=== PATIENT | female | born 1950 | race Caucasian/White ===

== ENCOUNTER 2016-06-04 08:37 | Emergency (ER) | payer OTHER ==
[2016-06-04] MEDS ORDERED: HYDROcod/ACETAM 5/325 MG TABLET PO STA (09:43)
[2016-06-04] MEDS ORDERED: DEXAMETHASONE 10 MG/ML VIAL PO STA (09:43)
[2016-06-04] MEDS ORDERED: GABAPENTIN 100 MG CAPSULE PO STA (09:43)
[2016-06-04] MEDS ORDERED: HYDROcod/ACETAM 5/325 MG TABLET ONE (10:29)
[2016-06-04] MEDS ORDERED: CHERRY SYRUP 10 ML UDC PO ONE (10:29)
[2016-06-04] MEDS ORDERED: GABAPENTIN 100 MG CAPSULE PO ONE (10:29)
[2016-06-04] MEDS ORDERED: DEXAMETHASONE 10 MG/ML VIAL ONE (10:29)
== END 2016-06-04 12:00 | disposition home or self-care (01) ==
DX: M79.641 Pain in right hand (principal); W01.198A Fall on same level from slipping, tripping and stumbling with subsequent striking against other object, initial encounter; G56.01 Carpal tunnel syndrome, right upper limb; M06.9 Rheumatoid arthritis, unspecified
CPT/HCPCS: 36415; 85025; 85651; 86140; 99283; A9270

== ENCOUNTER 2019-10-07 08:20 | Emergency (ER) | payer MEDICARE, OTHER ==
[2019-10-07] MEDS ORDERED: LIDOCAINE 1% 2 ML VIAL MC ONE (08:44)
[2019-10-07] MEDS ORDERED: SULFAMETH/TRIMETH DS 800/160 MG TABLET PO STA (08:44)
[2019-10-07] MEDS ORDERED: cefTRIAXone 1 GM VIAL IM STA (08:44)
--- NOTE | 2019-10-07 09:29 | ED Physician Documentation ---
PD HPI SKIN - Stated complaint Stated Complaint: R LEG PX - Chief complaint Chief Complaint: Wound - History obtained from History obtained from: Patient - Additional information Additional information: Patient comes emergency department complaining of redness, pain, and swelling to her right calf after sustaining a bite or sting yesterday. No fever or chills. Patient states she has had 2 other spider bites and they have reacted the same way. No drainage. No other complaints at this time Review of Systems Ten Systems: 10 systems reviewed and negative Constitutional: reports: Reviewed and negative Eyes: reports: Reviewed and negative Ears: reports: Reviewed and negative Nose: reports: Reviewed and negative Throat: reports: Reviewed and negative Cardiac: reports: Reviewed and negative Respiratory: reports: Reviewed and negative GI: reports: Reviewed and negative : reports: Reviewed and negative Skin: reports: Bite / sting, Other (Erythema) Musculoskeletal: reports: Extremity swelling Neurologic: reports: Reviewed and negative Psychiatric: reports: Reviewed and negative Endocrine: reports: Reviewed and negative Immunocompromised: reports: Reviewed and negative PD PAST MEDICAL HISTORY - Past Medical History Past Medical History: No Cardiovascular: None Respiratory: None Neuro: None Endocrine/Autoimmune: HyPOthyroidism GI: None PHLEBOTOMY SPECIALIST: None : None HEENT: None Psych: None Musculoskeletal: Rheumatoid arthritis Derm: None - Past Surgical History Past Surgical History: Yes /PHLEBOTOMY SPECIALIST: Hysterectomy - Present Medications Home Medications: Ambulatory Orders Medication Instructions Recorded Confirmed Cephalexin [Keflex] 500 mg PO Q6H #28 capsule 10/07/19 Sulfamethox/Trimeth 800/160 1 each PO BID #14 tablet 10/07/19 [Bactrim Ds 800/160] - Allergies Allergies/Adverse Reactions: Allergies Allergy/AdvReac Type Severity Reaction Status Date / Time hydrochlorothiazide Allergy Anaphylaxis Verified 10/07/19 08:37 hydroxychloroquine Allergy Anaphylaxis Verified 10/07/19 08:37 ibuprofen AdvReac Nausea Verified 10/07/19 08:37 - Social History Does the pt smoke?: Yes Does the pt drink ETOH?: Yes ETOH Use: Beer - Immunizations Immunizations are current?: Yes PD ED PE NORMAL - Vitals Vital signs reviewed: Yes - General General: Alert and oriented X 3, No acute distress - HEENT HEENT: Atraumatic, PERRL, EOMI, Moist mucous membranes - Neck Neck: Supple, no meningeal sign - Cardiac Cardiac: RRR, No murmur, Strong equal pulses - Respiratory Respiratory: No respiratory distress - Derm Derm: Warm and dry, Other (Intense erythema involving the inferior third of the patient's right calf and extending to the patient's ankle. Superiorly located within the erythema is a dark, purplish discolored focus, which appears to be a puncture wound. mild induration; no fluctuance.) - Extremities Extremities: No deformity - Neuro Neuro: Alert and oriented X 3 - Psych Psych: Normal mood, Normal affect Results - Vitals Vitals: Vital Signs - 24 hr 10/07/19 10/07/19 10/07/19 08:34 08:49 09:41 Temperature 36.8 C 36.8 C 36.3 C L Heart Rate 114 H 114 H 102 H Respiratory 16 16 16 Rate Blood Pressure 190/104 H 190/104 H 169/99 H O2 Saturation 98 98 100 Oxygen O2 Source Room air PD MEDICAL DECISION MAKING - ED course Complexity details: considered differential, d/w patient ED course: I discussed with the patient that this does appear to be more than just an inflammatory reaction to a bite/sting, and I felt that she should be on an tibiotics. The patient was started on Bactrim here in the emergency department. She is not a diabetic and is not on chronic steroids for her rheumatoid arthritis, and I do not feel she needs IV antibiotics at this point in time. We have discussed the usual indications for return and the need to take the antibiotics regularly, as scheduled. Patient is agreeable to this plan. Departure - Departure Disposition: 01 Home, Self Care Clinical Impression: Insect bite Qualifiers: Encounter type: initial encounter Site of insect bite: lower leg Laterality: right Qualified Code(s): S80.861A - Insect bite (nonvenomous), right lower leg, initial encounter Cellulitis Qualifiers: Site of cellulitis: extremity Laterality: right Condition: Stable Instructions: Cellulitis Dc, ED Sting Bite Insect Infec Prescriptions: Sulfamethox/Trimeth 800/160 [Bactrim Ds 800/160] 1 each PO BID #14 tablet Cephalexin [Keflex] 500 mg PO Q6H #28 capsule Discharge Date/Time: 10/07/19 09:52
[2019-10-07 09:52] VITALS: BP 169/99
== END 2019-10-07 09:52 | disposition home or self-care (01) ==
LOC: ED 08:20
DX: S80.861A Insect bite (nonvenomous), right lower leg, initial encounter (principal); L03.115 Cellulitis of right lower limb; W57.XXXA Bitten or stung by nonvenomous insect and other nonvenomous arthropods, initial encounter; F17.200 Nicotine dependence, unspecified, uncomplicated
CPT/HCPCS: 96372; 99283; 99284; A9270

== ENCOUNTER 2019-11-14 09:28 | Emergency (ER) | payer MEDICARE, OTHER ==
[2019-11-14] MEDS ORDERED: CLINDAMYCIN 150 MG CAPSULE PO STA (09:52)
--- NOTE | 2019-11-14 09:55 | ED Physician Documentation ---
History of Present Illness - Stated complaint Stated Complaint: INSECT BITE F/U - Chief complaint Chief Complaint: Ext Problem - History obtained from History obtained from: Patient - Additonal information Additional information: This is a 69-year-old woman who was seen a little over a month ago for a spider bite on her right calf. She was placed on Keflex and Bactrim and was doing okay on antibiotics. Finished the antibiotics now about a month ago and has quite painful increased redness of that leg with a sore. 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 : None HEENT: None Psych: None Musculoskeletal: Rheumatoid arthritis Derm: None - Past Surgical History Past Surgical History: Yes /STAVE GRADER: Hysterectomy - Present Medications Home Medications: Ambulatory Orders Medication Instructions Recorded Confirmed Cephalexin [Keflex] 500 mg PO Q6H #28 capsule 10/07/19 Sulfamethox/Trimeth 800/160 1 each PO BID #14 tablet 10/07/19 [Bactrim Ds 800/160] Clindamycin HCl [Clindamycin 300MG 300 mg PO Q6H 14 Days capsule 11/14/19 CAP] Hydrocodone/Acetaminophen 1 - 2 tab PO Q6H PRN #15 tablet 11/14/19 [Hydrocodone-Acetamin 5-325 mg] - Allergies Allergies/Adverse Reactions: Allergies Allergy/AdvReac Type Severity Reaction Status Date / Time hydrochlorothiazide Allergy Anaphylaxis Verified 11/14/19 09:34 hydroxychloroquine Allergy Anaphylaxis Verified 11/14/19 09:34 ibuprofen AdvReac Nausea Verified 11/14/19 09:34 - Social History Does the pt smoke?: Yes Does the pt drink ETOH?: Yes - Immunizations Immunizations are current?: Yes PD ED PE NORMAL - Vitals Vital signs reviewed: Yes - General General: Alert and oriented X 3, No acute distress - HEENT HEENT: PERRL, EOMI - Extremities Extremities: Other (There is a necrotic ulcer about two thirds of the way down the calf, it was debrided during exam and a culture was obtained. There is cellulitis from the upper calf down throughout the foot. I was unable to palpate pedal pulses but they were dopplerable.) - Neuro Neuro: Alert and oriented X 3, Normal speech Results - Vitals Vitals: Vital Signs - 24 hr 11/14/19 11/14/19 09:34 09:56 Temperature 36.7 C 37.1 C Heart Rate 124 H 108 H Respiratory 20 18 Rate Blood Pressure 196/112 H 160/100 H O2 Saturation 98 98 Oxygen O2 Source Room air PD MEDICAL DECISION MAKING - ED course ED course: This is a 69-year-old woman who has a recalcitrant ulcer with cellulitis on the right lower extremity. She is tachycardic but not febrile. I recommended that we do labs. 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 As such we negotiated that I would start her on clindamycin and if not quickly improving, she needed to figure out alternative care arrangements for her such that she could be hospitalized if she does not respond to this. Also discussed with her that she needed to contact her primary care physician, the necrotic ulcer probably needs a wound care referral. Departure - Departure Disposition: 01 Home, Self Care Clinical Impression: Infected ulcer of skin Qualifiers: Non-pressure ulcer stage: with fat layer exposed Qualified Code(s): L98.492 - Non-pressure chronic ulcer of skin of other sites with fat layer exposed Condition: Good Record reviewed to determine appropriate education?: Yes Instructions: ED Skin Infec MRSA Suspect Conf Prescriptions: Clindamycin HCl [Clindamycin 300MG CAP] 300 mg PO Q6H 14 Days capsule Hydrocodone/Acetaminophen [Hydrocodone-Acetamin 5-325 mg] 1 - 2 tab PO Q6H PRN #15 tablet PRN Reason: Pain Comments: We are performing a wound culture and will call you in a couple of days if a resistant organism is identified. As discussed I have recommended labs today to see if you need to be admitted, since you cannot be admitted because you are caring for your , I would recommend returning immediately if worsening. Also you need to contact your primary care physician as I think a wound care referral is in order. Keep it elevated as much as possible. Even though you have pulses in your foot you may have some elements of peripheral vascular disease and I recommend cessation of smoking. Discharge Date/Time: 11/14/19 10:09
[2019-11-14 09:57] VITALS: BP 160/100
== END 2019-11-14 10:09 | disposition home or self-care (01) ==
LOC: ED 09:28
DX: L97.213 Non-pressure chronic ulcer of right calf with necrosis of muscle (principal); L03.115 Cellulitis of right lower limb; R00.0 Tachycardia, unspecified; F17.200 Nicotine dependence, unspecified, uncomplicated
CPT/HCPCS: 87070; 87077; 87181; 87205; 99283

== ENCOUNTER 2019-11-21 13:30 | Inpatient (IN) | payer MEDICARE, OTHER ==
[2019-11-21] MEDS ORDERED: levoFLOXacin 750 MG/150 ML 750 MG/150 ML BAG IV STA (14:34)
--- NOTE | 2019-11-21 14:37 | ED Physician Documentation ---
History of Present Illness - Stated complaint Stated Complaint: INSECT BITE CHECK - Chief complaint Chief Complaint: Ext Problem - History obtained from History obtained from: Patient - Additonal information Additional information: 69-year-old female returns to the emergency department for evaluation of treatment of a nonhealing right calf ulceration and right leg infection. She was initially seen 10/07/2019 for evaluation of posterior calf cellulitis that she attributed to a spider bite. With the initial ED visit she was started on Keflex and Bactrim. She states that she did at first have some improvement in the swelling and erythema but it did not fully go away. She re-presented to the emergency department 11/14/[address] Dr[address] Mackay. At that time she had fairly significant right lower calf erythema with a noted posterior calf ulceration. She declined labs or admission as she had nobody to care for her . A wound culture was obtained and she was started on clindamycin. She states that for the first 2 days she was on clindamycin the redness improved but over the last 3 days now the redness has increased markedly. She has had no fevers. Denies chest pain or shortness of breath. She replies to me that we have 3 days to make this better as she now has care for her . PMH: rheumatoid arthritis and hypertension. Social: Positive tobacco Meds: None other than current clindamycin rx Review of Systems Constitutional: denies: Fever Eyes: reports: Reviewed and negative Ears: reports: Reviewed and negative Nose: reports: Reviewed and negative Throat: reports: Reviewed and negative Cardiac: reports: Chest pain / pressure Respiratory: reports: Reviewed and negative GI: reports: Reviewed and negative : reports: Reviewed and negative Skin: reports: Lesions Musculoskeletal: reports: Joint pain. 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: Yes Smoking Status: Current every day smoker Does the pt drink ETOH?: Yes Does the pt have substance abuse?: No - Immunizations Immunizations are current?: Yes PD ED PE EXPANDED - General General: Alert, No acute distress - Neck Neck: Supple w/out meningeal sx. No: Adenopathy - Cardiac Cardiac: Regular Rate, Regular Rhythm, Radial strong equal, Cap refill < 2 sec (Right foot with biphasic Doppler pulses both tibial and dorsalis pedis. Brisk cap refill.) - Respiratory Respiratory: No: Distress, Labored - Abdomen Abdomen: Normal Bowel sounds. No: Tender to palpation - Extremities Extremities: Right leg (Extensive swelling and erythema of right leg from just below the knee to encompass the entire foot. Large ulceration central posterior calf with milky and honey crusting exudate. Smaller 1 cm ulceration right lateral calf with some purulent exudate) - Neuro Neuro: Alert and Oriented X 3, CNII-XII intact, Normal speech - GCS Eye Opening: Spontaneous Motor: Obeys Commands Verbal: Oriented Total: 15 Results - Vitals Vitals: Vital Signs - 24 hr 11/21/19 13:42 Temperature 37 C Heart Rate 92 Respiratory 16 Rate Blood Pressure 190/102 H O2 Saturation 100 Oxygen O2 Source Room air - Labs Labs: Laboratory Tests 11/21/19 11/21/19 11/21/19 14:52 14:52 14:52 WBC 3.8 L RBC 4.59 Hgb 14.5 Hct 43.7 MCV 95.2 MCH 31.6 H MCHC 33.2 RDW 12.7 Plt Count 230 MPV 9.4 Neut # (Auto) 2.3 Lymph # (Auto) 1.1 L [place] # (Auto) 0.3 Eos # (Auto) 0.0 Baso # (Auto) 0.0 Absolute Nucleated RBC 0.00 Nucleated RBC % 0.0 Sodium 133 L Potassium 3.6 Chloride 98 L Carbon Dioxide 25 Anion Gap 10.0 BUN < 5 L Creatinine 0.4 Estimated GFR (MDRD) 159 Glucose 103 H Lactic Acid 1.0 Calcium 9.2 Total Bilirubin 0.6 AST 28 ALT 24 Alkaline Phosphatase 74 C-Reactive Protein 1.2 H Total Protein 8.6 H Albumin 4.2 Globulin 4.4 H Albumin/Globulin Ratio 1.0 Lipase 41 PD MEDICAL DECISION MAKING - ED course Complexity details: reviewed old records, reviewed results, re-evaluated patient, considered differential, d/w patient ED course: 69-year-old female returns to the emergency department for evaluation and treatment of a right posterior leg infection that has failed to respond to now 2 courses of oral antibiotics. Recent wound culture shows that it grew Klebsiella, staph and enterococcus. Unfortunately the staff showed resistance to current clindamycin. However all 3 were susceptible to Levaquin, which I have initiated. A repeat wound culture has been obtained. She has no significant leukocytosis. Her lactic acid is not elevated. CRP is only marginally elevated. I have discussed these findings with the day hospitalist Dr. Sams. She is agreed that the patient should come in overnight for observation and IV antibiotic. Departure - Departure Disposition: ED Place in Observation Clinical Impression: Cellulitis of right leg Leg ulcer Qualifiers: Laterality: right Non-pressure ulcer stage: with fat layer exposed Qualified Code(s): L97.912 - Non-pressure chronic ulcer of unspecified part of right lower leg with fat layer exposed Hypertension Qualifiers: Hypertension type: unspecified Qualified Code(s): I10 - Essential (primary) hypertension Condition: Stable
[2019-11-21 15:04] LABS: BASOPHILS % (AUTO) 0.8 %; EOSINOPHILS % (AUTO) 0.8 %; HGB - HEMOGLOBIN 14.5 g/dL (12.0-16.0); LYMPHOCYTES # (AUTO) 1.1 10^3/uL (1.5-3.5); LYMPHOCYTES % (AUTO) 29.4 %; MEAN CORPUSCULAR HEMOGLOBIN 31.6 pg (27.0-31.0); MEAN CORPUSCULAR HGB CONC 33.2 g/dL (32.0-36.0); MEAN CORPUSCULAR VOLUME 95.2 fL (81.0-99.0); MEAN PLATELET VOLUME 9.4 fL (7.9-10.8); MONOCYTES # (AUTO) 0.3 10^3/uL (0.0-1.0); MONOCYTES % (AUTO) 7.9 %; NEUTROPHILS # (AUTO) 2.3 10^3/uL (1.5-6.6); NEUTROPHILS % (AUTO) 60.6 %; PLT - PLATELET COUNT 230 10^3/uL (130-450); RED BLOOD COUNT 4.59 10^6/uL (4.20-5.40); RED CELL DISTRIBUTION WIDTH 12.7 % (12.0-15.0); WHITE BLOOD COUNT 3.8 x10^3/uL (4.8-10.8)
[2019-11-21 15:25] LABS: ALBUMIN 4.2 g/dL (3.2-5.5); ALKALINE PHOSPHATASE 74 IU/L (42-121); ALT ALANINE AMINOTRANSFERASE 24 IU/L (10-60); AST ASPARTATE AMINOTRANSFERASE 28 IU/L (10-42); BILIRUBIN,TOTAL 0.6 mg/dL (0.2-1.0); BUN - BLOOD UREA NITROGEN < 5 mg/dL (6-20); CALCIUM 9.2 mg/dL (8.5-10.3); CARBON DIOXIDE - CO2 25 mmol/L (21-32); CHLORIDE 98 mmol/L (101-111); CREATININE 0.4 mg/dL (0.4-1.0); CRP - C-REACTIVE PROTEIN 1.2 mg/dL (0-1.0); GLUCOSE 103 mg/dL (70-100); LIPASE 41 U/L (22-51); SODIUM 133 mmol/L (135-145); TOTAL PROTEIN 8.6 g/dL (6.7-8.2)
[2019-11-21] MEDS ORDERED: oxyCODONE 5 MG TABLET PO PRN (15:54)
[2019-11-21] MEDS ORDERED: ONDANSETRON 4 MG/2 ML VIAL IVP PRN (15:54)
[2019-11-21] MEDS ORDERED: SODIUM CHLORIDE FLUSH 0.9% 10 ML SYRINGE IVP PRN (15:54)
[2019-11-21] MEDS ORDERED: cloNIDine 0.1 MG PATCH TOP SCH (16:00)
[2019-11-21 16:26] LABS: INR 1.1 (0.8-1.2)
--- NOTE | 2019-11-21 16:45 | PHARMACY PROGRESS NOTE ---
- Best Possible Medication History Admit Date and Time: 11/21/19 1552 Processed by: Pharmacy Medication History completed: Yes Patient Interview: Completed Secondary Source(s): Physician records (PATIENT INTERVIEWED BY DIVISION OPERATIONS MANAGER. PATIENT REPORTS NO HOME MEDICATIONS ), Pharmacy records, Insurance records As the person ultimately responsible for medication therapy, providers are able to order a medication from an existing home medication list in [facility] via the "Reconcile Routine" prior to Confirmation of that medication by sales and support center agent. Such practice is discouraged except when the physician, in their clinical judgment, deems that a medical need exists for a medication without regard to previous use.
[2019-11-21] MEDS ORDERED: METOPROLOL 5 MG/5 ML VIAL IVP STA (16:49)
[2019-11-21] MEDS ORDERED: VANCOMYCIN INJ 2 GM in SODIUM CHLORIDE 0.9% 500 ML IV SCH (17:30)
--- NOTE | 2019-11-21 17:57 | PHARMACY PROGRESS NOTE ---
- Therapy Status Vancomycin regimen day #: 1 Therapy status: Awaiting steady state Basis for treatment: Empirical Treatment indication: 11/20 VANCOMYCIN INITIATED: 2G X1 LOADING DOSE MAINTENACE DOSE: 1250 Q8H CRCL: ~90ML/MIN; SCR: 0.4MG/DL T1/2 = ~8H NEW CULTURES DRAWN 11/20 IN ED TROUGH 11/21 @ 1630 (BEFORE 4TH DOSE) Trough goal: 15-20 - CAREN Risk Risk level for Acute Kidney Injury: Moderate - Monitoring and Recommendation Clinical response to treatment: I&O Previous 24 hours 11/19/19 11/20/19 11/21/19 23:59 23:59 23:59 Intake Total 150 Balance 150 Lab Results 11/21/19 14:52 BUN < 5 L Creatinine 0.4 Estimated GFR (MDRD) 159 Cultures 11/21/19 15:41 Leg - Right Wound Culture - Preliminary Monitoring plan: Daily serum creatinine
[2019-11-21] MEDS: SODIUM CHLORIDE 0.9% 1,000 ML IV SCH (18:29)
[2019-11-21] MEDS: SODIUM CHLORIDE FLUSH 0.9% 10 ML SYRINGE IVP SCH (18:42)
--- NOTE | 2019-11-21 19:56 | HISTORY & PHYSICAL EXAMINATION ---
DATE OF SERVICE: 11/21/2019 Physician: Candice Greer MD HISTORY OF PRESENT ILLNESS: This is a 69-year-old white female with a history of intermittent or white coat hypertension, rheumatoid arthritis, who has previously been on immunosuppressive therapy, but none in the last 3-5 years, history of 3-jwpf-t-day smoking. In September of this year, she developed a spider bite of her right posterior calf and presented to the emergency room, as it was getting red, and was started on Keflex and Bactrim. It improved slightly, and then started to get worse with an open wound and more redness and swelling and she returned back to the ER on 11/13. A large ulcer was seen that was debrided and sent for culture, and she was started on clindamycin, she again started to get improvement in the redness and swelling, but then over the last 3 days it has worsened and has had the most spread of her swelling, has burning pain, has marked redness with bullae and there are two areas now with openings that have scabbed up. Since that debridement and wound culture was sent for evaluation, it has grown Klebsiella, Staphylococcus aureus and Enterococcus. Because of the worsening today, she returned again to the ER. In the ER, she was found to have no fever, a white count that was low at 3.8, elevated CRP of 1.2, blood pressure of 190/102 and marked redness of the lower extremity with swelling and 2 scabbed over ulcers of the right calf. She is being admitted for management of cellulitis and a leg ulcer that has failed 2 different courses of antibiotics in a patient with leukopenia. PAST MEDICAL HISTORY 1. Hypertension. 2. Rheumatoid arthritis. 3. Remote history of cervical cancer. ALLERGIES 1. HYDROCHLOROTHIAZIDE. 2. HYDROXYCHLOROQUINE. 3. IBUPROFEN. MEDICATIONS: None. FAMILY HISTORY: Positive for cancer and dementia and atherosclerotic heart disease. She has one living son who lives in [place] is healthy. SOCIAL HISTORY: Patient used to be a 0-kkct-z-day smoker that she decreased on her own to 1/2-pack a day when the leg [id number] began, which is now 2 months ago. She used to drink more alcohol, but now has not had any drinks except for 1 beer over this 2 month period, also because of the infection, she said. She has marijuana to use p.r.n. but currently has not used it. 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 She is active, drives, does all the housework. REVIEW OF SYSTEMS: There has been no fever, she denies any cardiopulmonary complaints. She describes using only Tylenol for her rheumatoid arthritis pain, no nonsteroidals or any other prescription medicines from a early morning over the past 3 years. She thinks she has carpal tunnel syndrome in the right wrist and is wearing a brace and has the most deformity from her RA in the right hand. A comprehensive review of systems was performed and the pertinent positives are listed, the rest are negative. PHYSICAL EXAMINATION GENERAL: Elderly white female, who appears older than her age. VITAL SIGNS: Blood pressure 190/102, heart rate 90 in sinus rhythm, afebrile at 37 centigrade, room air saturation 100%. HEENT: Unremarkable. NECK: No JVD in a vertical position. CHEST: Clear. HEART: Normal heart sounds. ABDOMEN: Soft, nontender, nondistended. EXTREMITIES: The right hand has a deformity of RA in most of her joints and she is wearing a wrist brace. The left hand appears normal. The left leg appears normal. The right leg has bright red swelling from the midfoot up to just below the knee and there was 1 area of bullae of the right anterior arboleda, and there are 2 areas of deep ulceration of the right posterior arboleda, which are scabbed over and dry. NEUROLOGIC: Grossly intact. LABORATORY DATA: Sodium 133, potassium 3.6, BUN less than 5, creatinine 0.4. Lactic acid 1.0. Normal liver tests. C-reactive protein 1.2. Lipase normal. INR normal. White blood count 3.8, platelet count 230, hemoglobin 14.5. No EKG was done. No chest x-ray was done or any imaging of the leg. The microbiology data, which is from 11/14/2019 shows growth of Klebsiella, Staphylococcus aureus and Enterococcus, all 3 are sensitive to Levaquin. The Staphylococcus aureus is resistant to Clindamycin. PRINCIPAL DIAGNOSES 1. Cellulitis. No SIRS or sepsis, given normal vital signs. 2. Leg ulcer. 3. Leukopenia. 4. Hypertension, uncontrolled. 5. Smoker. 6. Rheumatoid arthritis. PLAN: Admit patient to inpatient status, given the fact that she has failed 2 courses of antibiotics as an outpatient and her concern of significant infection with the leukopenia. Resend a wound culture, this was done in the ER. Begin IV antibiotics. She received Levaquin x1 dose in the ER because all 3 bacteria were reported to be sensitive to Levaquin. Will start a course of iv Vancomycin for the Staph species, and use iv Ceftriaxone (these were chosen after discussion with Pharmacist, Itzel). Await new culture results to tailor the antibiotics. Obtain blood cultures. Follow her CBC daily. Obtain leg XRay imaging to evaluate for deeper infection and obtain CT to evaluate for necrotizing fascitis or osteomyelitis. Continue treatment with what she uses, Tylenol, for her arthritic pain. Patient was using Cetaphil soap and some type of cream for the redness, but it was causing burning and itching and not helpful. Topical management for the skin and the calf ulcer will be done after consultation with general surgery versus orthopedic surgery for probable ulcer debridement. Start medications to treat her poorly controlled HTN; will start a Clonidine patch, will use iv Lopressor or Labetolol or iv Hydralazine for urgent hypertensive BP management. Will order a low salt diet; as I told her this, she said she "doesn't believe in that" and said she eats salt freely. Obtain an EKG to evaluate for LVH and as a pre-op evaluation, if she will need surgery. Given the untreated HTN and history of 2 PPD smoking, will also do FREDIS of the right lower extremity, to evaluate for vascular disease of that leg. A Nicotine patch will be ordered to use while she is here. Depending on her discharge location, her night time babysitter caregiving for her will need assistance; a Social Work consult will be requested to help with that plan. DEEP VENOUS THROMBOSIS PROPHYLAXIS: Pharmacotherapy. CODE STATUS: DNR. ATTESTATION: Patient is expected to be discharged or transferred to another facility within 96 hours: Yes. TD: 11/21/2019 17:34 [email or web address]
[2019-11-21] MEDS: diphenhydrAMINE INJ 50 MG/ML VIAL IVP PRN (20:17)
[2019-11-21] MEDS: FAMOTIDINE 20 MG TABLET PO SCH (21:25)
[2019-11-22] MEDS: SODIUM CHLORIDE FLUSH 0.9% 10 ML SYRINGE IVP SCH ×3 (00:11→17:49)
[2019-11-22] MEDS: ACETAMINOPHEN 325 MG TABLET PO PRN ×4 (00:18→20:39)
[2019-11-22] MEDS: VANCOMYCIN INJ 1 GM, VANCOMYCIN INJ 250 MG in SODIUM CHLORIDE 0.9% 250 ML IV SCH ×2 (05:17→17:58)
[2019-11-22] MEDS ORDERED: SODIUM CHLORIDE 0.9% IV SCH (05:30)
[2019-11-22] MEDS ORDERED: VANCOMYCIN IV SCH (05:30)
[2019-11-22 05:55] LABS: EOSINOPHILS # (AUTO) 0.1 10^3/uL (0.0-0.7); EOSINOPHILS % (AUTO) 1.6 %; HGB - HEMOGLOBIN 12.7 g/dL (12.0-16.0); LYMPHOCYTES % (AUTO) 33.1 %; MEAN CORPUSCULAR HEMOGLOBIN 32.2 pg (27.0-31.0); MEAN CORPUSCULAR HGB CONC 33.7 g/dL (32.0-36.0); MEAN CORPUSCULAR VOLUME 95.4 fL (81.0-99.0); MEAN PLATELET VOLUME 9.7 fL (7.9-10.8); MONOCYTES # (AUTO) 0.5 10^3/uL (0.0-1.0); MONOCYTES % (AUTO) 14.6 %; NEUTROPHILS # (AUTO) 1.5 10^3/uL (1.5-6.6); NEUTROPHILS % (AUTO) 49.7 %; PLT - PLATELET COUNT 183 10^3/uL (130-450); RED BLOOD COUNT 3.95 10^6/uL (4.20-5.40); RED CELL DISTRIBUTION WIDTH 12.5 % (12.0-15.0); WHITE BLOOD COUNT 3.1 x10^3/uL (4.8-10.8)
[2019-11-22 06:06] LABS: BUN - BLOOD UREA NITROGEN < 5 mg/dL (6-20); CALCIUM 8.6 mg/dL (8.5-10.3); CARBON DIOXIDE - CO2 22 mmol/L (21-32); CHLORIDE 105 mmol/L (101-111); CREATININE 0.4 mg/dL (0.4-1.0); GLUCOSE 76 mg/dL (70-100); SODIUM 136 mmol/L (135-145)
[2019-11-22] MEDS ORDERED: IOVERSOL 320 100 ML VIAL IVP ONE ×2 (09:02→17:55)
--- NOTE | 2019-11-22 09:49 | CT Report ---
PROCEDURE: LOWER EXTREMITY W - RT INDICATIONS: R leg cellulitis, eval for nec fasc or osteomyelit TECHNIQUE: After IV contrast infusion, 1 mm axial sections acquired of the right lower leg, with coronal and sag ittal reformats. COMPARISON: None. FINDINGS: Image quality: Excellent. Bones: There is significant osteopenia. Moderate tricompartmental osteoarthritis in right knee is se en. A right ankle joint osteoarthritic changes also noted. No fracture or dislocation. No cortical er osion or destruction. No periosteal reaction is seen. There is no suspicious intraosseous lesion. Ost eoarthritic changes also noted throughout right ankle and foot. Well-defined plantar calcaneal enthes ophyte is seen. Soft tissues: There is no significant right knee joint effusion. Subcutaneous fat stranding and tiffany a throughout right lower leg is seen with mild overlying skin thickening. Subtle ulceration involving posterior lateral aspect of mid to distal lower leg is noted. No discrete drainable abscess collecti on. There is no gross underlying muscle involvement. No intramuscular mass or fluid collection. No fu ll-thickness ankle tendon rupture is seen. Achilles tendon is intact. IMPRESSION: 1. Shallow ulceration involving posterior lateral right mid to lower calf region with extensive cellu litis throughout right lower leg. No discrete drainable abscess collection. No evidence of underlying muscle or tendon involvement. 2. Osteoarthritic changes throughout visualized right lower extremity. No fracture or dislocation. No CT evidence of osteomyelitis. No suspicious intraosseous lesion. Osteopenia. Reviewed by: Phillip Regalado MD on 11/22/2019 9:47 AM PDT Approved by: Phillip Regalado MD on 11/22/2019 9:47 AM PDT Station ID: [id number]
[2019-11-22] MEDS: cefTRIAXone 2 GM in SODIUM CHLORIDE 0.9% MINIBAG 100 ML IV SCH (10:32)
[2019-11-22] MEDS: FAMOTIDINE 20 MG TABLET PO SCH ×2 (10:33→20:38)
[2019-11-22] MEDS: ENOXAPARIN 40 MG/0.4 ML SYRINGE SUBQ SCH (10:33)
[2019-11-22] MEDS: NICOTINE 7 MG PATCH TOP SCH (10:34)
--- NOTE | 2019-11-22 11:37 | PROVIDER PROGRESS NOTE ---
Assessment/Plan - Problem List (1) Cellulitis of right leg Assessment/Plan: The wound culture from her ER debridement done 11/14/2019 has grown out Enterococcus, Klebsiella and Staph aureus. She was on clindamycin and that Staph aureus is clindamycin resistant. She is now on IV antibiotics using iv Vanco and iv Ceftriaxone. A repeat wound culture was sent yesterday at the time of admission. Blood cx also done. Continue iv antibiotic management and await evaluation by surgery for debridement. Await results of CT of the leg to evaluate for necrotizing fasciitis or possible spread into the bone with osteomyelitis. (Per today's radiologist, no plain x- ray of the leg was needed, radiology said to go directly to CT scanning). (2) Leg ulcer Qualifiers: Qualified Code(s): L97.912 - Non-pressure chronic ulcer of unspecified part of right lower leg with fat layer exposed Assessment/Plan: As above. Await for recommendations from the general surgeon after debridement. 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 (3) Leukopenia Assessment/Plan: Perhaps her RA is causing the low white blood count. This is also concerning in terms of possible sepsis however her blood cultures are negative to date, and Lactic Acid level was not elevated. Follow CBC daily. (4) Osteopenia determined by x-ray Assessment/Plan: Will start vit D and calcium po (5) Rheumatoid arthritis Assessment/Plan: In her remote past she was on tx for RA, but not for >2-3 years. Perhaps the RA is causing the leukopenia. She manages the pain of RA with Tylenol, which has been ordered. It could be suppressing a fever, however. (6) Hypertension Qualifiers: Qualified Code(s): I10 - Essential (primary) hypertension Assessment/Plan: Patient was on no meds for blood pressure control for 2 to 3 years and told me yesterday that she did not "believe in a low-salt diet". She has been started on a weekly topical Clonidine patch for management of blood pressure here. (7) Smoker Assessment/Plan: She has been a 2 pack-a-day smoker, but decreased to half-pack a day 2 mos ago when this leg started to be infected. Work-up for peripheral arterial disease is therefore to be done today because of this slow to heal leg ulcer, by getting an FREDIS>> The results of this show that she does have moderate arterio-sclerotic disease and a CTA with runoff is recommended. Will order a lipid panel as well. Nicotine patch has been ordered (8) PVD (peripheral vascular disease) Assessment/Plan: The results of the FREDIS show that she does have mild PVD R leg and a CTA with runoff was recommended to eval R foot. Will order a lipid panel as well. Discussed the importance of smoking cessation with her because of this finding. - Current Meds Current Meds: Current Medications Generic Name Dose Route Start Last Admin Trade Name Freq PRN Reason Stop Dose Admin Acetaminophen 650 mg 11/21/19 15:54 11/22/19 05:22 Tylenol PO 650 mg Q4HR PRN Administration Pain 1 to 4 Clonidine HCl 1 patch 11/21/19 16:00 11/21/19 18:42 [id number] TOP 1 patch Q7D LEV Administration Diphenhydramine HCl 25 mg 11/21/19 20:01 11/21/19 20:17 Benadryl Inj IVP 25 mg Q6H PRN Administration Allergy Symptoms Enoxaparin Sodium 40 mg 11/22/19 09:00 11/22/19 10:33 Lovenox SUBQ Not Given DAILY LEV Famotidine 20 mg 11/21/19 21:00 11/22/19 10:33 Pepcid PO 20 mg BID LEV Administration Sodium Chloride 1,000 mls @ 50 mls/hr 11/21/19 16:00 11/22/19 11:21 Normal Saline 0.9% IV 50 mls/hr .Q20H LEV Infusion Ceftriaxone Sodium 2 gm/ 100 mls @ 200 mls/hr 11/22/19 09:00 11/22/19 11:15 Sodium Chloride IV Infused DAILY LEV Infusion Vancomycin HCl 1 gm/ 250 mls @ 125 mls/hr 11/22/19 05:30 11/22/19 07:20 Vancomycin HCl 250 mg/ Sodium IV Infused Chloride Q12H LEV Infusion Nicotine 1 patch 11/22/19 09:00 11/22/19 10:34 Nicoderm TOP Not Given DAILY LEV Sodium Chloride 10 ml 11/21/19 17:00 11/22/19 10:34 Normal Saline Flush 0.9% IVP 10 ml 0100,0900,1700 LEV Administration - Lab Result Fish Bone Diagrams: 11/22/19 05:51 11/22/19 05:51 - Additional Planning My Orders: My Active Orders 11/21/19 15:54 Activity Orders [RC] Q2HR IO [RC] IOSHIFT Initiate Bowel Care Protocol [RC] .protocol Initiate Line Care Protocol [RC] QSHIFT Initiate Personal Care Protoco [RC] .protocol Oxygen Therapy [RC] .PRN Vital Signs [RC] 0800,1600,0000 Acetaminophen [Tylenol] 650 mg PO Q4HR PRN Ondansetron Inj [Zofran Inj] 4 mg IVP Q6HR PRN Sodium Chloride Flush 0.9% [Normal Saline Flush 0.9%] 10 ml IVP PRN PRN oxyCODONE [Roxicodone] 10 mg PO Q4HR PRN Code Status [OTHERS] Routine Condition of Patient [OTHERS] Routine DVT Prophylaxis [OTHERS] Routine 11/21/19 15:55 IV Insert [RC] .ONCE 11/21/19 15:57 Evaluate and Treat PT [PT] Routine 11/21/19 16:00 Sodium Chloride 0.9% [Normal Saline 0.9%] 1,000 ml IV 50 mls/hr cloNIDine 0.1 MG PATCH [[id number]] 1 patch TOP Q7D 11/21/19 Dinner Low Sodium Diet [DIET] 11/21/19 17:00 Sodium Chloride Flush 0.9% [Normal Saline Flush 0.9%] 10 ml IVP 0100,0900,1700 11/21/19 21:00 Famotidine [Pepcid] 20 mg PO BID 11/22/19 Consult [Orthopedics Consult] [CONS] Routine 11/22/19 05:30 Vancomycin Inj [Vancomycin] 1 gm Vancomycin Inj 250 mg Sodium Chloride 0.9% [Normal Saline 0.9%] 250 ml IV Q12H 11/22/19 08:51 Ankle Brachial Index [US] Routine 11/22/19 09:00 Enoxaparin [Lovenox] 40 mg SUBQ DAILY Nicotine 7 mg Patch [Nicoderm] 1 patch TOP DAILY cefTRIAXone [Rocephin] 2 gm Sodium Chloride 0.9% Minibag [Normal Saline 0.9% Minibag] 100 ml IV DAILY 11/23/19 05:00 BMP - BASIC METABOLIC PANEL [CHEM] DAILYLAB CBC - COMP BLD CT W/AUTO DIFF [HEME] DAILYLAB 11/24/19 05:00 BMP - BASIC METABOLIC PANEL [CHEM] DAILYLAB CBC - COMP BLD CT W/AUTO DIFF [HEME] DAILYLAB Subjective - Subjective Patient Reports: Resting Comfortably, Pain (Unchanged pain in the right lower extremity, tender to touch.) Objective Vital Signs: Vital Signs - 24 hr 11/21/19 11/21/19 11/21/19 13:42 15:55 16:52 Temperature 37 C 36.9 C Heart Rate 92 90 Heart Rate [ 82 Brachial] Respiratory 16 16 16 Rate Blood Pressure 190/102 H 180/100 H Blood Pressure 177/104 H [Right Brachial artery] O2 Saturation 100 100 11/21/19 11/21/19 11/21/19 18:02 18:09 18:20 Temperature 36.9 C Heart Rate 89 Heart Rate [ Brachial] Respiratory 16 Rate Blood Pressure 177/104 H Blood Pressure 198/105 H [Right Brachial artery] O2 Saturation 99 11/21/19 11/21/19 11/22/19 18:23 18:35 00:00 Temperature 36.7 C Heart Rate Heart Rate [ 76 66 Brachial] Respiratory Rate Blood Pressure Blood Pressure 197/99 H 184/108 H 143/64 H [Right Brachial artery] O2 Saturation 95 11/22/19 08:00 Temperature 36.5 C Heart Rate Heart Rate [ 65 Brachial] Respiratory 18 Rate Blood Pressure Blood Pressure 162/72 H [Right Brachial artery] O2 Saturation 100 Oxygen O2 Source Room air I&O (Last 24 Hrs): Intake and Output Totals x24h 11/20/19 11/21/19 11/22/19 23:59 23:59 23:59 Intake Total 1169.167 881.667 Balance 1169.167 881.667 General: Alert, Oriented x3 HEENT: Mucous membr. moist/pink Neck: Supple Neuro: Alert, Non Focal Cardiovascular: Regular rate Respiratory: No respiratory distress Abdomen: Soft Extremities: Other (Right lower extremity red, less swollen, unchanged ten derness, unchanged dry ulcer of the posterior thigh with eschar and smaller also over the right lateral thigh) - Results Results: Laboratory Results WBC 3.1 x10^3/uL (4.8-10.8) L 11/22/19 05:51 RBC 3.95 10^6/uL (4.20-5.40) L 11/22/19 05:51 Hgb 12.7 g/dL (12.0-16.0) 11/22/19 05:51 Hct 37.7 % (37.0-47.0) 11/22/19 05:51 MCV 95.4 fL (81.0-99.0) 11/22/19 05:51 MCH 32.2 pg (27.0-31.0) H 11/22/19 05:51 MCHC 33.7 g/dL (32.0-36.0) 11/22/19 05:51 RDW 12.5 % (12.0-15.0) 11/22/19 05:51 Plt Count 183 10^3/uL (130-450) 11/22/19 05:51 MPV 9.7 fL (7.9-10.8) 11/22/19 05:51 Neut # (Auto) 1.5 10^3/uL (1.5-6.6) 11/22/19 05:51 Lymph # (Auto) 1.0 10^3/uL (1.5-3.5) L 11/22/19 05:51 Lassen # (Auto) 0.5 10^3/uL (0.0-1.0) 11/22/19 05:51 Eos # (Auto) 0.1 10^3/uL (0.0-0.7) 11/22/19 05:51 Baso # (Auto) 0.0 10^3/uL (0.0-0.1) 11/22/19 05:51 Absolute Nucleated RBC 0.00 x10^3/uL 11/22/19 05:51 Nucleated RBC % 0.0 /100WBC 11/22/19 05:51 PT 12.0 secs (9.9-12.6) 11/21/19 14:52 INR 1.1 (0.8-1.2) 11/21/19 14:52 Sodium 136 mmol/L (135-145) 11/22/19 05:51 Potassium 3.6 mmol/L (3.5-5.0) 11/22/19 05:51 Chloride 105 mmol/L (101-111) 11/22/19 05:51 Carbon Dioxide 22 mmol/L (21-32) 11/22/19 05:51 Anion Gap 9.0 (6-13) 11/22/19 05:51 BUN < 5 mg/dL (6-20) L 11/22/19 05:51 Creatinine 0.4 mg/dL (0.4-1.0) 11/22/19 05:51 Estimated GFR (MDRD) 159 (>89) 11/22/19 05:51 Glucose 76 mg/dL (70-100) 11/22/19 05:51 Lactic Acid 1.0 mmol/L (0.5-2.2) 11/21/19 14:52 Calcium 8.6 mg/dL (8.5-10.3) 11/22/19 05:51 Total Bilirubin 0.6 mg/dL (0.2-1.0) 11/21/19 14:52 AST 28 IU/L (10-42) 11/21/19 14:52 ALT 24 IU/L (10-60) 11/21/19 14:52 Alkaline Phosphatase 74 IU/L (42-121) 11/21/19 14:52 C-Reactive Protein 1.2 mg/dL (0-1.0) H 11/21/19 14:52 Total Protein 8.6 g/dL (6.7-8.2) H 11/21/19 14:52 Albumin 4.2 g/dL (3.2-5.5) 11/21/19 14:52 Globulin 4.4 g/dL (2.1-4.2) H 11/21/19 14:52 Albumin/Globulin Ratio 1.0 (1.0-2.2) 11/21/19 14:52 Lipase 41 U/L (22-51) 11/21/19 14:52
[2019-11-22] MEDS: LACTOBACILLUS RHAMNOSUS GG CAPSULE PO SCH (12:17)
[2019-11-22] MEDS: MULTIVITAMIN W/MINERALS TABLET PO SCH (12:17)
[2019-11-22] MEDS ORDERED: levoFLOXacin 750 MG/150 ML 750 MG/150 ML BAG IV SCH (16:00)
--- NOTE | 2019-11-22 16:24 | Ultrasound Report ---
PROCEDURE: Ankle Brachial Index INDICATIONS: poorly healing R leg infection TECHNIQUE: Ankle-brachial indices were obtained bilaterally and recorded. COMPARISONS: None. FINDINGS: Right ankle brachial index (FREDIS): 0.9 Left ankle brachial index (FREDIS): 1.0 Healing potential: Ankle pressures >55 mm Hg in non-diabetics and >80 mm Hg in diabetics are likely to achieve primary h ealing of ischemic foot ulcers. Toe pressures >30 mm Hg are likely to achieve primary healing of ischemic foot ulcers, toe or transme tatarsal amputations. IMPRESSION: 1. FREDIS suggesting mild right peripheral vascular disease. 2. Monophasic waveforms within the right posterior tibial and anterior tibial arteries suggesting art erial stenosis within the superior aspect of the right lower extremity. If further characterization i s warranted, and to plan for possible therapeutic intervention such as angioplasty, CTA with bilatera l lower extremity runoff is recommended. Reviewed by: Sheron Lomax MD on 11/22/2019 4:23 PM PDT Approved by: Sheron Lomax MD on 11/22/2019 4:23 PM PDT Station ID: [id number]
--- NOTE | 2019-11-22 17:38 | HISTORY & PHYSICAL EXAMINATION ---
Chief Complaint - Chief Complaint Chief Complaint: swelling and redness right leg History of Present Illness - History Obtained From Records Reviewed: yes History obtained from: patient Exam Limitations: none - History of Present Illness HPI Comment/Other: 69 year old lady with chronic venous stasis bilateral legs worse on the right. 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 She recently developed progressive redness right leg and swelling. She currently is much improved. She has had a couple scabs or eschars on her lower posterior right calf. She states she has not had redness and swelling like this in the past. History - Past Medical History Cardiovascular: reports: Hypertension, High cholesterol Respiratory: reports: None Neuro: reports: None Endocrine/Autoimmune: reports: HyPOthyroidism GI: reports: None COPPER TAPPER: reports: None : reports: None HEENT: reports: None Psych: reports: None Musculoskeletal: reports: Rheumatoid arthritis, Other Derm: reports: None MRSA Hx?: No Other Past Medical History: right eye nearly blind, carpel tunnel right wrist - Past Surgical History /COPPER TAPPER: reports: Hysterectomy Meds/Allgy - Home Medications Home Medications: Ambulatory Orders Medication Instructions Recorded Confirmed No Known Home Medications 11/21/19 11/21/19 - Allergies Allergies/Adverse Reactions: Allergies Allergy/AdvReac Type Severity Reaction Status Date / Time hydrochlorothiazide Allergy Anaphylaxis Verified 11/21/19 13:55 hydroxychloroquine Allergy Anaphylaxis Verified 11/21/19 13:55 ibuprofen AdvReac Nausea Verified 11/21/19 13:55 Exam - Vital Signs Reviewed Vital Signs: Yes Vital Signs: Vital Signs x48h Pulse BP 11/22/19 16:50 70 162/73 H - Physical Exam General Appearance: positive: No acute distress, Alert Eyes Bilateral: positive: Normal inspection, PERRL, EOMI ENT: positive: No signs of dehydration Neck: positive: No JVD Respiratory: positive: No respiratory distress Abdomen: positive: No distention Extremities: positive: Other (bilateral chronic venous stasis change. No significant swelling at this time redness/ cellulitis lower right calf. mid pos terior calft nearly 4 cm eschar, dry without flutuance lower lateral right calf nearly 2 cm eschar) Conclusion/Plan - Problem List (1) Cellulitis of right leg Conclusion/Plan: she has chronic venous change with shallow ulcer and cellulitis. Agree with care and plan follow up surgery office after discharge or wound clinic after the infection is improved she will likely need life long pressure stockings when up She may shower and get the eschars wet. I wound not place ointments on it at this time I also do not recommend debridement at this time - Lab Results Fish Bones: 11/22/19 05:51 11/22/19 05:51 - Diagnostic Imaging Results Diagnostic Imaging Results: positive: Final report reviewed (no abscess or deep infection), Read independently
[2019-11-23] MEDS: ACETAMINOPHEN 325 MG TABLET PO PRN ×2 (00:42→09:11)
[2019-11-23] MEDS: SODIUM CHLORIDE 0.9% 1,000 ML IV SCH (00:42)
[2019-11-23] MEDS: SODIUM CHLORIDE FLUSH 0.9% 10 ML SYRINGE IVP SCH ×4 (00:42→23:43)
[2019-11-23] MEDS: diphenhydrAMINE INJ 50 MG/ML VIAL IVP PRN ×2 (00:43→09:13)
[2019-11-23 04:38] LABS: CALCIUM 8.4 mg/dL (8.5-10.3); CREATININE 0.4 mg/dL (0.4-1.0); VANCOMYCIN,TROUGH 10.6 ug/mL (10.0-20.0)
[2019-11-23] MEDS: VANCOMYCIN INJ 1 GM, VANCOMYCIN INJ 250 MG in SODIUM CHLORIDE 0.9% 250 ML IV SCH (05:21)
[2019-11-23 05:38] LABS: BASOPHILS % (AUTO) 1.3 %; EOSINOPHILS # (AUTO) 0.1 10^3/uL (0.0-0.7); EOSINOPHILS % (AUTO) 1.9 %; HGB - HEMOGLOBIN 12.1 g/dL (12.0-16.0); LYMPHOCYTES # (AUTO) 1.1 10^3/uL (1.5-3.5); LYMPHOCYTES % (AUTO) 35.3 %; MEAN CORPUSCULAR HEMOGLOBIN 31.3 pg (27.0-31.0); MEAN CORPUSCULAR HGB CONC 33.1 g/dL (32.0-36.0); MEAN CORPUSCULAR VOLUME 94.8 fL (81.0-99.0); MONOCYTES # (AUTO) 0.4 10^3/uL (0.0-1.0); MONOCYTES % (AUTO) 13.1 %; NEUTROPHILS # (AUTO) 1.5 10^3/uL (1.5-6.6); NEUTROPHILS % (AUTO) 48.1 %; PLT - PLATELET COUNT 210 10^3/uL (130-450); RED BLOOD COUNT 3.86 10^6/uL (4.20-5.40); RED CELL DISTRIBUTION WIDTH 12.5 % (12.0-15.0); WHITE BLOOD COUNT 3.2 x10^3/uL (4.8-10.8)
[2019-11-23] MEDS: MULTIVITAMIN W/MINERALS TABLET PO SCH (08:59)
[2019-11-23] MEDS: LACTOBACILLUS RHAMNOSUS GG CAPSULE PO SCH (09:00)
[2019-11-23] MEDS: cefTRIAXone 2 GM in SODIUM CHLORIDE 0.9% MINIBAG 100 ML IV SCH (09:00)
[2019-11-23] MEDS: FAMOTIDINE 20 MG TABLET PO SCH (09:00)
[2019-11-23] MEDS: ENOXAPARIN 40 MG/0.4 ML SYRINGE SUBQ SCH (09:00)
[2019-11-23] MEDS: NICOTINE 7 MG PATCH TOP SCH (09:00)
--- NOTE | 2019-11-23 09:06 | PROVIDER PROGRESS NOTE ---
Subjective - Prog Note Date Prog Note Date: 11/23/19 - Subjective Subjective: She reports the edema in her right lower extremity has significantly improved. There is also less erythema. Reports her pain is well controlled. Current Medications - Current Medications Current Medications: Active Medications Acetaminophen (Tylenol) 650 mg PO Q4HR PRN PRN Reason: Pain 1 to 4 Last Admin: 11/23/19 00:42 Dose: 650 mg Documented by: Clonidine HCl ([id number]) 1 patch TOP Q7D [facility] Last Admin: 11/21/19 18:42 Dose: 1 patch Documented by: Diphenhydramine HCl (Benadryl Inj) 25 mg IVP Q6H PRN PRN Reason: Allergy Symptoms Last Admin: 11/23/19 00:43 Dose: 25 mg Documented by: Enoxaparin Sodium (Lovenox) 40 mg SUBQ DAILY [facility] Last Admin: 11/23/19 09:00 Dose: Not Given Documented by: Lactobacillus Rhamnosus (Culturelle) 1 cap PO DAILY [facility] Last Admin: 11/23/19 09:00 Dose: 1 cap Documented by: Multivitamins/Minerals (Theragran M) 1 tab PO DAILYWM [facility] Last Admin: 11/23/19 08:59 Dose: 1 tab Documented by: Nicotine (Nicoderm) 1 patch TOP DAILY [facility] Last Admin: 11/23/19 09:00 Dose: Not Given Documented by: Ondansetron HCl (Zofran Inj) 4 mg IVP Q6HR PRN PRN Reason: Nausea / Vomiting Oxycodone HCl (Roxicodone) 10 mg PO Q4HR PRN PRN Reason: Pain 8 to 10 Sodium Chloride (Normal Saline Flush 0.9%) 10 ml IVP PRN PRN PRN Reason: NEEDED PER PROVIDER ORDERS Sodium Chloride (Normal Saline Flush 0.9%) 10 ml IVP 0100,0900,1700 [facility] Last Admin: 11/23/19 09:00 Dose: Not Given Documented by: Trimethoprim/Sulfamethoxazole (Bactrim Ds 800/160) 1 tab PO BID [facility] No Known Home Medications 11/21/19 Objective - Vital Signs/Intake & Output Reviewed Vital Signs: Yes Intake & Output: Intake & Output 10/06/20 10/07/20 10/08/20 10/09/20 23:59 23:59 23:59 23:59 Intake Total 2682.109 3208.167 1020 Balance 2333.118 4586.167 1020 - Objective General Appearance: positive: No acute distress, Alert Eyes Bilateral: positive: Normal inspection, Conjunctivae nml ENT: positive: ENT inspection nml Neck: positive: Nml inspection Respiratory: positive: No respiratory distress. negative: Wheezes, Rales Cardiovascular: positive: Regular rate & rhythm, No murmur. negative: Tachycar kathe Abdomen: positive: Non-tender, No distention. negative: Tenderness, Guarding, Rebound Skin: positive: Warm, Dry, Other (He still has mild erythema in the right lower extremity over the lateral aspect of the calf. This has improved compared to t he outline that was marked yesterday. No tenderness. Still mild edema. There is an ulceration of the posterior aspect of the leg with the knee with eschar noted.) Extremities: positive: Pedal edema (Has about trace to +1 pitting edema in her right lower extremity.) Neurologic/Psychiatric: positive: Oriented x3 - Lab Results Fish Bones: 11/23/19 04:20 11/23/19 04:20 Other Labs: Lab Results x24hrs 11/23/19 11/23/19 11/23/19 Range/Units 04:20 04:20 04:20 WBC (4.8-10.8) x10^3/uL RBC (4.20-5.40) 10^6/uL Hgb (12.0-16.0) g/dL Hct (37.0-47.0) % MCV (81.0-99.0) fL MCH (27.0-31.0) pg MCHC (32.0-36.0) g/dL RDW (12.0-15.0) % Plt Count (130-450) 10^3/uL MPV (7.9-10.8) fL Neut # (Auto) (1.5-6.6) 10^3/uL Lymph # (Auto) (1.5-3.5) 10^3/uL Labette # (Auto) (0.0-1.0) 10^3/uL Eos # (Auto) (0.0-0.7) 10^3/uL Baso # (Auto) (0.0-0.1) 10^3/uL Absolute Nucleated RBC x10^3/uL Nucleated RBC % /100WBC Sodium 135 (135-145) mmol/L Potassium 3.8 (3.5-5.0) mmol/L Chloride 105 (101-111) mmol/L Carbon Dioxide 22 (21-32) mmol/L Anion Gap 8.0 (6-13) BUN 6 (6-20) mg/dL Creatinine 0.4 (0.4-1.0) mg/dL Estimated GFR (MDRD) 159 (>89) Glucose 111 H (70-100) mg/dL Calcium 8.4 L (8.5-10.3) mg/dL C-Reactive Protein < 1.0 (0-1.0) mg/dL Nasal Screen MRSA (PCR) (NEGATIVE) Last Dose Date UNKNOWN Last Dose Time UNKNOWN Vancomycin Trough 10.6 (10.0-20.0) ug/mL 11/23/19 11/22/19 Range/Units 04:20 10:40 WBC 3.2 L (4.8-10.8) x10^3/uL RBC 3.86 L (4.20-5.40) 10^6/uL Hgb 12.1 (12.0-16.0) g/dL Hct 36.6 L (37.0-47.0) % MCV 94.8 (81.0-99.0) fL MCH 31.3 H (27.0-31.0) pg MCHC 33.1 (32.0-36.0) g/dL RDW 12.5 (12.0-15.0) % Plt Count 210 (130-450) 10^3/uL MPV 10.0 (7.9-10.8) fL Neut # (Auto) 1.5 (1.5-6.6) 10^3/uL Lymph # (Auto) 1.1 L (1.5-3.5) 10^3/uL Labette # (Auto) 0.4 (0.0-1.0) 10^3/uL Eos # (Auto) 0.1 (0.0-0.7) 10^3/uL Baso # (Auto) 0.0 (0.0-0.1) 10^3/uL Absolute Nucleated RBC 0.00 x10^3/uL Nucleated RBC % 0.0 /100WBC Sodium (135-145) mmol/L Potassium (3.5-5.0) mmol/L Chloride (101-111) mmol/L Carbon Dioxide (21-32) mmol/L Anion Gap (6-13) BUN (6-20) mg/dL Creatinine (0.4-1.0) mg/dL Estimated GFR (MDRD) (>89) Glucose (70-100) mg/dL Calcium (8.5-10.3) mg/dL C-Reactive Protein (0-1.0) mg/dL Nasal Screen MRSA (PCR) NEGATIVE (NEGATIVE) Last Dose Date Last Dose Time Vancomycin Trough (10.0-20.0) ug/mL ABX Reporting Has patient been on IV antibiotics over the past 48 hours?: Yes Assessment/Plan - Problem List (1) Cellulitis of right leg Impression: This continues to improve. Her CRP is less than 1. The erythema and edema are also improving. Wound culture is growing Klebsiella and staph. We will switch her to oral Bactrim today and as long as she continues to clinically improve, we will look to discharge her tomorrow on oral Bactrim to complete her treatment. (2) Leg ulcer Impression: This appears to be secondary to an insect bite. Will she has a history rheumatoid arthritis, given the associated cellulitis, there is low suspicion for pyoderma gangrenosum at this time. Place a wound care consult and she can continue to follow-up with general surgery and wound care on outpatient basis. Qualifiers: Laterality: right Non-pressure ulcer stage: with fat layer exposed Qualified Code(s): L97.912 - Non-pressure chronic ulcer of unspecified part of right lower leg with fat layer exposed (3) Leukopenia Impression: This is likely secondary to her rheumatoid arthritis. Continue to monitor on outpatient basis once discharged. (4) Rheumatoid arthritis Impression: Stable. She is currently not on any therapy. Continue with Tylenol as needed. Discussed the importance of outpatient follow-up and she stated she could not travel to [place] but I encouraged her to follow-up with a family therapist in the [place] area. (5) Hypertension Impression: Blood pressure has been better controlled but still remains elevated. We will start her on oral amlodipine 5 mg daily. Discontinue clonidine patch. Qualifiers: Hypertension type: essential hypertension Qualified Code(s): I10 - Essential (primary) hypertension
[2019-11-23] MEDS: SULFAMETH/TRIMETH DS 800/160 MG TABLET PO SCH ×2 (11:07→20:52)
[2019-11-23] MEDS ORDERED: MIN OIL/DIMETHICON/COCONUT OIL 92 GM TUBE TOP PRN (16:12)
[2019-11-23] MEDS ORDERED: BACITRACIN ZINC OINT 1 PACKET TOP PRN (16:12)
--- NOTE | 2019-11-23 17:26 | PROVIDER PROGRESS NOTE ---
Subjective - Prog Note Date Prog Note Date: 11/23/19 - Subjective Pt reports feeling: Improved Objective - Vital Signs/Intake & Output Vital Signs: Vital Signs x48h Temp Pulse Resp BP Pulse Ox 11/23/19 16:00 36.7 C 62 18 132/99 H 100 Intake & Output: Intake & Output 11/20/19 11/21/19 11/22/19 11/23/19 23:59 23:59 23:59 23:59 Intake Total 9166.021 4270.167 2581 Balance 2827.241 8782.167 2581 - Objective General Appearance: positive: No acute distress, Alert Eyes Bilateral: positive: Normal inspection Neck: positive: No JVD, Trachea midline Respiratory: positive: No respiratory distress Extremities: positive: Non-tender, Other (cellulitis markedly improved no edema) - Lab Results Fish Bones: 11/23/19 04:20 11/23/19 04:20 Other Labs: Lab Results x24hrs 11/23/19 11/23/19 11/23/19 Range/Units 04:20 04:20 04:20 WBC (4.8-10.8) x10^3/uL RBC (4.20-5.40) 10^6/uL Hgb (12.0-16.0) g/dL Hct (37.0-47.0) % MCV (81.0-99.0) fL MCH (27.0-31.0) pg MCHC (32.0-36.0) g/dL RDW (12.0-15.0) % Plt Count (130-450) 10^3/uL MPV (7.9-10.8) fL Neut # (Auto) (1.5-6.6) 10^3/uL Lymph # (Auto) (1.5-3.5) 10^3/uL [place] # (Auto) (0.0-1.0) 10^3/uL Eos # (Auto) (0.0-0.7) 10^3/uL Baso # (Auto) (0.0-0.1) 10^3/uL Absolute Nucleated RBC x10^3/uL Nucleated RBC % /100WBC Sodium 135 (135-145) mmol/L Potassium 3.8 (3.5-5.0) mmol/L Chloride 105 (101-111) mmol/L Carbon Dioxide 22 (21-32) mmol/L Anion Gap 8.0 (6-13) BUN 6 (6-20) mg/dL Creatinine 0.4 (0.4-1.0) mg/dL Estimated GFR (MDRD) 159 (>89) Glucose 111 H (70-100) mg/dL Calcium 8.4 L (8.5-10.3) mg/dL C-Reactive Protein < 1.0 (0-1.0) mg/dL Last Dose Date UNKNOWN Last Dose Time UNKNOWN Vancomycin Trough 10.6 (10.0-20.0) ug/mL 11/23/19 Range/Units 04:20 WBC 3.2 L (4.8-10.8) x10^3/uL RBC 3.86 L (4.20-5.40) 10^6/uL Hgb 12.1 (12.0-16.0) g/dL Hct 36.6 L (37.0-47.0) % MCV 94.8 (81.0-99.0) fL MCH 31.3 H (27.0-31.0) pg MCHC 33.1 (32.0-36.0) g/dL RDW 12.5 (12.0-15.0) % Plt Count 210 (130-450) 10^3/uL MPV 10.0 (7.9-10.8) fL Neut # (Auto) 1.5 (1.5-6.6) 10^3/uL Lymph # (Auto) 1.1 L (1.5-3.5) 10^3/uL [place] # (Auto) 0.4 (0.0-1.0) 10^3/uL Eos # (Auto) 0.1 (0.0-0.7) 10^3/uL Baso # (Auto) 0.0 (0.0-0.1) 10^3/uL Absolute Nucleated RBC 0.00 x10^3/uL Nucleated RBC % 0.0 /100WBC Sodium (135-145) mmol/L Potassium (3.5-5.0) mmol/L Chloride (101-111) mmol/L Carbon Dioxide (21-32) mmol/L Anion Gap (6-13) BUN (6-20) mg/dL Creatinine (0.4-1.0) mg/dL Estimated GFR (MDRD) (>89) Glucose (70-100) mg/dL Calcium (8.5-10.3) mg/dL C-Reactive Protein (0-1.0) mg/dL Last Dose Date Last Dose Time Vancomycin Trough (10.0-20.0) ug/mL Assessment/Plan - Problem List (1) Cellulitis of right leg Impression: She is much improved. When she goes home she will need dressing care She may shower and get the area wet I recommend dry gauze over the wound followed by paty wrap on discharge She should change this daily Follow up in the surgery office [phone] or wound clinic The wound clinic would be able to offer much more sophisticated dressings
[2019-11-23] MEDS ORDERED: SULFAMETH/TRIMETH DS 800/160 MG TABLET PO SCH (21:00)
[2019-11-24] MEDS: ACETAMINOPHEN 325 MG TABLET PO PRN ×2 (03:21→08:42)
[2019-11-24 05:47] LABS: BASOPHILS # (AUTO) 0.1 10^3/uL (0.0-0.1); BASOPHILS % (AUTO) 1.5 %; EOSINOPHILS # (AUTO) 0.1 10^3/uL (0.0-0.7); EOSINOPHILS % (AUTO) 1.8 %; HGB - HEMOGLOBIN 13.2 g/dL (12.0-16.0); LYMPHOCYTES # (AUTO) 1.1 10^3/uL (1.5-3.5); LYMPHOCYTES % (AUTO) 31.4 %; MEAN CORPUSCULAR HEMOGLOBIN 31.7 pg (27.0-31.0); MEAN CORPUSCULAR HGB CONC 33.4 g/dL (32.0-36.0); MEAN CORPUSCULAR VOLUME 94.7 fL (81.0-99.0); MEAN PLATELET VOLUME 9.9 fL (7.9-10.8); MONOCYTES # (AUTO) 0.4 10^3/uL (0.0-1.0); MONOCYTES % (AUTO) 12.6 %; NEUTROPHILS # (AUTO) 1.8 10^3/uL (1.5-6.6); NEUTROPHILS % (AUTO) 52.4 %; PLT - PLATELET COUNT 221 10^3/uL (130-450); RED BLOOD COUNT 4.17 10^6/uL (4.20-5.40); RED CELL DISTRIBUTION WIDTH 12.4 % (12.0-15.0); WHITE BLOOD COUNT 3.3 x10^3/uL (4.8-10.8)
[2019-11-24 06:08] LABS: CALCIUM 8.9 mg/dL (8.5-10.3); CREATININE 0.6 mg/dL (0.4-1.0)
--- NOTE | 2019-11-24 07:42 | Discharge Plan ---
Discharge Plan Problem Reviewed?: Yes Disposition: Home, Self Care Condition: Stable Prescriptions: Sulfamethox/Trimeth 800/160 [Bactrim Ds] 1 tab PO BID 10 Days #20 tablet Aspirin EC [Ecotrin] 81 mg PO DAILY #30 tablet amLODIPine [Norvasc] 5 mg PO DAILY #30 tablet Diet: Regular Activity Restrictions: Activity as Tolerated Shower Restrictions: No Driving Restrictions: No Instruction Topics: Sulfamethoxazole Trimethoprim SMX-TMP tablets, Amlodipine, Cellulitis Dc Health Concerns: You were admitted to the hospital because of a skin infection called cellulitis. You were treated with IV antibiotics with improvement in this infection. You were seen by the surgeon and it was felt that you did not need any debridement. They recommended following up on an outpatient basis with wound care. You have improved and are now stable for discharge home. Please take the antibiotics as prescribed. Your blood pressure was also elevated during this hospitalization. You were started on a new medication called amlodipine. Please take this once a day. An ultrasound of your right leg showed you may have tightening of your arteries in the leg. It is recommended that you take aspirin 81 mg daily. This will need to be monitored as if this persists, this can cause ulcers to not heal well. If this is the situation, you might need more detailed ultrasound and to potentially see a vascular surgeon. Plan of Treatment: Please take the antibiotic, Bactrim, as prescribed. This is a twice a day antibiotic. Given your significant infection that required hospitalization, we will treat you for 10 more days for total of 14 days of therapy. Take the blood pressure medication, amlodipine, as prescribed. This is a daily medication. Assessment: Patient expressed understanding of the treatment plan. Additional Instructions or Follow Up instructions: Please follow-up with your primary care provider in 1 week to ensure that your infection continues to improve and your blood pressure is stable. Please follow-up with the wound care clinic for the ulcer in the back of your leg. You were provided a list of primary care providers by social work. The surgeon states that you may shower and get the area wet. It is recommended that you place dry gauze over the wound and you may use an Gelacio wrap to keep this in place. This should be changed on a daily basis. You can follow-up with the surgeon as well and the office number is [phone]. Follow-Up Care: [facility] [place]/Ostomy No Smoking: If you smoke, Please STOP! Call for help.
--- NOTE | 2019-11-24 07:44 | DISCHARGE SUMMARY ---
"Discharge Summary Admit Date: 11/21/19 Discharge Date: 11/24/19 Discharging Provider: Royal Shanks Primary Care Provider: No PCP Code Status: Attempt Resuscitation Condition at Discharge: Stable Discharge Disposition: 01 Home, Self Care - DIAGNOSES Admission Diagnoses: Cellulitis Leg ulcer Leukopenia Hypertension Smoker Rheumatoid arthritis Discharge Diagnoses with Status of Each Condition: Cellulitis of right leg - improved. Leg ulcer - stable. Leukopenia - stable. Rheumatoid arthritis - stable. Hypertension - stable. Peripheral arterial disease - stable. - HPI History of Present Illness: Please refer to H&P of Dr. Greer. - CONSULTS | PROCEDURES Consultations: General Surgery Procedures: Right lower extremity CT with IV contrast on November 21 showed shallow ulceration involving posterior lateral right mid mid to lower calf region with extensive cellulitis of the right lower leg. No abscess. No evidence of underlying muscle or tendon involvement. Osteoarthritic changes throughout the visualized right lower extremity. No fracture dislocation. No CT evidence of osteomyelitis. Ankle brachial index was 0.9. Left ankle-brachial index was 1.0. FREDIS suggested mild right peripheral vascular disease. Monophasic waveforms in the right posterior tibial and anterior tibial artery suggesting arterial stenosis within the superior aspect of the right lower extremity. - HOSPITAL COURSE Hospital Course: She was admitted to the floor for cellulitis of the right leg and started on IV vancomycin and ceftriaxone. Wound cultures from the ER had previously grown enterococcus, Klebsiella and staph aureus. Repeat wound cultures grew Klebsiella and staph aureus. CT was consistent with cellulitis and no evidence of osteomyelitis. She was treated with IV antibiotics for 2 days and switch to oral Bactrim day. Her white count remained stable and her CRP continue to imp rove as well as her right lower extremity erythema. She was evaluated by general surgery and they felt no need for surgical debridement. They recommended outpatient follow-up with the wound care clinic or general surgery. She did well on Bactrim and so she was discharged on Bactrim twice daily for 10 more days to complete 14 days of therapy given she had previously failed outpatient treatment of the cellulitis. Patient was also started on amlodipine given her blood pressure has been elevated. She does not have a primary care provider but she was provided with a list and she will be contacting them to make an appointment. We also discussed the ABIs and concern for peripheral arterial disease. She is agreeable to taking aspirin 81 mg daily but did not want a statin as she has not done well with them in the past. I discussed the importance of smoking cessation and she is agreeable to this. She will see her primary care provider as I told her she may need arterial Dopplers in the future and possibly vascular surgery evaluation if her right leg ulcer does not heal over time. - ALLERGIES Allergies/Adverse Reactions: Allergies Allergy/AdvReac Type Severity Reaction Status Date / Time hydrochlorothiazide Allergy Anaphylaxis Verified 11/21/19 13:55 hydroxychloroquine Allergy Anaphylaxis Verified 11/21/19 13:55 ibuprofen AdvReac Nausea Verified 11/21/19 13:55 - MEDICATIONS Home Medications: Ambulatory Orders Medication Instructions Recorded Confirmed Aspirin EC [Ecotrin] 81 mg PO DAILY #30 tablet 11/24/19 Sulfamethox/Trimeth 800/160 1 tab PO BID 10 Days #20 tablet 11/24/19 [Bactrim Ds] amLODIPine [Norvasc] 5 mg PO DAILY #30 tablet 11/24/19 - PHYSICAL EXAM AT DISCHARGE General Appearance: positive: No acute distress, Alert Eyes Bilateral: positive: Conjunctivae nml ENT: positive: ENT inspection nml Neck: positive: Nml inspection Respiratory: positive: No respiratory distress. negative: Wheezes, Rales Cardiovascular: positive: Regular rate & rhythm, No murmur. negative: Tachycardia, Systolic murmur Abdomen: positive: Non-tender, No distention. negative: Tenderness, Guarding, Rebound Skin: positive: Warm, Dry, Other (The right lower extremity erythema has significantly improved. There is an ulcer over the posterior aspect of the right calf. No purulent discharge noted. There is no tenderness on exam.) Extremities: positive: Full ROM, Pedal edema (She still has about +1 pitting edema in the right lower extremity but this is improved.) Neurologic/Psychiatric: positive: Oriented x3, Motor nml. negative: Disoriented to person, Disoriented to place, Disoriented to time Physical Exam Other/Comments: Vital Signs - 24 hr 11/23/19 11/24/19 11/24/19 23:39 08:00 08:37 Temperature 36.7 C 36.5 C Heart Rate [ 78 68 68 Brachial] Respiratory 16 20 Rate Blood Pressure 140/78 H 132/69 H 134/71 H [Right Brachial artery] O2 Saturation 97 99 11/24/19 11:35 Temperature 36.7 C Heart Rate [ 86 Brachial] Respiratory 18 Rate Blood Pressure 126/76 [Right Brachial artery] O2 Saturation 98 Oxygen O2 Source Room air - LABS Result Diagrams: 11/24/19 05:20 11/24/19 05:20 Other Lab Results: Microbiology Results 11/21/19 15:41 Leg - Right Wound Culture - Final Staphylococcus Aureus Klebsiella Pneumoniae Laboratory Results 11/24/19 05:20: Sodium 133 L, Potassium 3.8, Chloride 104, Carbon Dioxide 21, Anion Gap 8.0, BUN 5 L, Creatinine 0.6, Estimated GFR (MDRD) 100, Glucose 136 H, Calcium 8.9 11/24/19 05:20: WBC 3.3 L, RBC 4.17 L, Hgb 13.2, Hct 39.5, MCV 94.7, MCH 31.7 H, MCHC 33.4, RDW 12.4, Plt Count 221, MPV 9.9, Neut # (Auto) 1.8, Lymph # (Auto) 1.1 L, [place] # (Auto) 0.4, Eos # (Auto) 0.1, Baso # (Auto) 0.1, Absolute Nucleated RBC 0.00, Nucleated RBC % 0.0 11/23/19 04:20: C-Reactive Protein < 1.0 11/23/19 04:20: Last Dose Date UNKNOWN, Last Dose Time UNKNOWN, Vancomycin Trough 10.6 11/23/19 04:20: Sodium 135, Potassium 3.8, Chloride 105, Carbon Dioxide 22, Anion Gap 8.0, BUN 6, Creatinine 0.4, Estimated GFR (MDRD) 159, Glucose 111 H, Calcium 8.4 L 11/23/19 04:20: WBC 3.2 L, RBC 3.86 L, Hgb 12.1, Hct 36.6 L, MCV 94.8, MCH 31.3 H, MCHC 33.1, RDW 12.5, Plt Count 210, MPV 10.0, Neut # (Auto) 1.5, Lymph # (Auto) 1.1 L, [place] # (Auto) 0.4, Eos # (Auto) 0.1, Baso # (Auto) 0.0, Absolute Nucleated RBC 0.00, Nucleated RBC % 0.0 - DIAGNOSTIC IMAGING Diagnostic Imaging Results: Final report reviewed - FOLLOW UP Follow Up: She was asked make an appointment with a primary care provider in 1 week for follow-up. She was also asked to follow-up with the wound care clinic and consider general surgery follow-up as well. - TIME SPENT Time Spent in Discharge (Minutes): 33"
[2019-11-24] MEDS: ENOXAPARIN 40 MG/0.4 ML SYRINGE SUBQ SCH (08:40)
[2019-11-24] MEDS: NICOTINE 7 MG PATCH TOP SCH (08:41)
[2019-11-24] MEDS: SULFAMETH/TRIMETH DS 800/160 MG TABLET PO SCH (08:42)
[2019-11-24] MEDS: MULTIVITAMIN W/MINERALS TABLET PO SCH (08:42)
[2019-11-24] MEDS: LACTOBACILLUS RHAMNOSUS GG CAPSULE PO SCH (08:42)
[2019-11-24] MEDS: SODIUM CHLORIDE FLUSH 0.9% 10 ML SYRINGE IVP SCH (08:42)
[2019-11-24] MEDS ORDERED: amLODIPine 5 MG TABLET PO SCH (09:00)
[2019-11-24] MEDS ORDERED: ASPIRIN EC 81 MG TABLET PO SCH (09:00)
[2019-11-24 11:35] VITALS: BP 126/76
== END 2019-11-24 11:27 | disposition home or self-care (01) | DRG 603 ==
LOC: ED 13:30 → MS2 15:52
PROVIDERS: ADMIT Internal Medicine; ATTEND Internal Medicine
DX: L03.115 Cellulitis of right lower limb (principal); L97.212 Non-pressure chronic ulcer of right calf with fat layer exposed; T63.301S Toxic effect of unspecified spider venom, accidental (unintentional), sequela; I10 Essential (primary) hypertension; M06.9 Rheumatoid arthritis, unspecified; F17.200 Nicotine dependence, unspecified, uncomplicated; E03.9 Hypothyroidism, unspecified; D72.819 Decreased white blood cell count, unspecified; I73.9 Peripheral vascular disease, unspecified; I87.8 Other specified disorders of veins; M85.861 Other specified disorders of bone density and structure, right lower leg; B96.1 Klebsiella pneumoniae [K. pneumoniae] as the cause of diseases classified elsewhere; A49.01 Methicillin susceptible Staphylococcus aureus infection, unspecified site; F17.210 Nicotine dependence, cigarettes, uncomplicated; H54.7 Unspecified visual loss
CPT/HCPCS: 36415; 73701; 80048; 80053; 80202; 83605; 83690; 85025; 85610; 86140; 87040; 87070; 87077; 87181; 87205; 87640; 93005; 93922; 96365; 99284; 99285; A9270; J1200; J3370; Q9967

== ENCOUNTER 2019-11-28 08:00 | Outpatient (CLI) | payer MEDICARE, OTHER ==
[2019-11-28 18:30] LABS: BASOPHILS % (AUTO) 1.1 %; EOSINOPHILS % (AUTO) 1.1 %; HGB - HEMOGLOBIN 13.7 g/dL (12.0-16.0); LYMPHOCYTES # (AUTO) 1.1 10^3/uL (1.5-3.5); LYMPHOCYTES % (AUTO) 29.3 %; MEAN CORPUSCULAR HGB CONC 31.9 g/dL (32.0-36.0); MEAN CORPUSCULAR VOLUME 97.3 fL (81.0-99.0); MEAN PLATELET VOLUME 10.4 fL (7.9-10.8); MONOCYTES # (AUTO) 0.3 10^3/uL (0.0-1.0); MONOCYTES % (AUTO) 7.9 %; NEUTROPHILS # (AUTO) 2.2 10^3/uL (1.5-6.6); NEUTROPHILS % (AUTO) 60.3 %; PLT - PLATELET COUNT 278 10^3/uL (130-450); RED BLOOD COUNT 4.42 10^6/uL (4.20-5.40); RED CELL DISTRIBUTION WIDTH 12.7 % (12.0-15.0); WHITE BLOOD COUNT 3.7 x10^3/uL (4.8-10.8)
[2019-11-28 18:48] LABS: ALBUMIN 3.8 g/dL (3.2-5.5); ALKALINE PHOSPHATASE 65 IU/L (42-121); ALT ALANINE AMINOTRANSFERASE 27 IU/L (10-60); AST ASPARTATE AMINOTRANSFERASE 31 IU/L (10-42); BILIRUBIN,TOTAL 0.5 mg/dL (0.2-1.0); BUN - BLOOD UREA NITROGEN 5 mg/dL (6-20); CALCIUM 9.2 mg/dL (8.5-10.3); CARBON DIOXIDE - CO2 25 mmol/L (21-32); CHLORIDE 101 mmol/L (101-111); CHOL/HDL RATIO 3.2 (<4.4); CHOLESTEROL 208 mg/dL; CREATININE 0.5 mg/dL (0.4-1.0); GLUCOSE 83 mg/dL (70-100); HDL CHOLESTEROL 66 mg/dL; LDL CHOLESTEROL,CALCULATED 120 mg/dL; LDL/HDL RATIO 1.8 (<4.4); SODIUM 135 mmol/L (135-145); TOTAL PROTEIN 7.7 g/dL (6.7-8.2); VLDL CHOLESTEROL 22 mg/dL
[2019-11-28 18:57] LABS: CRP - C-REACTIVE PROTEIN < 1.0 mg/dL (0-1.0)
== END 2019-11-28 08:01 | disposition home or self-care (01) ==
LOC: LAB.WCP 08:00
PROVIDERS: ATTEND Physician Assistant
DX: E78.5 Hyperlipidemia, unspecified (principal); M06.9 Rheumatoid arthritis, unspecified
CPT/HCPCS: 36415; 80053; 80061; 83721; 85025; 85651; 86038; 86140; 86200

== ENCOUNTER 2020-01-17 08:56 | Outpatient (CLI) | payer MEDICARE, OTHER ==
--- NOTE | 2020-01-17 15:03 | CT Report ---
PROCEDURE: Low Dose Lung Cancer Screen INDICATIONS: HISTORY OF SMOKING TECHNIQUE: Noncontrast low-dose 5 mm thick sections acquired from the pulmonary apices to the posterior costophr enic angles. 7 mm thick coronal and sagittal MIP reformats were then acquired. For radiation dose r eduction, the following was used: automated exposure control, adjustment of mA and/or kV according t o patient size. COMPARISON: None. FINDINGS: Image quality: Excellent. Lungs and pleura: No discrete pulmonary nodule is seen. Mild centrilobular emphysema is noted. Biapi reyes scarring is seen. There are small atelectasis seen scattered in periphery of bilateral lung field s. No acute airspace opacity. No pleural effusion or pneumothorax. Central and peripheral airway is p atent and normal in size. Mediastinum: Heart size is normal. No pericardial effusion. Borderline prominent mediastinal lymph nodes are seen measures up to 1 cm in precarinal space. No hilar lymphadenopathy by size criteria. Mo derate atherosclerotic calcifications are noted in coronary vessels and thoracic aorta.. Thoracic ao rta and central pulmonary arteries are normal in size. Esophagus is normal in caliber. No hiatal he rnia. Bones and chest wall: No suspicious bony lesions. No vertebral body compression fractures. No axil arnulfo or supraclavicular adenopathy by size criteria. The thyroid is normal in size. Abdomen: Visualized upper abdomen solid organs and bowel loops appear normal in the absence of contr ast. 5 mm nonobstructing stone in anterior cortex of mid pole right kidney is seen. IMPRESSION: 1. No discrete pulmonary nodule. 2. Mild centrilobular emphysema. Scattered scarring/atelectasis in bilateral lung roberson. 3. Nonspecific borderline enlarged mediastinal lymph nodes. 4. Moderate atherosclerotic disease. Lung RADS category: 1, negative. Low-dose lung screening CT in 12 months is recommended. Reviewed by: Phillip Regalado MD on 01/17/2020 3:02 PM PST Approved by: Phillip Regalado MD on 01/17/2020 3:02 PM PST Station ID: [id number]
== END 2020-01-17 08:57 | disposition home or self-care (01) ==
LOC: DI 08:56
PROVIDERS: ATTEND Physician Assistant
DX: Z12.2 Encounter for screening for malignant neoplasm of respiratory organs (principal); J43.2 Centrilobular emphysema; J98.11 Atelectasis; R59.0 Localized enlarged lymph nodes; I25.10 Atherosclerotic heart disease of native coronary artery without angina pectoris; I70.0 Atherosclerosis of aorta; Z87.891 Personal history of nicotine dependence

== ENCOUNTER 2020-02-19 12:09 | Outpatient (CLI) | payer MEDICARE, OTHER ==
--- NOTE | 2020-02-19 16:35 | Ultrasound Report ---
PROCEDURE: Duplex Lwr Ext Arterial Bilat INDICATIONS: RT LOWER LEG OPEN WOUND, PERIPHERAL ARTERY DISEASE TECHNIQUE: Color and pulse Doppler interrogation was performed of both lower extremity arterial systems, with im age documentation. COMPARISON: None FINDINGS: Right lower extremity: Common femoral artery: 132 cm/sec, with triphasic flow. Deep femoral artery: 123 cm/sec, with triphasic flow. Proximal superficial femoral artery: Occluded Mid superficial femoral artery: Occluded Distal superficial femoral artery: 29 cm/sec, with monophasic flow. Popliteal artery: 36 cm/sec, with monophasic flow. Posterior tibial artery: 39 cm/sec, with monophasic flow. Anterior tibial artery/dorsalis pedis: 54/26 cm/sec, with monophasic flow. Waddell-scale imaging description: Diffuse atherosclerotic disease is seen. Left lower extremity: Common femoral artery: 141 cm/sec, with biphasic flow. Deep femoral artery: 79 cm/sec, with biphasic flow. Proximal superficial femoral artery: 121 cm/sec, with triphasic flow. Mid superficial femoral artery: 129 cm/sec, with I phasic flow. Distal superficial femoral artery: 112 cm/sec, with biphasic flow. Popliteal artery: 48 cm/sec, with biphasic flow. Posterior tibial artery: 76 cm/sec, with biphasic flow. Anterior tibial artery/dorsalis pedis: 68/14 cm/sec, with biphasic flow. Waddell-scale imaging description: Diffuse atherosclerotic disease is seen. IMPRESSION: 1. Occlusion of the right SFA in the proximal and mid segment with distal reconstitution from collate rals. 2. No focal stenosis in the left lower extremity. Reviewed by: Lucio Cortez on 02/19/2020 4:34 PM PST Approved by: Lucio Cortez on 02/19/2020 4:34 PM PST Station ID: [id number]
== END 2020-02-19 12:10 | disposition home or self-care (01) ==
LOC: DI 12:09
PROVIDERS: ATTEND Internal Medicine Gastroenterology
DX: I77.1 Stricture of artery (principal)
CPT/HCPCS: 93925

== ENCOUNTER 2022-12-12 10:46 | Emergency (ER) | payer MEDICARE, OTHER ==
[2022-12-12] MEDS ORDERED: oxyCODONE 5 MG TABLET PO STA (11:09)
--- NOTE | 2022-12-12 11:11 | ED Physician Documentation ---
PD HPI MAJOR TRAUMA - Stated complaint Stated Complaint: FALL - Chief complaint Chief Complaint: Trauma Ch/Bk - History obtained from History obtained from: Patient - Additional information Additional information: 72-year-old woman with history of peripheral vascular disease and rheumatoid arthritis had a trip and fall last night. She was walking with her walker and got caught up in a garbage bag and went down onto her left side. She hit her head mildly and has a mild headache, but she thinks that is mostly from not sleeping well and no coffee this morning. The main site of pain is the left r ibs and the left foot. Also neck pain. PD PAST MEDICAL HISTORY - Past Medical History Cardiovascular: Hypertension, High cholesterol Respiratory: None Neuro: None Endocrine/Autoimmune: HyPOthyroidism GI: None CLINICAL BIOSTATISTICS DIRECTOR: None : None HEENT: None Psych: None Musculoskeletal: Rheumatoid arthritis, Other Derm: None - Past Surgical History Past Surgical History: Yes /CLINICAL BIOSTATISTICS DIRECTOR: Hysterectomy - Present Medications Home Medications: Ambulatory Orders Medication Instructions Recorded Confirmed Aspirin EC [Ecotrin] 81 mg PO DAILY #30 tablet 11/24/19 12/10/22 Acetaminophen [Tylenol Extra 1,000 mg PO TID 12/11/19 12/10/22 Strength] Multivitamin [Multiple Vitamins] 1 tab PO DAILY 12/11/19 12/10/22 Oxycodone HCl/Acetaminophen 1 - 2 each PO Q6H PRN #14 tablet 12/12/22 [Percocet 5-325 mg Tablet] - Allergies Allergies/Adverse Reactions: Allergies Allergy/AdvReac Type Severity Reaction Status Date / Time hydrochlorothiazide Allergy Anaphylaxis Verified 01/31/20 11:49 hydroxychloroquine Allergy Anaphylaxis Verified 01/31/20 11:49 ibuprofen AdvReac Nausea Verified 01/31/20 11:49 Optifoam Allergy Rash Uncoded 02/07/20 13:18 coban AdvReac Hives Uncoded 01/31/20 11:49 - Social History Does the pt smoke?: Yes Smoking Status: Current every day smoker Does the pt drink ETOH?: Yes Does the pt have substance abuse?: No - Immunizations Immunizations are current?: Yes PD ED PE NORMAL - Vitals Vital signs reviewed: Yes - General General: Alert and oriented X 3, Other (Thin to the point of cachexia, but not acutely ill.) - HEENT HEENT: PERRL, EOMI - Neck Neck: Supple, no meningeal sign, Other (Tender to the low C-spine) - Cardiac Cardiac: RRR, No murmur - Respiratory Respiratory: No respiratory distress, Other (Quite tender left lower posterior chest wall) - Abdomen Abdomen: Non tender - Back Back: No CVA TTP, No spinal TTP - Derm Derm: Normal color, Warm and dry - Extremities Extremities: Other (Left hip is nontender and painless internal and external rotation. She is quite tender to the distal fifth metatarsal of the left foot.) - Neuro Neuro: Alert and oriented X 3, Normal speech Results - Vitals Vitals: Vital Signs - 24 hr 12/12/22 12/12/22 11:05 13:09 Temperature 36.8 C Heart Rate 111 H 109 H Respiratory 18 18 Rate Blood Pressure 172/109 H 126/79 O2 Saturation 96 97 Oxygen O2 Source Room air - Rads (name of study) Three-view x-ray of the left foot is negative for fracture. Relevant Findings:: Final report received, EMP independent interpretation of test PD Medical Decision Making - ED course ED course: 72-year-old woman presents after a fall last night. There is a concern for hip injury but clinically there is not 1. Major site of pain was the neck, left chest wall, and left foot. Relevant imaging of all of those were negative except for chronic findings. She was feeling better after an oxycodone here. Departure - Departure Disposition: 01 Home, Self Care Clinical Impression: Contusion of chest wall Qualifiers: Encounter type: initial encounter Laterality: left Qualified Code(s): S20.212A - Contusion of left front wall of thorax, initial encounter Injury of left foot Qualifiers: Encounter type: initial encounter Qualified Code(s): S99.922A - Unspecified injury of left foot, initial encounter Neck sprain Qualifiers: Encounter type: initial encounter Qualified Code(s): S13.9XXA - Sprain of joints and ligaments of unspecified parts of neck, initial encounter Head injury Qualifiers: Encounter type: initial encounter Qualified Code(s): S09.90XA - Unspecified injury of head, initial encounter Condition: Stable Record reviewed to determine appropriate education?: Yes Instructions: ED Contusion Chest Wall Prescriptions: Oxycodone HCl/Acetaminophen [Percocet 5-325 mg Tablet] 1 - 2 each PO Q6H PRN #14 tablet PRN Reason: pain Comments: I sent your prescription electronically to [facility] in [place]. As discussed, there is no evidence of acute injury of the head, neck, chest, or foot and clinically her hip is okay as well. Rest. It is okay to walk and use ice or heat, whichever feels better. Follow-up with your doctor in about a week for recheck. Return for new or worsening symptoms. I am prescribing a short course of narcotic pain medication for you. These are potentially dangerous and addictive medications that should be used carefully. These medications may constipate you. Take an eutj-sxa-kyrwnjs stool softener (docusate) twice daily with plenty of water while taking these medications. If you go 24 hours without a bowel movement, take [id number] miralax, per package instructions. Do not drink or drive while taking these medications. If you received narcotic or sedating medications while in the emergency department, do not drive for 24 hours. Store this medication in a safe, secure place and out of reach of children. It is a violation of federal law to give or sell this medication to another person or to use in a manner other than prescribed. The ED will not refill narcotic prescriptions, including prescriptions lost or stolen. To dispose of unwanted medications: 1. [facility] provides a drop box for medication in pill form only (no liquids) 8:00 am to 4:30 p.m. Tuesday-Tuesday in the lobby of the [facility], [address] [place] [address]. Empty pills into ziplock bag before disposal. Call [phone] for information. 2.[employer] is a free service available to all [facility] residents. Go to [email or web address] Note that many narcotic pain relievers also contain Tylenol/acetaminophen. Please ensure that your total dose of acetaminophen from all sources does not exceed 3 g (3000 mg) per day. Forms: PCP List
--- NOTE | 2022-12-12 11:28 | XRAY Report ---
PROCEDURE: Foot 3 View LT INDICATIONS: foot inj TECHNIQUE: 3 views of the foot were acquired. COMPARISON: None. FINDINGS: Bones: No fractures or dislocations. No suspicious bony lesions. Osteopenia. Hallux valgus with m etatarsal bone callus plantar calcaneal enthesophyte. Hammertoe deformities of the second through fif th digits. Soft tissues: No suspicious soft tissue calcifications or masses. IMPRESSION: No acute bony abnormality. If pain persists with conservative management, consider repeat radiographs in 10-14 days or cross-sectional imaging. Reviewed by: Lux Dunham on 12/12/2022 11:26 AM PDT Approved by: Lux Dunham on 12/12/2022 11:26 AM [facility] Station ID: [id number]
[2022-12-12 13:36] VITALS: BP 126/79
--- NOTE | 2022-12-12 14:26 | CT Report ---
PROCEDURE: HEAD WO INDICATIONS: head inj TECHNIQUE: Noncontrast 4.5 mm thick angled axial sections acquired from the foramen magnum to the vertex. For r adiation dose reduction, the following was used: automated exposure control, adjustment of mA and/or kV according to patient size. COMPARISON: None. FINDINGS: Image quality: Excellent. CSF spaces: Basal cisterns are patent. No extra-axial fluid collections. Ventricles are normal in size and shape. Brain: Diffuse parenchymal volume loss with symmetric expansion of CSF containing spaces. Periventric ular white matter hypodensity suggestive of chronic microvascular ischemic disease. No midline shift. No intracranial masses or hemorrhage. Waddell-white matter interface is normal. Skull and face: Calvarium and visualized facial bones are intact, without suspicious lesions. Sinuses: Visualized sinuses and mastoids are clear. IMPRESSION: No acute intracranial pathology. Reviewed by: Josep Ragsdale MD on 12/12/2022 1:25 PM [facility] Approved by: Josep Ragsdale MD on 12/12/2022 1:25 PM [facility] Station ID: [id number]
--- NOTE | 2022-12-12 14:35 | CT Report ---
PROCEDURE: CHEST WO INDICATIONS: chest wall inj TECHNIQUE: Noncontrast 1mm axial images were acquired from the pulmonary apices to the posterior costophrenic an gles. Axial 5 mm soft tissue kernel reconstructions were performed as well as 8 mm axial MIP and cor onal and sagittal 5 mm reformations. For radiation dose reduction, the following was used: automate d exposure control, adjustment of mA and/or kV according to patient size. COMPARISON: None FINDINGS: Image quality: Excellent. Lungs and pleura: No concerning consolidation. Diffuse emphysematous changes throughout the lungs. No pleural effusions. No pneumothorax. No suspicious pulmonary nodules which require follow up. Mediastinum: Heart size is normal. No pericardial effusion. No large vessel abnormality. No mediastin al adenopathy by size criteria. Severe coronary artery disease. Chest wall and lower neck: Thyroid is unremarkable. No axillary or supraclavicular adenopathy by size . Bones: No aggressive osseous abnormality. Wedge deformity of T12 and L1, likely chronic in nature giv en the adjacent vacuum disc phenomenon. Sequela of healing anterior left fifth and sixth rib fracture s. Upper Abdomen: Unremarkable. IMPRESSION: No displaced acute rib fracture. Linear sclerosis of the anterior left fifth and sixth ribs suggesting healing remote fractures. Diffuse emphysematous changes in lungs. Chronic compression fracture of T12 and L1. Reviewed by: Josep Ragsdale MD on 12/12/2022 1:34 PM [facility] Approved by: Josep Ragsdale MD on 12/12/2022 1:34 PM [facility] Station ID: [id number]
--- NOTE | 2022-12-12 14:38 | CT Report ---
PROCEDURE: CERVICAL SPINE WO INDICATIONS: neck inj TECHNIQUE: Noncontrast 3 mm thick sections acquired from the skull base to the T4 level. Sagittal and coronal r eformats were then constructed. For radiation dose reduction, the following was used: automated exp osure control, adjustment of mA and/or kV according to patient size. COMPARISON: None. FINDINGS: Image quality: Excellent. Bones: No fractures or dislocations. Visualized superior ribs are intact. Moderate spondylitic master nges of the cervical spine. Multifocal facet arthrosis. Soft tissues: Prevertebral soft tissues are normal in thickness. No paravertebral hematomas. No ap ical pneumothoraces. Centrilobular emphysematous changes of the lungs IMPRESSION: No acute, displaced fracture or traumatic subluxation. Reviewed by: Josep Ragsdale MD on 12/12/2022 1:36 PM [facility] Approved by: Josep Ragsdale MD on 12/12/2022 1:36 PM [facility] Station ID: [id number]
[2022-12-12 14:55] VITALS: O2SAT 98
== END 2022-12-12 16:07 | disposition home or self-care (01) ==
LOC: EDBD → EDUNIT# → ED 10:46
DX: S09.90XA Unspecified injury of head, initial encounter (principal); S99.922A Unspecified injury of left foot, initial encounter; S13.9XXA Sprain of joints and ligaments of unspecified parts of neck, initial encounter; S20.212A Contusion of left front wall of thorax, initial encounter; W01.0XXA Fall on same level from slipping, tripping and stumbling without subsequent striking against object, initial encounter; Y93.01 Activity, walking, marching and hiking; I10 Essential (primary) hypertension; E78.00 Pure hypercholesterolemia, unspecified; E03.9 Hypothyroidism, unspecified; F17.200 Nicotine dependence, unspecified, uncomplicated; Z79.899 Other long term (current) drug therapy; Z79.82 Long term (current) use of aspirin
CPT/HCPCS: 70450; 71250; 72125; 73630; 99284; A9270

== ENCOUNTER 2023-02-27 10:21 | Inpatient (IN) | payer MEDICARE, OTHER ==
[2023-02-27] MEDS ORDERED: SODIUM CHLORIDE 0.9% 1,000 ML IV STA ×2 (10:51→12:03)
[2023-02-27] MEDS ORDERED: KETOROLAC 15 MG/ML VIAL IVP STA (10:54)
--- NOTE | 2023-02-27 10:58 | ED Physician Documentation ---
PD HPI BACK PAIN - Stated complaint Stated Complaint: BACK PX - Chief complaint Chief Complaint: Back Pain - History obtained from History obtained from: Patient, EMS - History of Present Illness Timing - onset: How many days ago (4) Timing - duration: Days (4) Timing - details: Gradual onset, Still present Location: Upper, Mid Quality: Pain, Spasm, Sharp, Similar to prior episodes Associated symptoms: Weakness, Incontinent of urine (similar to always). No: Fever, Numbness, Unable to urinate, Hematuria, Incontinent of stool Improves with: Rest Worsened by: Movement Similar symptoms before: Diagnosis (lumbar arthritis) Recently seen: Not recently seen - Additional information Additional information: Jonathan ortega is a 72-year-old female who lives alone and has a history of chronic back pain. Over the past 4 days she has noted an increase in her back pain that is severe and has limited her ability to get out of bed to get to water. She acknowledges a cough that is wet sounding and this is progressed as well. Review of Systems Constitutional: denies: Fever Eyes: denies: Decreased vision Ears: denies: Ear pain Nose: reports: Congestion. denies: Rhinorrhea / runny nose Throat: denies: Sore throat Cardiac: denies: Chest pain / pressure, Palpitations, Pedal edema, Calf pain Respiratory: reports: Dyspnea, Cough GI: denies: Abdominal Pain, Nausea, Vomiting, Constipation, Diarrhea : reports: Incontinent. denies: Dysuria, Frequency Skin: denies: Rash Musculoskeletal: reports: Back pain. denies: Neck pain, Extremity pain PD PAST MEDICAL HISTORY - Past Medical History Past Medical History: Yes Cardiovascular: Hypertension, High cholesterol Respiratory: None Neuro: None Endocrine/Autoimmune: HyPOthyroidism GI: None SOFTWARE CONSULTANT: None : None HEENT: None Psych: None Musculoskeletal: Rheumatoid arthritis, Other Derm: None - Past Surgical History Past Surgical History: Yes /SOFTWARE CONSULTANT: Hysterectomy - Present Medications Home Medications: Ambulatory Orders Medication Instructions Recorded Confirmed Amlodipine Besylate [Norvasc] 10 mg PO DAILY 12/27/22 12/27/[address] [Voltaren] 75 mg PO BID 12/27/22 12/27/22 sulfaSALAzine [Sulfasalazine] 750 mg PO BID 12/27/22 12/27/22 - Allergies Allergies/Adverse Reactions: Allergies Allergy/AdvReac Type Severity Reaction Status Date / Time hydrochlorothiazide Allergy Anaphylaxis Verified 02/27/23 11:03 hydroxychloroquine Allergy Anaphylaxis Verified 02/27/23 11:03 ibuprofen AdvReac Nausea Verified 02/27/23 11:03 Optifoam Allergy Rash Uncoded 02/27/23 11:03 coban AdvReac Hives Uncoded 02/27/23 11:03 - Social History Does the pt smoke?: Yes Smoking Status: Current every day smoker Does the pt drink ETOH?: Yes Does the pt have substance abuse?: No - Immunizations Immunizations are current?: Yes PD ED PE NORMAL - Vitals Vital signs reviewed: Yes (tachy, tachypneic, hypoxic and hypertensive ) - General General: Other (Thin appearing older female with wet sounding cough. ) - HEENT HEENT: Atraumatic, PERRL, EOMI, Other (parched mucous membranes ) - Neck Neck: Supple, no meningeal sign, No bony TTP - Cardiac Cardiac: Other (tachy, irregular) - Respiratory Respiratory: Other (tachypneic at rest with diminished breath sounds in the right base. ) - Abdomen Abdomen: Soft, Non tender - Back Back: No CVA TTP, No spinal TTP - Derm Derm: Warm and dry, Other (LE post inflamitory hyperpigmentation from distal thight to the feet. consistent with peripheral vascular disease. ) - Extremities Extremities: No deformity, No edema - Neuro Neuro: front worker 2-12 intact, No motor deficit, No sensory deficit, Normal speech Eye Opening: Spontaneous Motor: Obeys Commands Verbal: Oriented GCS Score: 15 - Psych Psych: Normal mood, Normal affect Results - Vitals Vitals: Vital Signs - 24 hr 02/27/23 02/27/23 02/27/23 10:21 11:30 13:27 Temperature 36.7 C Heart Rate 116 H 107 H 135 H Respiratory 26 H 24 23 Rate Blood Pressure 172/112 H 157/112 H 146/102 H O2 Saturation 93 95 100 If not protocol 2 3 : Oxygen Flow, liters/minute 02/27/23 02/27/23 02/27/23 13:47 13:49 15:46 Temperature Heart Rate 128 H 139 H Respiratory 30 H 25 H Rate Blood Pressure 154/99 H 84/70 L O2 Saturation 88 L 92 100 If not protocol 2 2 : Oxygen Flow, liters/minute 02/27/23 02/27/23 02/27/23 16:00 18:00 18:35 Temperature Heart Rate 106 H 128 H 106 H Respiratory 21 24 23 Rate Blood Pressure 92/73 115/80 131/78 H O2 Saturation 98 100 100 If not protocol 2 : Oxygen Flow, liters/minute Oxygen O2 Source Room air - EKG (time done) 1108 EKG releavant findings:: EKG personally interpreted by author of this note. Relevant findings are: Rate: Rate (enter#) (125) Rhythm: Sinus tachycardia, LAE Intervals: Prolonged QT QRS: LVH, Low voltage (borderline) Compare to prior EKG: Changed from prior EKG (SPT 11-21-19 the rate has inceased, low voltage, prolonged QTc, LVH criteria and lateral T-wave inversion have developed. ) Computer interpretation: Agree with computer - Labs Labs: Laboratory Tests 02/27/23 02/27/23 02/27/23 10:59 10:59 10:59 WBC 4.7 L RBC 5.66 H Hgb 17.3 H Hct 52.3 H MCV 92.4 MCH 30.6 MCHC 33.1 RDW 13.7 Plt Count 146 MPV 10.1 Neut # (Auto) 4.0 Lymph # (Auto) 0.6 L Garvin # (Auto) 0.1 Eos # (Auto) 0.0 Baso # (Auto) 0.0 Absolute Nucleated RBC 0.00 Nucleated RBC % 0.0 Sodium 135 Potassium 4.1 Chloride 96 L Carbon Dioxide 28 Anion Gap 11.0 BUN 14 Creatinine 0.3 L Estimated GFR (MDRD) 220 Glucose 77 Lactic Acid 1.3 Calcium 8.7 Magnesium Total Bilirubin 1.1 H AST 25 ALT 20 Alkaline Phosphatase 104 Troponin I High Sens B-Natriuretic Peptide Total Protein 7.6 Albumin 3.2 Globulin 4.4 H Albumin/Globulin Ratio 0.7 L Lipase 10 L Urine Color Urine Clarity Urine pH Ur Specific Whitefish Urine Protein Urine Glucose (UA) Urine Ketones Urine Occult Blood Urine Nitrite Urine Bilirubin Urine Urobilinogen Ur Leukocyte Esterase Ur Microscopic Review Urine Culture Comments Nasal Adenovirus (PCR) Nasal B. parapertussis DNA (PCR) Nasal Coronavir 229E PCR Nasal Coronavir HKU1 PCR Nasal Coronavir NL63 PCR Nasal Coronavir OC43 PCR Nasal Enterovir/Rhinovir PCR Nasal Influenza B PCR Nasal Influenza A PCR Nasal Parainfluen 1 PCR Nasal Parainfluen 2 PCR Nasal Parainfluen 3 PCR Nasal Parainfluen 4 PCR Nasal RSV (PCR) Nasal B.pertussis DNA PCR Nasal C.pneumoniae (PCR) Rambo Human Metapneumo PCR Nasal M.pneumoniae (PCR) Nasal SARS-CoV-2 (PCR) 02/27/23 02/27/23 02/27/23 10:59 11:06 13:42 WBC RBC Hgb Hct MCV MCH MCHC RDW Plt Count MPV Neut # (Auto) Lymph # (Auto) Garvin # (Auto) Eos # (Auto) Baso # (Auto) Absolute Nucleated RBC Nucleated RBC % Sodium Potassium Chloride Carbon Dioxide Anion Gap BUN Creatinine Estimated GFR (MDRD) Glucose Lactic Acid Calcium Magnesium 1.7 Total Bilirubin AST ALT Alkaline Phosphatase Troponin I High Sens B-Natriuretic Peptide Total Protein Albumin Globulin Albumin/Globulin Ratio Lipase Urine Color YELLOW Urine Clarity CLEAR Urine pH 6.0 Ur Specific Whitefish 1.025 Urine Protein TRACE Urine Glucose (UA) NEGATIVE Urine Ketones 40 H Urine Occult Blood NEGATIVE Urine Nitrite NEGATIVE Urine Bilirubin NEGATIVE Urine Urobilinogen 0.2 (NORMAL) Ur Leukocyte Esterase NEGATIVE Ur Microscopic Review NOT INDICATED Urine Culture Comments NOT INDICATED Nasal Adenovirus (PCR) NOT DETECTED Nasal B. parapertussis DNA (PCR) NOT DETECTED Nasal Coronavir 229E PCR NOT DETECTED Nasal Coronavir HKU1 PCR NOT DETECTED Nasal Coronavir NL63 PCR NOT DETECTED Nasal Coronavir OC43 PCR NOT DETECTED Nasal Enterovir/Rhinovir PCR NOT DETECTED Nasal Influenza B PCR NOT DETECTED Nasal Influenza A PCR NOT DETECTED Nasal Parainfluen 1 PCR NOT DETECTED Nasal Parainfluen 2 PCR NOT DETECTED Nasal Parainfluen 3 PCR NOT DETECTED Nasal Parainfluen 4 PCR NOT DETECTED Nasal RSV (PCR) NOT DETECTED Nasal B.pertussis DNA PCR NOT DETECTED Nasal C.pneumoniae (PCR) NOT DETECTED Rambo Human Metapneumo PCR NOT DETECTED Nasal M.pneumoniae (PCR) NOT DETECTED Nasal SARS-CoV-2 (PCR) NOT DETECTED 02/27/23 02/27/23 15:36 15:36 WBC RBC Hgb Hct MCV MCH MCHC RDW Plt Count MPV Neut # (Auto) Lymph # (Auto) Garvin # (Auto) Eos # (Auto) Baso # (Auto) Absolute Nucleated RBC Nucleated RBC % Sodium Potassium Chloride Carbon Dioxide Anion Gap BUN Creatinine Estimated GFR (MDRD) Glucose Lactic Acid Calcium Magnesium Total Bilirubin AST ALT Alkaline Phosphatase Troponin I High Sens 304.0 H* B-Natriuretic Peptide 1222 H Total Protein Albumin Globulin Albumin/Globulin Ratio Lipase Urine Color Urine Clarity Urine pH Ur Specific Whitefish Urine Protein Urine Glucose (UA) Urine Ketones Urine Occult Blood Urine Nitrite Urine Bilirubin Urine Urobilinogen Ur Leukocyte Esterase Ur Microscopic Review Urine Culture Comments Nasal Adenovirus (PCR) Nasal B. parapertussis DNA (PCR) Nasal Coronavir 229E PCR Nasal Coronavir HKU1 PCR Nasal Coronavir NL63 PCR Nasal Coronavir OC43 PCR Nasal Enterovir/Rhinovir PCR Nasal Influenza B PCR Nasal Influenza A PCR Nasal Parainfluen 1 PCR Nasal Parainfluen 2 PCR Nasal Parainfluen 3 PCR Nasal Parainfluen 4 PCR Nasal RSV (PCR) Nasal B.pertussis DNA PCR Nasal C.pneumoniae (PCR) Rambo Human Metapneumo PCR Nasal M.pneumoniae (PCR) Nasal SARS-CoV-2 (PCR) - Rads (name of study) chest Relevant Findings:: Prelim report reviewed (Impression: Bibasilar opacities concerning for infection with probable pleural effusions.), EMP independent interpretation of test, See rad report throacic spine Relevant Findings:: Prelim report reviewed (New wedge deformity of T7 and T8 chronic wedge deformity at T12 and L1 with loss of the previously seen intervertebral free air suggesting acute on chronic inflammatory changes. Mucous plugging within the right mainstem bronchus), EMP independent interpretation of test, See rad report Procedures - IVC sono (time) 1048 Bedside IVC sono: IVC measures (cm) (0.89), Dehydration (est 2 liter deficit) PD Medical Decision Making - ED course Complexity details: d/w school plant consultant (I consulted with our hospitalist Dr. Greer for admission of the patient she recommended additional testing and elevated troponin was discovered.) Reviewed Lab Results: We reviewed a complete blood count showing a white blood cell count depressed at 4 point similar similar to what the patient has had previously. Her hemoglobin and hematocrit are both elevated hematocrit at 52.3 this is a marked change from her baseline which is about 45. My interpretation of this is consistent with the level of dehydration demonstrated on this patient. Chemistries are unremarkable with normal electrolytes a low creatinine normal glucose. Kidney and liver functions are normal. Lactate is normal at 1.3 these specific laboratories values do not give specific diagnostic assistance. lumbar spine: Impression: 1. Multilevel wedge deformities which are favored to be likely the chronic in nature 2. The resolution of vacuum disc phenomena at the thoracolumbar junction sug gest that there may be some acute on chronic inflammatory changes at these levels however the overall morphology is grossly unchanged. 3. Exaggerated kyphosis at the level of wedge deformity of T12 unchanged. 4. Exam is degraded by nonstandard patient positioning. 5. Multilevel degenerative changes lumbar spine contributing to osseous spinal canal and foraminal narrowing as above. ED course: 72-year-old female with a history of peripheral vascular disease presents to the emergency department today with increased back pain and inability to get out of bed. She has been having symptoms for about 4 days and she is significantly dehydrated related to this. She does have abnormal vital signs. She presents to the emergency department with a heart rate of 125 and oxygen saturation depressed at 91%. She has a wet sounding cough and an x-ray done demonstrates the appearance of bilateral pleural effusions concerning for infection R> L. On arrival we are administering intravenous saline and Toradol. CT of the thoracic and lumbar spine are pending. Her history is consistent with the possibility of new compression fracture. New compression fracture is found in the thoracic spine there is significant degenerative changes throughout the spine otherwise. The patient does have some changes to her electrocardiogram including some inverted T waves in the lateral leads and she has an elevation in her troponin. For this we reason consultation with cardiology is sought. At shift change her care is turned over to Dr. Howard with consultation with cardiology pending. Additional studies are performed to rule out PE. Departure - Departure Clinical Impression: Dehydration, NSTEMI (non-ST elevated myocardial infarction) Pneumonia Qualifiers: Pneumonia type: due to unspecified organism Laterality: bilateral Lung location: lower lobe of lung Qualified Code(s): J18.9 - Pneumonia, unspecified organism Thoracic compression fracture Qualifiers: Encounter type: initial encounter Thoracic vertebra fracture level: T7 Qualified Code(s): S22.060A - Wedge compression fracture of T7-T8 vertebra, initial encounter for closed fracture Condition: Fair
[2023-02-27 11:05] LABS: BASOPHILS % (AUTO) 0.2 %; EOSINOPHILS % (AUTO) 0.2 %; HCT - HEMATOCRIT 52.3 % (37.0-47.0); HGB - HEMOGLOBIN 17.3 g/dL (12.0-16.0); LYMPHOCYTES # (AUTO) 0.6 10^3/uL (1.5-3.5); LYMPHOCYTES % (AUTO) 12.5 %; MEAN CORPUSCULAR HEMOGLOBIN 30.6 pg (27.0-31.0); MEAN CORPUSCULAR HGB CONC 33.1 g/dL (32.0-36.0); MEAN CORPUSCULAR VOLUME 92.4 fL (81.0-99.0); MEAN PLATELET VOLUME 10.1 fL (7.9-10.8); MONOCYTES # (AUTO) 0.1 10^3/uL (0.0-1.0); MONOCYTES % (AUTO) 2.8 %; NEUTROPHILS % (AUTO) 83.9 %; PLT - PLATELET COUNT 146 10^3/uL (130-450); RED BLOOD COUNT 5.66 10^6/uL (4.20-5.40); RED CELL DISTRIBUTION WIDTH 13.7 % (12.0-15.0); WHITE BLOOD COUNT 4.7 x10^3/uL (4.8-10.8)
[2023-02-27 11:25] LABS: ALBUMIN 3.2 g/dL (3.2-5.5); ALBUMIN/GLOBULIN RATIO 0.7 (1.0-2.2); BILIRUBIN,TOTAL 1.1 mg/dL (0.2-1.0); CALCIUM 8.7 mg/dL (8.5-10.3); CREATININE 0.3 mg/dL (0.6-1.3); POTASSIUM 4.1 mmol/L (3.5-4.5); TOTAL PROTEIN 7.6 g/dL (6.4-8.9)
--- NOTE | 2023-02-27 11:28 | XRAY Report ---
PROCEDURE: Chest 1V INDICATIONS: hypoxia decreased breath sounds TECHNIQUE: One view of the chest was acquired. COMPARISON: None. FINDINGS: Surgical changes and devices: None. Lungs and pleura: Right lower lobe airspace opacity. Left lower lobe airspace opacities. Questionable bilateral pleural effusions. No pneumothorax. Mediastinum: Mediastinal contours appear normal. Heart size is normal. Bones and chest wall: No suspicious bony lesions. Overlying soft tissues appear unremarkable. IMPRESSION: Bibasilar opacities concerning for infection with probable pleural effusions. Reviewed by: Josep Ragsdale MD on 02/27/2023 10:27 AM [facility] [place] Approved by: Josep Ragsdale MD on 02/27/2023 10:27 AM [facility] [place] Station ID: [id number]
[2023-02-27 12:00] LABS: B. PARAPERTUSSIS- RESP PCR PAN NOT DETECTED; B. PERTUSSIS- RESP PCR PANEL NOT DETECTED; C. PNEUMONIAE- RESP PCR PANEL NOT DETECTED; CORONAVIRUS 229E-RESP PCR NOT DETECTED; CORONAVIRUS HKU1-RESP PCR NOT DETECTED; CORONAVIRUS NL63-RESP PCR NOT DETECTED; CORONAVIRUS OC43-RESP PCR NOT DETECTED; HUMAN METAPNEUMOVIRUS NOT DETECTED; INFLUENZA A- RESP PCR PANEL NOT DETECTED; INFLUENZA B - RESP PCR PANEL NOT DETECTED; M. PNEUMONIAE- RESP PCR PANEL NOT DETECTED; PARAINFLUENZA VIRUS 1 NOT DETECTED; PARAINFLUENZA VIRUS 2 NOT DETECTED; PARAINFLUENZA VIRUS 3 NOT DETECTED; PARAINFLUENZA VIRUS 4 NOT DETECTED; RHINOVIRUS/ENTEROVIRUS NOT DETECTED; RSV- RESP PCR PANEL NOT DETECTED; SARS-CoV-2 -RESP PCR PANEL NOT DETECTED
[2023-02-27] MEDS ORDERED: cefTRIAXone 1 GM in SODIUM CHLORIDE 0.9% MINIBAG 100 ML IV STA (12:28)
[2023-02-27] MEDS ORDERED: AZITHROMYCIN INJ 500 MG in SODIUM CHLORIDE 0.9% 250 ML IV STA (12:28)
[2023-02-27] MEDS ORDERED: MAGNESIUM SULFATE 2 GRAM 2 GM/50 ML BAG IV ONE (12:29)
[2023-02-27] MEDS ORDERED: ONDANSETRON 4 MG/2 ML VIAL IVP STA (13:26)
[2023-02-27] MEDS ORDERED: HYDROmorphone 0.5 MG/0.5 ML SYRINGE IVP STA (13:28)
--- NOTE | 2023-02-27 13:48 | CT Report ---
PROCEDURE: Lumbar Spine WO INDICATIONS: increased pain with movement TECHNIQUE: Noncontrast 3 mm thick sections acquired from the L4 level to the sacrum. Sagittal and coronal refor mats were constructed. For radiation dose reduction, the following was used: automated exposure con trol, adjustment of mA and/or kV according to patient size. COMPARISON: CT thoracic spine from same date FINDINGS: Image quality: The exam is degraded by substandard patient positioning and patient compliance. The u pper lumbar spine is seen on comparison CT thoracic spine from same date. For the purpose of this exa mination both studies were utilized to evaluate the lumbar spine Bones: Diffuse osseous demineralization. There is exaggerated kyphosis of the thoracic spine with lar ge wedge deformity of T12 resulting in approximately 50% height loss. . The previously seen vacuum di sc phenomenon at T11-T12, T12-L1 and L1-L2 is no longer evident Mild wedge deformities of L1-L2 and L 4. Large Schmorl nodes. No suspicious lytic or blastic bony lesions. Central spinal caliber is of s mall caliber predisposing the patient to spinal canal stenosis. No pars defects. T12-L1: Disc height loss with no significant bony osseous spinal canal or foraminal narrowing. L1-L2: Small posterior disc osteophyte complex result in mild spinal canal stenosis. Facet arthros is contributes to left severe foraminal narrowing. L2-L3: No central spinal canal stenosis. Facet arthrosis results in mild bilateral osseous foramin al narrowing. L3-L4: Posterior disc osteophyte complex results in mild osseous spinal canal narrowing. Facet arth rosis results in mild foraminal osseous narrowing. L4-L5: Posterior disc osteophyte complex results in mild osseous canal stenosis. Probable soft tiss ue disc disease results in further canal narrowing which would be better evaluated by MRI. Facet arth rosis results in no significant foraminal narrowing. L5-S1: The disc height loss with posterior disc osteophyte complex resulting in mild spinal canal s tenosis. Facet arthrosis results in moderate bilateral foraminal narrowing. Soft tissues: No retroperitoneal masses or hematomas. Visualized aorta is normal in caliber. IMPRESSION: 1.Multilevel wedge deformities which are favored to likely be chronic in nature. 2.The resolution of vacuum disc phenomenon at the thoracolumbar junction suggest that there may be so me acute on chronic inflammatory changes at these levels however the overall morphology is grossly un changed. 3.Exaggerated kyphosis at the level of wedge deformity of T12, unchanged. 4.Exam is degraded by nonstandard patient positioning 5.Multilevel degenerative changes lumbar spine contributing to osseous spinal canal and foraminal rohan rowing as above. Reviewed by: Josep Ragsdale MD on 02/27/2023 12:47 PM [facility] Approved by: Josep Ragsdale MD on 02/27/2023 12:47 PM [facility] Station ID: [id number]
[2023-02-27 13:50] LABS: BILIRUBIN,URINE NEGATIVE (NEGATIVE); GLUCOSE, URINE (UA) NEGATIVE (NEGATIVE); KETONES,URINE (UA) 40 mg/dL (NEGATIVE); LEUKOCYTE ESTERASE, URINE NEGATIVE (NEGATIVE); NITRITE,URINE NEGATIVE (NEGATIVE); OCCULT BLOOD,URINE NEGATIVE (NEGATIVE); PROTEIN,URINE TRACE mg/dL (NEGATIVE); UROBILINOGEN,URINE 0.2 (NORMAL) E.U./dL (NORMAL)
[2023-02-27 13:58] LABS: CLARITY,URINE CLEAR (CLEAR)
--- NOTE | 2023-02-27 14:06 | CT Report ---
PROCEDURE: Thoracic Spine WO INDICATIONS: increased pain with movement TECHNIQUE: Noncontrast 3 mm thick sections acquired through the region of interest in the thoracic spine. Sagit zenaida and coronal reformats were then constructed. For radiation dose reduction, the following was used : automated exposure control, adjustment of mA and/or kV according to patient size. COMPARISON: CT chest December 03, 2022 FINDINGS: Image quality: Quality is degraded by substandard patient positioning and patient compliance. Bones: New wedging deformities at T7 and T8. There is horizontal linear sclerotic pattern along the superior aspect of T8 and inferior aspect of T7. No displacement of the posterior elements. Chronic w edge deformity of T12. The previously seen vacuum disc phenomenon at the thoracolumbar junction is no w nearly completely resolved with a trace residual foci of air at L1-L2. Exaggerated kyphotic curvatu re at T12. Central spinal canal is of decrease caliber predisposing the patient to spinal canal rohan rowing. Soft tissues: No paravertebral masses or hematomas. Opacities in the bibasilar regions. Mucous plugging and frothy secretions within the right mainstem b ronchus. IMPRESSION: 1.New wedge deformity of T7 and T8. 2.Chronic wedge deformity at T12 and L1 with loss of the previously seen in the vertebral free air lima ggesting acute on chronic inflammatory changes. 3.Mucous plugging within the right mainstem bronchus Reviewed by: Josep Ragsdale MD on 02/27/2023 1:05 PM [facility] Approved by: Josep Ragsdale MD on 02/27/2023 1:05 PM [facility] Station ID: [id number]
[2023-02-27] MEDS ORDERED: ENOXAPARIN 40 MG/0.4 ML SYRINGE SUBQ STA (18:52)
[2023-02-27] MEDS ORDERED: HYDROmorphone 1 MG/ML CARPUJECT IVP STA (20:01)
[2023-02-27] MEDS ORDERED: iohexoL-300 100 ML VIAL ONE (20:20)
--- NOTE | 2023-02-27 21:23 | CT Report ---
PROCEDURE: Angio Chest INDICATIONS: dyspnea, elevated trop CONTRAST: 100 ml omni 300 TECHNIQUE: After the administration of intravenous contrast, 2 mm axial images were acquired from the pulmonary apices to the posterior costophrenic angles during the arterial phase. In addition, 1 mm lung kernel and 5 mm soft tissue kernel reconstructions were performed. 3-dimensional coronal oblique maximum int ensity projection (MIP) reformats, 8 mm axial MIP, and 5 mm coronal and sagittal MPR reformats were t hen performed through the thorax. For radiation dose reduction, the following was used: automated exp osure control, adjustment of mA and/or kV according to patient size. COMPARISON: None. FINDINGS: Image quality: Excellent. Large vessels: No filling defects within the opacified pulmonary arteries, accounting for motion and contrast timing. No evidence of acute aortic syndrome or aortic aneurysm. Lungs and pleura: No consolidation. No pleural effusions. No pneumothorax. Bibasilar atelectasis. M oderate centrilobular emphysema. Debris within the right lower lobar bronchus. Mediastinum: Heart size is enlarged. No pericardial effusion. No large vessel abnormality. No mediast inal adenopathy by size criteria. Chest wall and lower neck: Thyroid is unremarkable. No axillary or supraclavicular adenopathy by size . Bones: No aggressive osseous abnormality. Multilevel compression deformities with osteoporosis. The T 8 compression deformity appears subacute. The remaining compression deformities appear chronic. Age-i ndeterminate fracture of the sternum. Upper Abdomen: Unremarkable. IMPRESSION: No pulmonary embolus. Debris within the right lower lobar bronchus, which may be secretions or aspiration. Osteoporosis with multiple compression deformities, subacute to chronic. Age indeterminant fracture of the superior sternal body. Reviewed by: Lux Dunham MD on 02/27/2023 9:22 PM PST Approved by: Lux Dunham MD on 02/27/2023 9:22 PM PST Station ID: [id number]
[2023-02-27] MEDS ORDERED: iohexoL-300 100 ML VIAL IVP ONE (21:33)
[2023-02-27] MEDS ORDERED: IPRATROPIUM/ALBUTEROL 3 ML NEB INH STA (21:34)
--- NOTE | 2023-02-27 21:59 | ED Physician Documentation ---
ED Addendum - Addendum Addendum: 02/27/23 21:56 Patient was signed out to me by Dr. Hunt. A CT pulmonary angiogram was ordered to evaluate for potential pulmonary embolism. There is no PE on that study. There is debris in the right lower lobar bronchus, secretions versus aspiration. Has osteoporosis with multiple compression deformities, subacute to chronic. There is an age-indeterminate fracture of the superior sternal body. She does have a mild elevation of her high-sensitivity troponin. A repeat high sensitive troponin was ordered. She was given Lovenox here. The patient denies any cardiac history. She also denies any COPD history. Does not use inhalers but was found to be hypoxic upon arrival here. She does not have any peripheral edema on evaluation of her lower extremities. No pulmonary edema. Suspect that the BNP elevation is likely not related to congestive heart failure but more likely related to her COPD and possible pneumonia. DuoNeb was ordered as she has very diminished breath sounds bilaterally. She is hypoxic, 88% on room air so is maintained on oxygen. Does not use oxygen at home. She does still smoke but states she has not been able to inhale enough over the past 3 to 4 days to smoke a cigarette. I did speak with Dr. Hoffmann, cardiology at [facility], he states that this is not someone he would catheterize urgently. Recommends a echocardiogram and medical management. Unlikely that if her troponin stabilizes, breathing improved that she can be admitted here for an echo in the morning and medical management of her likely undiagnosed COPD, right lower lobe potential pneumonia. Patient will be signed out to Dr. Aguirre for repeat evaluation. Departure - Departure Clinical Impression: Dehydration, NSTEMI (non-ST elevated myocardial infarction), COPD with exacerbation, Hypoxia Pneumonia Qualifiers: Pneumonia type: due to unspecified organism Laterality: bilateral Lung locati on: lower lobe of lung Qualified Code(s): J18.9 - Pneumonia, unspecified organism Thoracic compression fracture Qualifiers: Encounter type: initial encounter Thoracic vertebra fracture level: T7 Qualified Code(s): S22.060A - Wedge compression fracture of T7-T8 vertebra, initial encounter for closed fracture Condition: Stable
--- NOTE | 2023-02-27 23:41 | HISTORY & PHYSICAL EXAMINATION ---
Chief Complaint - Chief Complaint Chief Complaint: back pain History of Present Illness - Admitted From Admitted From:: home - History Obtained From History obtained from: patient, ER provider Exam Limitations: telemedicine - History of Present Illness HPI Comment/Other: Ms Brennan is a 72 yo F with hx HTN, PVD, rheumatoid arthritis. Presents to ER with c/o back pain, onset months ago, but worse for the past 6-7 days, not able to get out of bed. Pt had a fall in November, tripped while using her walker. No recent falls or trauma. Currently pain improved 4-5/, feels comfortable. Also has a cough, pt reports it's tough to cough because of the back pain. Denies fevers/chills. Denies sick contacts. Denies N/V, chest pain. Has not smoked for the past 5 days, prior smokes ~1/2 PPD. Pt reports she has lost approx 70 lbs over the past year. Denies LE swelling. History - Past Medical History Cardiovascular: reports: Hypertension, High cholesterol, Peripheral Vascular Disease Respiratory: reports: None Neuro: reports: None Endocrine/Autoimmune: reports: HyPOthyroidism (not on medications) GI: reports: None [employer]: reports: None : reports: None HEENT: reports: None Psych: reports: None Musculoskeletal: reports: Rheumatoid arthritis, Other Derm: reports: None MRSA Hx?: No - Past Surgical History /[employer]: reports: Hysterectomy - Family & Social History Living Situation: With spouse/s.o. - Substance History Use: Uses substance without health or social issues: Tobacco - POLST Patient has POLST: Yes Meds/Allgy - Home Medications Home Medications: Ambulatory Orders Medication Instructions Recorded Confirmed Amlodipine Besylate [Norvasc] 10 mg PO DAILY 12/27/22 12/27/[address] [Voltaren] 75 mg PO BID 12/27/22 12/27/22 sulfaSALAzine [Sulfasalazine] 750 mg PO BID 12/27/22 12/27/22 Aspirin [Aspirin EC] 81 mg PO 02/27/23 - Allergies Allergies/Adverse Reactions: Allergies Allergy/AdvReac Type Severity Reaction Status Date / Time hydrochlorothiazide Allergy Anaphylaxis Verified 02/27/23 11:03 hydroxychloroquine Allergy Anaphylaxis Verified 02/27/23 11:03 ibuprofen AdvReac Nausea Verified 02/27/23 11:03 Optifoam Allergy Rash Uncoded 02/27/23 11:03 coban AdvReac Hives Uncoded 02/27/23 11:03 Review of Systems - Constitutional Constitutional: reports: Fatigue, Weakness, Poor appetite, Weight loss (Lost 70 lbs over the past year). denies: Fever, Chills - Eyes Eyes: denies: Pain, Blurred vision - Ears, Nose & Throat Ears, Nose & Throat: denies: Ear pain - Cardiovascular Cariovascular: denies: Chest pain, Edema - Respiratory Respiratory: reports: Cough. denies: Sputum production, Wheezing, SOB at rest - Gastrointestinal Gastrointestinal: denies: Abdominal pain, Constipation, Diarrhea, Nausea, Vomiting - Genitourinary Genitourinary: reports: Incontinence. denies: Dysuria, Frequency, Hematuria - Musculoskeletal Musculoskeletal: reports: Back pain, Limited range of motion. denies: Muscle pain - Integumentary Integumentary: denies: Rash, Pruritis - Neurological Neurological: reports: General weakness. denies: Focal weakness Exam - Vital Signs Vital Signs: Vital Signs x48h Temp Pulse Resp BP Pulse Ox O2 Flow Rate 02/27/23 22:00 36.8 C 53 L 19 100/73 84 L 02/27/23 21:55 107 H 18 2 02/27/23 21:18 127 H 19 112/97 H 97 2 02/27/23 18:35 106 H 23 131/78 H 100 02/27/23 18:00 128 H 24 115/80 100 2 02/27/23 16:00 106 H 21 92/73 98 02/27/23 15:46 139 H 25 H 84/70 L 100 2 Conclusion/Plan - Lab Results Lab results reviewed: Yes Fish Bones: 02/27/23 10:59 02/27/23 10:59 - Diagnostic Imaging Results Diagnostic Imaging Results: positive: Final report reviewed - Other Other Results/Comments: Assessment/Plan: Acute hypoxic respiratory failure Bilateral community acquired pneumonia COPD exacerbation -Currently on 2 L NC, de-sat to low 80s on RA -Received IV steroids in ER -Pt does not have formal COPD diagnosis but does have tobacco use -Rec further outpatient pulmonology evaluation -Continue steroids, IV ceftriaxone, IV azithromycin -Duonebs q6h -Wean supplemental O2 as tolerated Elevated troponin -ER provider has reviewed case with cardiology - rec echocardiogram, ordered -Troponin trending down -CTA chest neg for PE HTN -BP elevated at admission - pt has not taken home meds x 5 days -PRN hydralazine -Continue home meds Back pain -Multi-level wedge deformities on spinal imaging likely chronic changes per report -Pt reports fall in November, no recent falls/trauma since that time -PT/OT consult -Pain control Tobacco use -Cessation counseling - pt is motivated to quit, has not smoked past 5 days -Declined nicotine patch DVT ppx: Heparin sc Full code Telemedicine Consult Details - Provider Location & Consult Time Telemedicine consultation conducted via videoconferencing?: Yes List names and roles of persons who participated in consult:: Dr Arana, patient Jonathan Brennan Telemedicine provider location:: [place]
[2023-02-27] MEDS ORDERED: ONDANSETRON 4 MG/2 ML VIAL IVP PRN (23:56)
[2023-02-28] MEDS ORDERED: IPRATROPIUM/ALBUTEROL 3 ML NEB INH PRN (00:01)
[2023-02-28] MEDS: SODIUM CHLORIDE FLUSH 0.9% 10 ML SYRINGE IVP SCH ×3 (00:26→16:45)
[2023-02-28] MEDS: ACETAMINOPHEN 325 MG TABLET PO PRN ×2 (00:55→14:39)
[2023-02-28 06:29] LABS: BASOPHILS % (AUTO) 0.5 %; HCT - HEMATOCRIT 41.5 % (37.0-47.0); HGB - HEMOGLOBIN 13.6 g/dL (12.0-16.0); LYMPHOCYTES # (AUTO) 0.8 10^3/uL (1.5-3.5); LYMPHOCYTES % (AUTO) 20.3 %; MEAN CORPUSCULAR HEMOGLOBIN 30.5 pg (27.0-31.0); MEAN CORPUSCULAR HGB CONC 32.8 g/dL (32.0-36.0); MEAN PLATELET VOLUME 10.2 fL (7.9-10.8); MONOCYTES # (AUTO) 0.3 10^3/uL (0.0-1.0); MONOCYTES % (AUTO) 6.6 %; NEUTROPHILS # (AUTO) 2.7 10^3/uL (1.5-6.6); NEUTROPHILS % (AUTO) 72.3 %; PLT - PLATELET COUNT 130 10^3/uL (130-450); RED BLOOD COUNT 4.46 10^6/uL (4.20-5.40); WHITE BLOOD COUNT 3.8 x10^3/uL (4.8-10.8)
[2023-02-28 06:40] LABS: CALCIUM 8.1 mg/dL (8.5-10.3); CREATININE 0.3 mg/dL (0.6-1.3); POTASSIUM 3.5 mmol/L (3.5-4.5)
[2023-02-28] MEDS ORDERED: amLODIPine 5 MG TABLET PO ONE ×2 (09:00→19:00)
[2023-02-28] MEDS ORDERED: HEPARIN 5,000 UNIT/ML VIAL SUBQ SCH (09:00)
[2023-02-28] MEDS ORDERED: predniSONE 20 MG TABLET PO SCH (09:00)
--- NOTE | 2023-02-28 09:27 | PROVIDER PROGRESS NOTE ---
Assessment/Plan - Problem List (1) Acute respiratory failure with hypoxia Assessment/Plan: She was de-saturating to low 80s on RA in ER Cause is from underlying COPD, with a COPD exacerbation, and from pneumonia. CXR and CT chest did not report CHF, but she does have an acute OR. CTA chest neg for PE Currently on 2 L NC, Plan: Cont suppl O2, with target satur 90% or above. Wean supplemental O2 as tolerated Treat the underlying causes (2) Community acquired pneumonia Bilat infiltrates, as per CXR. CT also showed a mucous plug or aspiration in a bronchus Plan: Cont empiric Cefrrriaxone and Zithromax Obtain spt cx and await blood cx results to tailor antibx (3) COPD with exacerbation Pt does not have formal COPD diagnosis but does have long Hx of tobacco use Plan: Continue steroids iv and inhaled I will change Duoneb q4h prn to Xopenex (to prevent tachy given her OR), and order it scheduled QID plus q4h prn Start Montelukast Rec further outpatient pulmonology evaluation and tx Smoking cessation was discussed (4) Acute NSTEMI Her adm EKG had signif deep T wave inversions anteriorly in V4-V6 and her first trop was elevated at 304. ER provider then reviewed case with Dr. Hoffmann, Cardiology at [facility], he stated that this is not someone he would catheterize urgently. He recommended getting an Echocardiogram and medical management. Her next troponin dropped, is 328 (all labs were reviewed) Her repeat EKG today, which I interpreted shows: NSR, rate 87, PAC, deep and symmetric T wave inversions in leads I, II, AVL, AVF, V2-V6. Since her EKG from yesterday, T wave inversions are more extensive now. Plan: Stop Prednisone which promotes cardiac perforation when used during acute OR Restart her daily ASA, which she was on for PVD Add B-1 selective B-shira, therapeutic Lovenox dose BID for at least 3 days, and start a statin. Check a fasting lipid panel, which was not ordered by Telemed admitter, and treat per guidelines. Obtain Echo (but we only have Glass Bulb Machine Adjuster here T-Th, and today is Mon) Monitor on telemetry I discussed with pt her wishes for further management such as cor angio vs medical management (she would not get angio anyway currently during an infection plus laying for cardac cath may be too painful with her severe back pain), and since she had a leg angio she would agree to coronary angio she said (5) HTN BP elevated at admission - pt had not taken home meds x 5 days. This could have precipitated the acute OR. Plan: PRN hydralazine ordered B-shira will be started She was on max dose of amlodipine which I will resume at 2.5 mg daily since new B-shira on board (6) Back pain Multi-level wedge deformities on spinal imaging, are likely chronic changes per report Pt reports fall in November, no recent falls/trauma since that time Plan: PT/OT consult Pain control with incr pain meds (7) Tobacco use She declined nicotine patch. Pt is motivated to quit, has not smoked for 5 days Plan: Cessation counseling (8) PVD By history, she had recurrent leg wounds and when she underwent stenting of the L leg in September 2022, she had significant healing and improvment. She denies any claudication sx Plan: Restart daily ASA Await reconciled med list to resume any other PVD meds (9) RA Plan: Await reconciled med list to resume her meds like Sulfasalazine (10) Severe protein calorie malnutrition Her BMI is 13. She has lost 20% of her weight in 2 months. Her dentures no longer fit because of weight loss She lives alone and says that she has a caregiver but just 1 day/wk and has friends that also help her. But she was not fed in 5 days, layed in bed because of back pain and she had no appetite We spoke about her needing more caregivers hired or a different plan like Asst Living Plan: Nutrition consult for recom She said she mostly eats very soft and pureed food and liquids. I will request a consult from general surgery to do EGD to look for esophageal problems, she agrees to that. Will add Remeron. - Current Meds Current Meds: Current Medications Generic Name Dose Route Start Last Admin Trade Name Freq PRN Reason Stop Dose Admin Acetaminophen 650 mg 02/27/23 23:56 02/28/23 00:55 Acetaminophen 325 Mg Tablet PO 650 mg Q4HR PRN Administration Pain 1 to 4, or Fever Sodium Chloride 10 ml 02/28/23 01:00 02/28/23 00:26 Sodium Chloride Flush 0.9% 10 Ml Syringe IVP 10 ml 0100,0900,1700 LEV Administration - Lab Result Fish Bone Diagrams: 02/28/23 06:08 02/28/23 09:25 - EKG Results EKG Interpreted Independently: Yes EKG Comparison: Changed from prior EKG EKG Findings: NSR, rate 87, PAC, deep and symmetric T wave inversions in leads I, II, AVL, AVF, V2-V6. Since her EKG from yesterday, T wave inversions are more extensive now. - Additional Planning My Orders: My Active Orders 02/28/23 BMP - BASIC METABOLIC PANEL [CHEM] Urgent 02/28/23 09:12 EKG - Electrocardiogram [RC] .ONCE 02/28/23 10:00 Aspirin EC [Ecotrin] DOSE UNIT RTE FREQ 02/28/23 Lunch Cardiac Diet [DIET] 02/28/23 21:00 Famotidine [Pepcid] 20 mg PO BID 03/01/23 05:00 BMP - BASIC METABOLIC PANEL [CHEM] DAILYLAB CALCIUM [CHEM] DAILYLAB CBC - COMP BLD CT W/AUTO DIFF [HEME] DAILYLAB LIPID Panel [CHEM] DAILYLAB MAGNESIUM [CHEM] DAILYLAB PHOSPHORUS [CHEM] DAILYLAB 03/01/23 07:00 Echo Transthoracic Complete [ECHO] Routine Subjective - Subjective Patient Reports: Feeling Better (Because of having HOB elevated in a hospital bed, her back pain is controlled), Cough Objective Vital Signs: Vital Signs - 24 hr 02/27/23 02/27/23 02/27/23 10:21 11:30 13:27 Temperature 36.7 C Heart Rate 116 H 107 H 135 H Heart Rate [ Brachial] Heart Rate [ Radial] Respiratory 26 H 24 23 Rate Blood Pressure 172/112 H 157/112 H 146/102 H Blood Pressure [Right Brachial artery] O2 Saturation 93 95 100 If not protocol 2 3 : Oxygen Flow, liters/minute 02/27/23 02/27/23 02/27/23 13:47 13:49 15:46 Temperature Heart Rate 128 H 139 H Heart Rate [ Brachial] Heart Rate [ Radial] Respiratory 30 H 25 H Rate Blood Pressure 154/99 H 84/70 L Blood Pressure [Right Brachial artery] O2 Saturation 88 L 92 100 If not protocol 2 2 : Oxygen Flow, liters/minute 0102/27/23 02/27/23 16:00 18:00 18:35 Temperature Heart Rate 106 H 128 H 106 H Heart Rate [ Brachial] Heart Rate [ Radial] Respiratory 21 24 23 Rate Blood Pressure 92/73 115/80 131/78 H Blood Pressure [Right Brachial artery] O2 Saturation 98 100 100 If not protocol 2 : Oxygen Flow, liters/minute 02/27/23 02/27/23 02/27/23 21:18 21:55 22:00 Temperature 36.8 C Heart Rate 127 H 107 H 53 L Heart Rate [ Brachial] Heart Rate [ Radial] Respiratory 19 18 19 Rate Blood Pressure 112/97 H 100/73 Blood Pressure [Right Brachial artery] O2 Saturation 97 84 L If not protocol 2 2 : Oxygen Flow, liters/minute 02/28/23 02/28/23 02/28/23 00:26 01:12 05:46 Temperature 36.9 C 36.5 C Heart Rate Heart Rate [ Brachial] Heart Rate [ 94 85 Radial] Respiratory 20 18 Rate Blood Pressure Blood Pressure 127/80 111/75 [Right Brachial artery] O2 Saturation 92 93 If not protocol 2 2 2 : Oxygen Flow, liters/minute 02/28/23 08:00 Temperature 36.3 C L Heart Rate Heart Rate [ 87 Brachial] Heart Rate [ Radial] Respiratory 18 Rate Blood Pressure Blood Pressure 135/84 H [Right Brachial artery] O2 Saturation 96 If not protocol 2 : Oxygen Flow, liters/minute Oxygen O2 Source Nasal cannula I&O (Last 24 Hrs): Intake and Output Totals x24h 02/26/23 02/27/23 02/28/23 23:59 23:59 23:59 Intake Total 2400 Output Total 200 Balance 2400 -200 General: Alert, Oriented x3, Other (Cachectic) HEENT: EOMI, Mucous membr. moist/pink, Other (edentulous) Neck: Supple, No JVD, Other (muscle wasting) Neuro: Alert, Non Focal Cardiovascular: Regular rate, No murmurs Respiratory: Wheezes (scattered wheezing and poor air mvm) Abdomen: Normal bowel sounds, Soft, No tenderness Extremities: No clubbing, No edema, No tenderness/swelling, Other (Venous stasis changes of both shins R>L. Good L leg P pulse. Muscle wasting of arms and legs.) - Results Results: Laboratory Results WBC 3.8 x10^3/uL (4.8-10.8) L 02/28/23 06:08 RBC 4.46 10^6/uL (4.20-5.40) 02/28/23 06:08 Hgb 13.6 g/dL (12.0-16.0) 02/28/23 06:08 Hct 41.5 % (37.0-47.0) 02/28/23 06:08 MCV 93.0 fL (81.0-99.0) 02/28/23 06:08 MCH 30.5 pg (27.0-31.0) 02/28/23 06:08 MCHC 32.8 g/dL (32.0-36.0) 02/28/23 06:08 RDW 14.0 % (12.0-15.0) 02/28/23 06:08 Plt Count 130 10^3/uL (130-450) 02/28/23 06:08 MPV 10.2 fL (7.9-10.8) 02/28/23 06:08 Neut # (Auto) 2.7 10^3/uL (1.5-6.6) 02/28/23 06:08 Lymph # (Auto) 0.8 10^3/uL (1.5-3.5) L 02/28/23 06:08 Noble # (Auto) 0.3 10^3/uL (0.0-1.0) 02/28/23 06:08 Eos # (Auto) 0.0 10^3/uL (0.0-0.7) 02/28/23 06:08 Baso # (Auto) 0.0 10^3/uL (0.0-0.1) 02/28/23 06:08 Absolute Nucleated RBC 0.00 x10^3/uL 02/28/23 06:08 Nucleated RBC % 0.0 /100WBC 02/28/23 06:08 Sodium 133 mmol/L (135-145) L 02/28/23 06:08 Potassium 3.5 mmol/L (3.5-4.5) 02/28/23 06:08 Chloride 100 mmol/L (101-111) L 02/28/23 06:08 Carbon Dioxide 29 mmol/L (21-32) 02/28/23 06:08 Anion Gap 4.0 (6-13) L 02/28/23 06:08 BUN 12 mg/dL (6-20) 02/28/23 06:08 Creatinine 0.3 mg/dL (0.6-1.3) L 02/28/23 06:08 Estimated GFR (MDRD) 220 (>89) 02/28/23 06:08 Glucose 91 mg/dL (74-104) 02/28/23 06:08 Lactic Acid 1.3 mmol/L (0.5-2.2) 02/27/23 10:59 Calcium 8.1 mg/dL (8.5-10.3) L 02/28/23 06:08 Magnesium 1.7 mg/dL (1.7-2.3) 02/27/23 10:59 Total Bilirubin 1.1 mg/dL (0.2-1.0) H 02/27/23 10:59 AST 25 IU/L (10-42) 02/27/23 10:59 ALT 20 IU/L (10-60) 02/27/23 10:59 Alkaline Phosphatase 104 IU/L (42-121) 02/27/23 10:59 Troponin I High Sens 238.4 ng/L (2.3-14.8) H* 02/27/23 21:37 B-Natriuretic Peptide 1222 pg/mL (5-100) H 02/27/23 15:36 Total Protein 7.6 g/dL (6.4-8.9) 02/27/23 10:59 Albumin 3.2 g/dL (3.2-5.5) 02/27/23 10:59 Globulin 4.4 g/dL (2.1-4.2) H 02/27/23 10:59 Albumin/Globulin Ratio 0.7 (1.0-2.2) L 02/27/23 10:59 Lipase 10 U/L (11-82) L 02/27/23 10:59 Urine Color YELLOW 02/27/23 13:42 Urine Clarity CLEAR (CLEAR) 02/27/23 13:42 Urine pH 6.0 PH (5.0-7.5) 02/27/23 13:42 Ur Specific Rhame 1.025 (1.002-1.030) 02/27/23 13:42 Urine Protein TRACE mg/dL (NEGATIVE) 02/27/23 13:42 Urine Glucose (UA) NEGATIVE mg/dL (NEGATIVE) 02/27/23 13:42 Urine Ketones 40 mg/dL (NEGATIVE) H 02/27/23 13:42 Urine Occult Blood NEGATIVE (NEGATIVE) 02/27/23 13:42 Urine Nitrite NEGATIVE (NEGATIVE) 02/27/23 13:42 Urine Bilirubin NEGATIVE (NEGATIVE) 02/27/23 13:42 Urine Urobilinogen 0.2 (NORMAL) E.U./dL (NORMAL) 02/27/23 13:42 Ur Leukocyte Esterase NEGATIVE (NEGATIVE) 02/27/23 13:42 Ur Microscopic Review NOT INDICATED 02/27/23 13:42 Urine Culture Comments NOT INDICATED 02/27/23 13:42 Nasal Adenovirus (PCR) NOT DETECTED 02/27/23 11:06 Nasal B. parapertussis DNA (PCR) NOT DETECTED 02/27/23 11:06 Nasal Coronavir 229E PCR NOT DETECTED 02/27/23 11:06 Nasal Coronavir HKU1 PCR NOT DETECTED 02/27/23 11:06 Nasal Coronavir NL63 PCR NOT DETECTED 02/27/23 11:06 Nasal Coronavir OC43 PCR NOT DETECTED 02/27/23 11:06 Nasal Enterovir/Rhinovir PCR NOT DETECTED 02/27/23 11:06 Nasal Influenza B PCR NOT DETECTED 02/27/23 11:06 Nasal Influenza A PCR NOT DETECTED 02/27/23 11:06 Nasal Parainfluen 1 PCR NOT DETECTED 02/27/23 11:06 Nasal Parainfluen 2 PCR NOT DETECTED 02/27/23 11:06 Nasal Parainfluen 3 PCR NOT DETECTED 02/27/23 11:06 Nasal Parainfluen 4 PCR NOT DETECTED 02/27/23 11:06 Nasal RSV (PCR) NOT DETECTED 02/27/23 11:06 Nasal B.pertussis DNA PCR NOT DETECTED 02/27/23 11:06 Nasal C.pneumoniae (PCR) NOT DETECTED 02/27/23 11:06 Rambo Human Metapneumo PCR NOT DETECTED 02/27/23 11:06 Nasal M.pneumoniae (PCR) NOT DETECTED 02/27/23 11:06 Nasal SARS-CoV-2 (PCR) NOT DETECTED 02/27/23 11:06
[2023-02-28 10:04] LABS: CALCIUM 8.2 mg/dL (8.5-10.3); CREATININE 0.2 mg/dL (0.6-1.3); POTASSIUM 3.5 mmol/L (3.5-4.5)
[2023-02-28] MEDS: HYDROmorphone 0.5 MG/0.5 ML SYRINGE IVP PRN ×2 (10:55→16:00)
--- NOTE | 2023-02-28 14:53 | PHARMACY PROGRESS NOTE ---
- Best Possible Medication History Admit Date and Time: 02/27/23 5572 Processed by: Pharmacy Medication History completed: Yes Patient Interview: Completed Secondary Source(s): Pharmacy records, Insurance records As the person ultimately responsible for medication therapy, providers are able to order a medication from an existing home medication list in [facility] via the "Reconcile Routine" prior to Confirmation of that medication by production support manager. Such practice is discouraged except when the physician, in their clinical judgment, deems that a medical need exists for a medication without regard to previous use.
[2023-02-28] MEDS ORDERED: cefTRIAXone 1 GM in SODIUM CHLORIDE 0.9% MINIBAG 100 ML IV SCH (15:00)
[2023-02-28] MEDS ORDERED: AZITHROMYCIN INJ 500 MG in SODIUM CHLORIDE 0.9% 250 ML IV SCH (16:00)
[2023-02-28] MEDS: PRENATAL VITAMIN TABLET PO SCH (16:45)
[2023-02-28] MEDS ORDERED: ASPIRIN EC 81 MG TABLET PO ONE (18:00)
[2023-02-28] MEDS: ATORVASTATIN 40 MG TABLET PO SCH (21:48)
[2023-02-28] MEDS: sulfaSALAzine 500 MG TABLET PO SCH (21:48)
[2023-02-28] MEDS: METOPROLOL SUCCINATE 25 MG TABLET PO SCH (21:48)
[2023-02-28] MEDS: FAMOTIDINE 20 MG TABLET PO SCH (21:48)
[2023-02-28] MEDS: DICLOFENAC SODIUM DR 75 MG TABLET PO SCH (21:49)
[2023-02-28] MEDS: ENOXAPARIN 40 MG/0.4 ML SYRINGE SUBQ SCH (21:49)
[2023-03-01] MEDS: SODIUM CHLORIDE FLUSH 0.9% 10 ML SYRINGE IVP SCH ×4 (00:27→18:09)
[2023-03-01 06:06] LABS: HCT - HEMATOCRIT 40.3 % (37.0-47.0); HGB - HEMOGLOBIN 13.1 g/dL (12.0-16.0); LYMPHOCYTES # (AUTO) 0.9 10^3/uL (1.5-3.5); LYMPHOCYTES % (AUTO) 25.7 %; MEAN CORPUSCULAR HEMOGLOBIN 30.6 pg (27.0-31.0); MEAN CORPUSCULAR HGB CONC 32.5 g/dL (32.0-36.0); MEAN CORPUSCULAR VOLUME 94.2 fL (81.0-99.0); MEAN PLATELET VOLUME 10.6 fL (7.9-10.8); MONOCYTES # (AUTO) 0.3 10^3/uL (0.0-1.0); MONOCYTES % (AUTO) 9.5 %; NEUTROPHILS # (AUTO) 2.2 10^3/uL (1.5-6.6); NEUTROPHILS % (AUTO) 64.2 %; PLT - PLATELET COUNT 118 10^3/uL (130-450); RED BLOOD COUNT 4.28 10^6/uL (4.20-5.40); RED CELL DISTRIBUTION WIDTH 13.6 % (12.0-15.0); WHITE BLOOD COUNT 3.4 x10^3/uL (4.8-10.8)
[2023-03-01 06:25] LABS: CALCIUM 8.6 mg/dL (8.5-10.3); CHOL/HDL RATIO 2.5 (<4.4); CHOLESTEROL 114 mg/dL; CREATININE 0.3 mg/dL (0.6-1.3); HDL CHOLESTEROL 45 mg/dL; LDL CHOLESTEROL,CALCULATED 50 mg/dL; LDL/HDL RATIO 1.1 (<4.4); MAGNESIUM 1.8 mg/dL (1.7-2.3); PHOSPHORUS 2.8 mg/dL (2.5-5.0); POTASSIUM 4.4 mmol/L (3.5-4.5); TRIGLYCERIDES 95 mg/dL (48-352); VLDL CHOLESTEROL 19 mg/dL
[2023-03-01] MEDS ORDERED: MULTIVITAMIN TABLET PO SCH (08:00)
[2023-03-01] MEDS ORDERED: ERGOCALCIFEROL 50,000 UNIT CAPSULE PO ONE (08:30)
[2023-03-01] MEDS ORDERED: amLODIPine 5 MG TABLET PO SCH (09:00)
[2023-03-01] MEDS: FAMOTIDINE 20 MG TABLET PO SCH ×2 (09:01→20:53)
[2023-03-01] MEDS: sulfaSALAzine 500 MG TABLET PO SCH ×2 (09:01→20:53)
[2023-03-01] MEDS: CYANOCOBALAMIN 500 MCG TABLET PO SCH (09:01)
[2023-03-01] MEDS: ASPIRIN EC 81 MG TABLET PO SCH (09:01)
[2023-03-01] MEDS: PRENATAL VITAMIN TABLET PO SCH (09:01)
[2023-03-01] MEDS: METOPROLOL SUCCINATE 25 MG TABLET PO SCH ×2 (09:02→20:51)
[2023-03-01] MEDS: ENOXAPARIN 40 MG/0.4 ML SYRINGE SUBQ SCH ×2 (09:02→20:53)
[2023-03-01] MEDS: amLODIPine 5 MG TABLET PO SCH (09:02)
[2023-03-01] MEDS: DICLOFENAC SODIUM DR 75 MG TABLET PO SCH ×2 (09:03→20:53)
[2023-03-01] MEDS ORDERED: AZITHROMYCIN 250 MG TABLET PO ONE (11:00)
--- NOTE | 2023-03-01 11:20 | PROVIDER PROGRESS NOTE ---
Subjective - Prog Note Date Prog Note Date: 03/01/23 Prog Note Time: 11:18 - Subjective Pt reports feeling: Improved Subjective: Jonathan is a 72 year old female who smokes daily, with a history of peripheral vascular disease and chronic back pain who was admitted 2 days ago for increasingly progressive back pain that forced her to be bed bound. As a result, patient has not eaten or drank anything for the past few days. She also complained of a wet cough with tachycardia (125 bpm) and a decreased oxygen saturation of 91%. In the ER, a chest XR was done that showed bilateral pleural effusions with concerns of infection, R > L. Patient was started on duoneb treatment and O2 supplementation at 2L NC. CT pulmonary angiogram showed no sign of PE. She was started on a combination of Ceftriaxone and azithromycin. Imaging of the lumbar spine was limited due to patient position. Multilevel degenerative changes seen contributing to osseous spinal canal and foraminal narrowing with exaggerated kyphosis at the level of wedge deformity T12. Multilevel wedge deformities were noted and believed to be chronic in nature. Resolution of vacuum disc phenomena at the thoracolumbar junction suggest that there may be some acute on chronic inflammatory changes when comparing results to previous imaging. EKG showed NSTEMI with an elvated troponin at [address] Hoffmann (cardiology) from [facility] was consulted. He recommended an echo and medical management. Patient was started on Lovenox and a statin in the meantime. Currently, patient is doing well with no complaints. She denies any chest pain, shortness of breath, lightheadedness, or dizziness. Appetite is intact and no changes in bowel movements. She is waiting for her echo today. Objective - Vital Signs/Intake & Output Vital Signs: Vital Signs x48h Temp Pulse Resp BP Pulse Ox O2 Flow Rate 03/01/23 08:00 2 03/01/23 07:59 36.3 C L 65 18 122/76 96 2 03/01/23 05:26 36.5 C 72 18 136/84 H 96 2 Intake & Output: Intake & Output 02/26/23 02/27/23 02/28/23 03/01/23 23:59 23:59 23:59 23:59 Intake Total 2400 1370 120 Output Total 200 250 Balance 2400 1170 -130 - Objective General Appearance: positive: Alert, Mild distress, Other (Cachexic, patient is extremely malnourished with BMI 13.8) Eyes Bilateral: positive: Normal inspection, PERRL, EOMI ENT: positive: No signs of dehydration Neck: positive: Thyroid nml, No JVD, Trachea midline Respiratory: positive: Chest non-tender Cardiovascular: positive: Regular rate & rhythm, No murmur, No gallop Abdomen: positive: Non-tender, No distention Skin: positive: No rash, Warm, Dry Extremities: positive: Non-tender, Full ROM, Nml appearance Neurologic/Psychiatric: positive: Oriented x3 - Lab Results Fish Bones: 03/01/23 05:15 03/01/23 05:15 Other Labs: Lab Results x24hrs 03/01/23 03/01/23 03/01/23 Range/Units 05:15 05:15 05:15 WBC 3.4 L (4.8-10.8) x10^3/uL RBC 4.28 (4.20-5.40) 10^6/uL Hgb 13.1 (12.0-16.0) g/dL Hct 40.3 (37.0-47.0) % MCV 94.2 (81.0-99.0) fL MCH 30.6 (27.0-31.0) pg MCHC 32.5 (32.0-36.0) g/dL RDW 13.6 (12.0-15.0) % Plt Count 118 L (130-450) 10^3/uL MPV 10.6 (7.9-10.8) fL Neut # (Auto) 2.2 (1.5-6.6) 10^3/uL Lymph # (Auto) 0.9 L (1.5-3.5) 10^3/uL Gordon # (Auto) 0.3 (0.0-1.0) 10^3/uL Eos # (Auto) 0.0 (0.0-0.7) 10^3/uL Baso # (Auto) 0.0 (0.0-0.1) 10^3/uL Absolute Nucleated RBC 0.00 x10^3/uL Nucleated RBC % 0.0 /100WBC Sodium 130 L (135-145) mmol/L Potassium 4.4 (3.5-4.5) mmol/L Chloride 97 L (101-111) mmol/L Carbon Dioxide 32 (21-32) mmol/L Anion Gap 1.0 L (6-13) BUN 10 (6-20) mg/dL Creatinine 0.3 L (0.6-1.3) mg/dL Estimated GFR (MDRD) 220 (>89) Glucose 102 (74-104) mg/dL Calcium 8.6 (8.5-10.3) mg/dL Phosphorus 2.8 (2.5-5.0) mg/dL Magnesium 1.8 (1.7-2.3) mg/dL Triglycerides 95 (48-352) mg/dL Cholesterol 114 ( - 200) mg/dL LDL Cholesterol, Calc 50 ( - 129) mg/dL VLDL Cholesterol 19 mg/dL HDL Cholesterol 45 L (60 - ) mg/dL LDL/HDL Ratio 1.1 (<4.4) Cholesterol/HDL Ratio 2.5 (<4.4) Vitamin B12 (180-914) pg/mL Vitamin D 25-Hydroxy (30.0-100.0) ng/mL Folate (5.90 - >24.8) ng/mL 02/28/23 02/27/23 Range/Units 09:25 10:59 WBC (4.8-10.8) x10^3/uL RBC (4.20-5.40) 10^6/uL Hgb (12.0-16.0) g/dL Hct (37.0-47.0) % MCV (81.0-99.0) fL MCH (27.0-31.0) pg MCHC (32.0-36.0) g/dL RDW (12.0-15.0) % Plt Count (130-450) 10^3/uL MPV (7.9-10.8) fL Neut # (Auto) (1.5-6.6) 10^3/uL Lymph # (Auto) (1.5-3.5) 10^3/uL Gordon # (Auto) (0.0-1.0) 10^3/uL Eos # (Auto) (0.0-0.7) 10^3/uL Baso # (Auto) (0.0-0.1) 10^3/uL Absolute Nucleated RBC x10^3/uL Nucleated RBC % /100WBC Sodium (135-145) mmol/L Potassium (3.5-4.5) mmol/L Chloride (101-111) mmol/L Carbon Dioxide (21-32) mmol/L Anion Gap (6-13) BUN (6-20) mg/dL Creatinine (0.6-1.3) mg/dL Estimated GFR (MDRD) (>89) Glucose (74-104) mg/dL Calcium (8.5-10.3) mg/dL Phosphorus (2.5-5.0) mg/dL Magnesium (1.7-2.3) mg/dL Triglycerides (48-352) mg/dL Cholesterol ( - 200) mg/dL LDL Cholesterol, Calc ( - 129) mg/dL VLDL Cholesterol mg/dL HDL Cholesterol (60 - ) mg/dL LDL/HDL Ratio (<4.4) Cholesterol/HDL Ratio (<4.4) Vitamin B12 266 (180-914) pg/mL Vitamin D 25-Hydroxy 5.0 L (30.0-100.0) ng/mL Folate 7.6 (5.90 - >24.8) ng/mL ABX Reporting Has patient been on IV antibiotics over the past 48 hours?: Yes Assessment/Plan - Problem List (1) Acute non-ST elevation myocardial infarction (NSTEMI) Impression: EKG on admission showed significant deep T wave inversions in leads V4-V6 and an elevated troponin at 304. Stack [address] Dr. Hoffmann from [facility] was consulted and he recommended an echo + medical management. Catheterization not needed immediately. Repeat troponin at 328. Repeat EKG showed more extensive T wave inversion. Fasting lipid panel was unremarkable. - Complete echo today - Continue on Lovenox - Continue on daily dose of ASA for PVD - Continue on statin therapy - Continue on metoprolol (2) Acute respiratory failure with hypoxia Impression: Patient requires supplemental O2 at 2 L NC. Without supplementation, patient de- saturates to mid 80's on room air. We believe this is due to underlying COPD with COPD exacerbation in conjunction with her pneumonia. chest XR and chest CT did not show CHF. CTA negative for PE. Patient did have an acute IL and cardio logy was consulted. - Continue on supplemental O2 with target saturation of 90% or above - Treat underlying causes (3) Pneumonia Impression: Chest XR showed bilateral infiltrates. This is consistent with patient's shortness of breath, dyspnea, and hypoxia on room air. - Will move patient to Augmentin BID - remain on supplemental oxygen to maintain O2 sats above 90% Qualifiers: Pneumonia type: due to unspecified organism Laterality: bilateral Lung location: lower lobe of lung Qualified Code(s): J18.9 - Pneumonia, unspecified organism (4) COPD with exacerbation Impression: Patient has not had formal COPD work up and diagnosis but is being treated for presumed COPD given her long history of tobacco use. - continue on duoneb treatments as needed - continue n montelukast - continue on IV and inhaled steroids - Will discuss smoking cessation with patient - Will discuss outpatient pulmonology consult (5) Thoracic compression fracture Impression: Review of previous imaging show chronic multi-level wedge deformities, consistent with longstanding history of back pain. - Pain management with tylenol and dilaudid - Continue with PT/OT - Start vitamin D + calcium supplementation - Start Zometa for bone loss Qualifiers: Encounter type: initial encounter Thoracic vertebra fracture level: T7 Qualified Code(s): S22.060A - Wedge compression fracture of T7-T8 vertebra, initial encounter for closed fracture (6) Malnourished Impression: Patient is severely malnourished with a BMI of 13. She has lost 20% of her weight in 2 months and her dentures no longer fit due to the weight loss. Her decreased appetite is multifactorial, likely due to a combination of depression, grief, pain, and adjustment disorder as her a few months ago. Patient lives alone and has a caregiver 1x a week to help prepare food. Surgery was consulted for an EGD, however patient refused the procedure. As a result of severe malnutrition, patient has generalized weakness. She has a hard time sitting up for extended periods of time. PT/OT consultation was held yesterday due to her NSTEMI but she will have an evaluation with them today to determine if short term rehab is needed. - Consult with nutrition - Continue on soft and pureed foods/liquids - Consult with social work to determine if a different care plan is necessary (7) PVD (peripheral vascular disease) Impression: Patient has a history of recurrent leg wounds and underwent stenting of the L leg in 09/2022 with significant healing and improvement. Denies any pain, swelling, numbness, or tingling. - Continue on daily ASA (8) Rheumatoid arthritis flare Impression: Patient has a history of rheumatoid arthritis. We believe she is currently having a RA flare. - Continue on home medication, Sulfasalazine - Patient is already scheduled for a follow up next month (9) Smoker Impression: Patient reports smoking 1/2 ppd but has not smoked for about 5 days prior to admission to the hospital. She declined a nicotine patch when asked but is interested in quitting. - Cessation counseling (10) Dehydration Impression: Patient's last sodium was measured at 130 today. Patient will continue on IV fluids. - IV fluids as needed
[2023-03-01] MEDS: HYDROmorphone 0.5 MG/0.5 ML SYRINGE IVP PRN ×2 (15:04→18:07)
--- NOTE | 2023-03-01 15:07 | CONSULTATION NOTE ---
Surgery Consult - Admit Date Hospital Admission Date: 02/27/23 - Home Meds/Allergies Home Medications: Patient History Medication Instructions Recorded Confirmed Amlodipine Besylate [Norvasc] 10 mg PO DAILY 12/27/22 02/28/[address] [Voltaren] 75 mg PO BID 12/27/22 02/28/23 sulfaSALAzine [Sulfasalazine] 1,000 mg PO BID 12/27/22 02/28/23 Aspirin [Aspirin EC] 81 mg PO DAILY 02/27/23 02/28/23 Acetaminophen [Pain Relief Extra 500 mg PO Q6H PRN 02/28/23 02/28/23 Strength] Multivitamin 1 tab PO DAILY 02/28/23 02/28/23 Allergies/Adverse Reactions: Allergies Allergy/AdvReac Type Severity Reaction Status Date / Time hydrochlorothiazide Allergy Anaphylaxis Verified 02/27/23 11:03 hydroxychloroquine Allergy Anaphylaxis Verified 02/27/23 11:03 ibuprofen AdvReac Nausea Verified 02/27/23 11:03 Optifoam Allergy Rash Uncoded 02/27/23 11:03 coban AdvReac Hives Uncoded 02/27/23 11:03 - Vital Signs Vital Signs: Last Vital Signs Temp 98.1 F 03/01/23 13:28 Pulse 62 03/01/23 13:28 Resp 20 03/01/23 13:28 BP 116/74 03/01/23 13:28 Pulse Ox 96 03/01/23 13:28 O2 Flow Rate 2 03/01/23 13:28 Intake & Output: Intake & Output 02/26/23 02/27/23 02/28/23 03/01/23 23:59 23:59 23:59 23:59 Intake Total 2400 1370 360 Output Total 200 250 Balance 2400 1170 110 - Lab Results Result Diagrams: 03/01/23 05:15 03/01/23 05:15 - Consultation Note Consultation Note: General Surgery Progress Note I was asked to evaluate Jonathan Brennan for possible upper endoscopy to manage what may be a partial esophageal obstruction. The patient has lost 70 pounds over the last several months and is only able to swallow liquids and pureed foods. T wo days ago she had trouble swallowing which prompted the surgical consult. When I saw her yesterday, she was sitting up and ingesting pureed food without issue and she explained that her trouble the day before was due to her attempt to swallow lying down. She was not interested in upper endoscopy. I explained to her our concerns that she was not eating solid foods and that I would revisit this issue today. This morning she was tolerating a pureed diet. She has no teeth and continues to reject the idea of a diagnostic, possibly therapeutic upper endoscopy. I informed her Medical Hospitalist (Dr. Francois) of the patient's decision. Keon tristan MD, [facility] General Surgery Service
[2023-03-01] MEDS: AMOX/CLAV 875 MG/125 MG TABLET PO SCH (15:45)
[2023-03-01] MEDS: ATORVASTATIN 40 MG TABLET PO SCH (20:52)
[2023-03-02] MEDS: SODIUM CHLORIDE FLUSH 0.9% 10 ML SYRINGE IVP SCH ×3 (01:14→16:07)
[2023-03-02] MEDS: PRENATAL VITAMIN TABLET PO SCH (09:06)
[2023-03-02] MEDS: CYANOCOBALAMIN 500 MCG TABLET PO SCH (09:06)
[2023-03-02] MEDS: ASPIRIN EC 81 MG TABLET PO SCH (09:06)
[2023-03-02] MEDS: AMOX/CLAV 875 MG/125 MG TABLET PO SCH ×2 (09:06→20:43)
[2023-03-02] MEDS: sulfaSALAzine 500 MG TABLET PO SCH ×2 (09:06→20:42)
[2023-03-02] MEDS: FAMOTIDINE 20 MG TABLET PO SCH ×2 (09:06→20:43)
[2023-03-02] MEDS: METOPROLOL SUCCINATE 25 MG TABLET PO SCH ×2 (09:06→20:43)
[2023-03-02] MEDS: ENOXAPARIN 40 MG/0.4 ML SYRINGE SUBQ SCH ×2 (09:07→20:42)
[2023-03-02] MEDS: amLODIPine 5 MG TABLET PO SCH (09:07)
--- NOTE | 2023-03-02 09:09 | PROVIDER PROGRESS NOTE ---
Subjective - Prog Note Date Prog Note Date: 03/02/23 Prog Note Time: 09:06 - Subjective Pt reports feeling: Worse Subjective: Jonathan is a 72 year old female who smokes daily, with a history of peripheral vascular disease and chronic back pain who was admitted 2 days ago for increasingly progressive back pain that forced her to be bed bound. As a result, patient has not eaten or drank anything for the past few days. She also co mplained of a wet cough with tachycardia (125 bpm) and a decreased oxygen saturation of 91%. In the ER, a chest XR was done that showed bilateral pleural effusions with concerns of infection, R > L. Patient was started on duoneb treatment and O2 supplementation at 2L NC. CT pulmonary angiogram showed no sign of PE. She was started on a combination of Ceftriaxone and azithromycin. Imaging of the lumbar spine was limited due to patient position. Multilevel degenerative changes seen contributing to osseous spinal canal and foraminal narrowing with exaggerated kyphosis at the level of wedge deformity T12. Multilevel wedge deformities were noted and believed to be chronic in nature. Resolution of vacuum disc phenomena at the thoracolumbar junction suggest that there may be some acute on chronic inflammatory changes when comparing results to previous imaging. EKG showed NSTEMI with an elevated troponin at [address] Hoffmann (cardiology) from [facility] was consulted. He recommended an echo and medical management. Patient was started on Lovenox and a statin in the meantime. 03/01/22: Echo showed the left and right ventricle are of normal size. There is mild mitral regurgitation. There is mild tricuspid regurgitation. The left ventricle wall thickness is normal. Apical segments are akinetic. Overall Left ventricular systolic function is mildly impaired with an ejection fraction of 40-45%. There is moderately abnormal right sided pressure. RVSP at rest is 51 mmHg. She also had a surgical consultation with Dr. Munguia for a possible EGD given her dysphagia but refused the procedure. Currently, patient reports increased fatigue and back pain. She continues to h ave a decreased appetite and choked on her eggs this morning. As a result, she skipped the rest of breakfast and will try to eat again at lunch. Patient will consider an EGD if her swallowing does not improve over the next few days. Denies any chest pain, shortness of breath, lightheadedness, or dizziness. She has not had a bowel movement in the past few days but believes this is due to her limited PO intake. Objective - Vital Signs/Intake & Output Reviewed Vital Signs: Yes Vital Signs: Vital Signs x48h Temp Pulse Resp BP Pulse Ox 03/02/23 05:00 36.7 C 65 15 129/79 97 Intake & Output: Intake & Output 02/27/23 02/28/23 03/01/23 03/02/23 23:59 23:59 23:59 23:59 Intake Total 2400 1370 385 Output Total 200 300 150 Balance 2400 1170 85 -150 - Objective General Appearance: positive: Alert, Mild distress Eyes Bilateral: positive: Normal inspection, PERRL, EOMI ENT: positive: No signs of dehydration Neck: positive: Nml inspection, No JVD, Trachea midline Respiratory: positive: Chest non-tender Cardiovascular: positive: Regular rate & rhythm, No murmur, No gallop Abdomen: positive: Non-tender, No distention Back: positive: Nml inspection Skin: positive: Color nml, No rash, Warm, Dry Extremities: positive: Non-tender, Full ROM, Nml appearance Neurologic/Psychiatric: positive: Oriented x3 - Lab Results Fish Bones: 03/01/23 05:15 03/01/23 05:15 Other Labs: Lab Results x24hrs 03/01/23 Range/Units 14:41 Troponin I High Sens 101.2 H* (2.3-14.8) ng/L Assessment/Plan - Problem List (1) Acute non-ST elevation myocardial infarction (NSTEMI) Impression: EKG on admission showed significant deep T wave inversions in leads V4-V6 and an elevated troponin at 304. Concrete Sm[address]other Dr. Hoffmann from [facility] was consulted and he recommended an echo + medical management. Catheterization not needed immediately. Repeat troponin on 03/01 at 101.2. Echo showed:Mild mitral and tricuspid regurgitation. Left ventricular systolic function is mildly impaired with an ejection fraction of 40-45%. There is moderately abnormal right sided pressure. RVSP at rest is 51 mmHg. Will consult with [facility] title supervisor about transferring. She will need a stress test and angiogram in the meantime and she is still susceptible to a repeat ID. - Consult with [facility] title supervisor - Continue on Lovenox - Continue on daily dose of ASA for PVD - Continue on statin therapy - Continue on metoprolol (2) Acute respiratory failure with hypoxia Impression: Patient requires supplemental O2 at 2 L NC. Without supplementation, patient de-saturates to mid 80's on room air. We believe this is due to underlying COPD with COPD exacerbation in conjunction with her pneumonia. chest XR and chest CT did not show CHF. CTA negative for PE. Patient did have an acute ID and cardiology was consulted. - Continue on supplemental O2 with target saturation of 90% or above - Treat underlying causes (3) Pneumonia Impression: Chest XR showed bilateral infiltrates. This is consistent with patient's shortness of breath, dyspnea, and hypoxia on room air. - Continue on Augmentin BID - remain on supplemental oxygen to maintain O2 sats above 90% Qualifiers: Pneumonia type: due to unspecified organism Laterality: bilateral Lung location: lower lobe of lung Qualified Code(s): J18.9 - Pneumonia, unspecified organism (4) COPD with exacerbation Impression: Patient has not had formal COPD work up and diagnosis but is being treated for presumed COPD given her long history of tobacco use. - continue on duoneb treatments as needed - continue n montelukast - continue on IV and inhaled steroids - Will discuss smoking cessation with patient - Will discuss outpatient pulmonology consult (5) Thoracic compression fracture Impression: Review of previous imaging show chronic multi-level wedge deformities, consist ent with longstanding history of back pain. - Pain management with tylenol and dilaudid - Continue with PT/OT - Start vitamin D + calcium supplementation - Start Zometa for bone loss Qualifiers: Encounter type: initial encounter Thoracic vertebra fracture level: T7 Qualified Code(s): S22.060A - Wedge compression fracture of T7-T8 vertebra, initial encounter for closed fracture (6) Malnourished Impression: Patient is severely malnourished with a BMI of 13. She has lost 20% of her weight in 2 months and her dentures no longer fit due to the weight loss. Her decreased appetite is multifactorial, likely due to a combination of depression, grief, pain, and adjustment disorder as her a few months ago. Patient lives alone and has a caregiver 1x a week to help prepare food. Surgery was consulted for an EGD, however patient refused the procedure. As a result of severe malnutrition, patient has generalized weakness. She has a hard time sitting up for extended periods of time. PT/OT consultation was held yesterday due to her NSTEMI but she will have an evaluation with them today to determine if short term rehab is needed. - Consult with nutrition - Consider EGD if dysphagia continues - Continue on soft and pureed foods/liquids - Consult with social work to determine if a different care plan is necessary (7) PVD (peripheral vascular disease) Impression: Patient has a history of recurrent leg wounds and underwent stenting of the L leg in 09/2022 with significant healing and improvement. Denies any pain, swelling, numbness, or tingling. - Continue on daily ASA (8) Rheumatoid arthritis flare Impression: Patient has a history of rheumatoid arthritis. We believe she is currently having a RA flare. - Continue on home medication, Sulfasalazine - Patient is already scheduled for a follow up next month (9) Smoker Impression: Patient reports smoking 1/2 ppd but has not smoked for about 5 days prior to admission to the hospital. She declined a nicotine patch when asked but is interested in quitting. - Cessation counseling (10) Dehydration Impression: Patient's last sodium was measured at 130 on 03/01. Patient will continue on IV fluids. - IV fluids as needed
[2023-03-02] MEDS: HYDROmorphone 0.5 MG/0.5 ML SYRINGE IVP PRN (09:19)
[2023-03-02] MEDS: DICLOFENAC SODIUM DR 75 MG TABLET PO SCH ×2 (09:19→20:43)
[2023-03-02] MEDS: ACETAMINOPHEN 325 MG TABLET PO PRN (16:07)
[2023-03-02] MEDS: ATORVASTATIN 40 MG TABLET PO SCH (20:42)
[2023-03-03] MEDS: ACETAMINOPHEN 325 MG TABLET PO PRN (00:33)
[2023-03-03] MEDS: SODIUM CHLORIDE FLUSH 0.9% 10 ML SYRINGE IVP SCH ×3 (00:33→17:26)
--- NOTE | 2023-03-03 07:58 | PROVIDER PROGRESS NOTE ---
Subjective - Prog Note Date Prog Note Date: 03/03/23 Prog Note Time: 07:57 - Subjective Pt reports feeling: No change Subjective: Jonathan is a 72 year old female who smokes daily, with a history of peripheral vascular disease and chronic back pain who was admitted 2 days ago for increasingly progressive back pain that forced her to be bed bound. As a result, patient has not eaten or drank anything for the past few days. She also complained of a wet cough with tachycardia (125 bpm) and a decreased oxygen saturation of 91%. In the ER, a chest XR was done that showed bilateral pleural effusions with concerns of infection, R > L. Patient was started on duoneb treatment and O2 supplementation at 2L NC. CT pulmonary angiogram showed no sign of PE. She was started on a combination of Ceftriaxone and azithromycin. Imaging of the lumbar spine was limited due to patient position. Multilevel degenerative changes seen contributing to osseous spinal canal and foraminal narrowing with exaggerated kyphosis at the level of wedge deformity T12. Multilevel wedge deformities were noted and believed to be chronic in nature. Resolution of vacuum disc phenomena at the thoracolumbar junction suggest that there may be some acute on chronic inflammatory changes when comparing results to previous imaging. EKG showed NSTEMI with an elevated troponin at [address] Hoffmann (cardiology) from [facility] was consulted. He recommended an echo and medical management. Patient was started on Lovenox and a statin in the meantime. 03/01/22: Echo showed the left and right ventricle are of normal size. There is mild mitral regurgitation. There is mild tricuspid regurgitation. The left ventricle wall thickness is normal. Apical segments are akinetic. Overall Left ventricular systolic function is mildly impaired with an ejection fraction of 40-45%. There is moderately abnormal right sided pressure. RVSP at rest is 51 mmHg. She also had a surgical consultation with Dr. Munguia for a possible EGD given her dysphagia but refused the procedure. 03/02/22: Dr. Cherry at [facility] agreed that patient should be transferred for higher level of care. However, there are no openings at any nearby hospital for her at this time. Currently, patient reports continued fatigue and back pain. She is having a hard time sleeping due to interruptions throughout the night. She is reluctant to undergo an EGD but has agreed given her swallowing and appetite has not improved. Denies any chest pain, lightheadedness, or dizziness. Objective - Vital Signs/Intake & Output Vital Signs: Vital Signs x48h Temp Pulse Resp BP Pulse Ox O2 Flow Rate 03/03/23 07:49 36.5 C 76 20 151/93 H 96 2 03/03/23 05:24 36.6 C 75 22 136/88 H 97 2 03/03/23 00:38 36.5 C 77 20 125/81 H 95 2 Intake & Output: Intake & Output 02/28/23 03/01/23 03/02/23 03/03/23 23:59 23:59 23:59 23:59 Intake Total 1370 385 540 Output Total 591 684 6403 300 Balance 1170 85 -710 -300 - Objective General Appearance: positive: No acute distress, Alert Eyes Bilateral: positive: Normal inspection, PERRL, EOMI ENT: positive: No signs of dehydration Neck: positive: Nml inspection, No JVD, Trachea midline Respiratory: positive: Chest non-tender, Other (SOB when speaking for too long, on 2L NC) Cardiovascular: positive: Regular rate & rhythm, No murmur, No gallop Abdomen: positive: Non-tender, No distention Back: positive: Nml inspection Skin: positive: Color nml, No rash, Warm, Dry Extremities: positive: Non-tender, Full ROM, Nml appearance Neurologic/Psychiatric: positive: Oriented x3 - Lab Results Fish Bones: 03/01/23 05:15 03/01/23 05:15 ABX Reporting Has patient been on IV antibiotics over the past 48 hours?: No Assessment/Plan - Problem List (1) Acute non-ST elevation myocardial infarction (NSTEMI) Impression: EKG on admission showed significant deep T wave inversions in leads V4-V6 and an elevated troponin at 304. Bench Precision [employer]er Dr. Hoffmann from [facility] was consulted and he recommended an echo + medical management. Catheterization not needed immediately. Repeat troponin on 03/01 at 101.2. Echo showed: Mild mitral and tricuspid regurgitation. Left ventricular systolic function is mildly impaired with an ejection fraction of 40-45%. There is moderately abnormal right sided pressure. RVSP at rest is [address] Hoffmann agreed that higher level of care is needed. However, there are no open beds in the surrounding area. She will still need a stress test and angiogram in the outpatient setting. - Will wait for open bed to transfer patient to higher level of care - Continue on Lovenox - Continue on daily dose of ASA for PVD - Continue on statin therapy - Continue on metoprolol (2) Acute respiratory failure with hypoxia Impression: Patient requires supplemental O2 at 2 L NC. Without supplementation, patient de- saturates to mid 80's on room air. We believe this is due to underlying COPD with COPD exacerbation in conjunction with her pneumonia. chest XR and chest CT did not show CHF. CTA negative for PE. Patient did have an acute SC and cardiology was consulted. We are waiting for an open bed at a higher level of care facility. - Continue on supplemental O2 with target saturation of 90% or above - Treat underlying causes (3) Malnourished Impression: Patient is severely malnourished with a BMI of 13. She has lost 20% of her weight in 2 months and her dentures no longer fit due to the weight loss. Her decreased appetite is multifactorial, likely due to a combination of depression, grief, pain, and adjustment disorder as her a few months ago. Patient lives alone and has a caregiver 1x a week to help prepare food. Surgery was consulted for an EGD and we are in the process of working with anastshylaia to see if patient can have the procedure here. As a result of severe malnutrition, patient has generalized weakness. She has a hard time sitting up for extended periods of time. PT/OT has been consulted. Patient is also working with nutritin services. If her intake continues to be limited, we may need to discuss a PEG tube. - Follow diet per rotary saw operator - Consider PEG tube if PO intake continues to be limited - Consider EGD if dysphagia continues - Continue on soft and pureed foods/liquids - Consult with social work to determine if a different care plan is necessary (4) Pneumonia Impression: Chest XR showed bilateral infiltrates. This is consistent with patient's shortness of breath, dyspnea, and hypoxia on room air. - Continue on Augmentin BID - remain on supplemental oxygen to maintain O2 sats above 90% Qualifiers: Pneumonia type: due to unspecified organism Laterality: bilateral Lung location: lower lobe of lung Qualified Code(s): J18.9 - Pneumonia, unspecified organism (5) COPD with exacerbation Impression: Patient has not had formal COPD work up and diagnosis but is being treated for presumed COPD given her long history of tobacco use. - continue on duoneb treatments as needed - continue on montelukast - continue on IV and inhaled steroids - Will discuss smoking cessation with patient - Will discuss outpatient pulmonology consult (6) Thoracic compression fracture Impression: Review of previous imaging show chronic multi-level wedge deformities, consistent with longstanding history of back pain. - Pain management with tylenol and dilaudid - Continue with PT/OT - Continue on vitamin D + calcium supplementation - Continue on Zometa for bone loss Qualifiers: Encounter type: initial encounter Thoracic vertebra fracture level: T7 Qualified Code(s): S22.060A - Wedge compression fracture of T7-T8 vertebra, initial encounter for closed fracture (7) PVD (peripheral vascular disease) Impression: Patient has a history of recurrent leg wounds and underwent stenting of the L leg in 09/2022 with significant healing and improvement. Denies any pain, swelling, numbness, or tingling. - Continue on daily ASA (8) Rheumatoid arthritis flare Impression: Patient has a history of rheumatoid arthritis. We believe she is currently having a RA flare. - Continue on home medication, Sulfasalazine - Patient is already scheduled for a follow up next month (9) Smoker Impression: Patient reports smoking 1/2 ppd but has not smoked for about 5 days prior to admission to the hospital. She declined a nicotine patch when asked but is interested in quitting. - Cessation counseling (10) Dehydration Impression: Patient's last sodium was measured at 130 on 03/01. Patient will continue on IV fluids. - IV fluids as needed
[2023-03-03] MEDS: ENOXAPARIN 40 MG/0.4 ML SYRINGE SUBQ SCH ×2 (08:37→21:08)
[2023-03-03] MEDS: AMOX/CLAV 875 MG/125 MG TABLET PO SCH ×2 (08:37→21:08)
[2023-03-03] MEDS: sulfaSALAzine 500 MG TABLET PO SCH ×2 (08:37→21:07)
[2023-03-03] MEDS: CYANOCOBALAMIN 500 MCG TABLET PO SCH (08:38)
[2023-03-03] MEDS: METOPROLOL SUCCINATE 25 MG TABLET PO SCH ×2 (08:38→21:08)
[2023-03-03] MEDS: PRENATAL VITAMIN TABLET PO SCH (08:38)
[2023-03-03] MEDS: amLODIPine 5 MG TABLET PO SCH (08:38)
[2023-03-03] MEDS: ASPIRIN EC 81 MG TABLET PO SCH (08:38)
[2023-03-03] MEDS: FAMOTIDINE 20 MG TABLET PO SCH ×2 (08:38→21:08)
[2023-03-03] MEDS: DICLOFENAC SODIUM DR 75 MG TABLET PO SCH ×2 (08:38→21:08)
[2023-03-03] MEDS: ATORVASTATIN 40 MG TABLET PO SCH (21:08)
[2023-03-03] MEDS: HYDROmorphone 0.5 MG/0.5 ML SYRINGE IVP PRN (21:13)
[2023-03-04] MEDS: SODIUM CHLORIDE FLUSH 0.9% 10 ML SYRINGE IVP SCH ×3 (00:01→16:12)
[2023-03-04] MEDS: HYDROmorphone 0.5 MG/0.5 ML SYRINGE IVP PRN ×3 (05:46→21:28)
[2023-03-04] MEDS: SODIUM CHLORIDE FLUSH 0.9% 10 ML SYRINGE IVP PRN (05:47)
--- NOTE | 2023-03-04 07:49 | PROVIDER PROGRESS NOTE ---
<Alisha Tejeda - Last Filed: 03/04/23 14:50> Subjective - Prog Note Date Prog Note Date: 03/04/23 Prog Note Time: 07:48 - Subjective Pt reports feeling: Improved Subjective: Jonathan is a 72 year old female who smokes daily, with a history of peripheral vascular disease and chronic back pain who was admitted 2 days ago for increasingly progressive back pain that forced her to be bed bound. As a result, patient has not eaten or drank anything for the past few days. She also complained of a wet cough with tachycardia (125 bpm) and a decreased oxygen saturation of 91%. In the ER, a chest XR was done that showed bilateral pleural effusions with concerns of infection, R > L. Patient was started on duoneb treatment and O2 supplementation at 2L NC. CT pulmonary angiogram showed no sign of PE. She was started on a combination of Ceftriaxone and azithromycin. Imaging of the lumbar spine was limited due to patient position. Multilevel degenerative changes seen contributing to osseous spinal canal and foraminal narrowing with exaggerated kyphosis at the level of wedge deformity T12. Multilevel wedge deformities were noted and believed to be chronic in nature. Resolution of vacuum disc phenomena at the thoracolumbar junction suggest that there may be some acute on chronic inflammatory changes when comparing results to previous imaging. EKG showed NSTEMI with an elevated troponin at [address] Hoffmann (cardiology) from [facility] was consulted. He recommended an echo and medical management. Patient was started on Lovenox and a statin in the meantime. 03/01/22: Echo showed the left and right ventricle are of normal size. There is mild mitral regurgitation. There is mild tricuspid regurgitation. The left ventricle wall thickness is normal. Apical segments are akinetic. Overall Left ventricular systolic function is mildly impaired with an ejection fraction of 40-45%. There is moderately abnormal right sided pressure. RVSP at rest is 51 mmHg. She also had a surgical consultation with Dr. Munguia for a possible EGD given her dysphagia but refused the procedure. 03/02/22: Dr. Cherry at [facility] agreed that patient should be transferred for higher level of care. However, there are no openings at any nearby hospital for her at this time. 03/03: Patient had increased fatigue and back pain due to poor sleep overnight. She is reluctant to undergo an EGD but has agreed if her swallowing does not improve. Today, patient reports feeling well. She has an appetite and was able to eat all of her breakfast. She is motivated to get her nutrition under control to avoid having an EGD or PEG tube placement. There is no change in her back pain. Denies any chest pain, lightheadedness, or dizziness. Objective - Vital Signs/Intake & Output Reviewed Vital Signs: Yes Vital Signs: Vital Signs x48h Temp Pulse Resp BP Pulse Ox O2 Flow Rate 03/04/23 01:04 36.4 C L 75 16 121/79 98 2 Intake & Output: Intake & Output 03/01/23 03/02/23 03/03/23 03/04/23 23:59 23:59 23:59 23:59 Intake Total 385 540 820 Output Total 300 1250 1350 350 Balance 85 -710 -530 -350 - Objective General Appearance: positive: No acute distress, Alert, Other (cachexic appearing) Eyes Bilateral: positive: Normal inspection, PERRL, EOMI ENT: positive: No signs of dehydration Neck: positive: No JVD, Trachea midline Respiratory: positive: Chest non-tender Cardiovascular: positive: Regular rate & rhythm, No murmur, No gallop Abdomen: positive: Non-tender, Nml bowel sounds, No distention Skin: positive: Color nml, No rash, Warm, Dry Extremities: positive: Non-tender, Full ROM, Nml appearance Neurologic/Psychiatric: positive: Oriented x3 - Lab Results Fish Bones: 03/04/23 08:15 03/04/23 08:15 Assessment/Plan - Problem List (1) Malnourished Impression: Patient is severely malnourished with a BMI of 13. She has lost 20% of her weight in 2 months and her dentures no longer fit due to the weight loss. Her decreased appetite is multifactorial, likely due to a combination of depression, grief, pain, and adjustment disorder as her a few months ago. Patient lives alone and has a caregiver 1x a week to help prepare food. Surgery was consulted for an EGD and we are in the process of working with anaesthesia to see if patient can have the procedure here. As a result of severe malnutrition, patient has generalized weakness. She has a hard time sitting up for extended periods of time. PT/OT has been consulted. Patient is also working with nutrition services. If her intake continues to be limited, we may need to discuss a PEG tube. Today, she was able to eat all of her breakfast. She is adamant that she can swallow and is motivated to avoid undergoing an EGD or PEG tube placement. - Follow diet per machine lacer - Encourage PO intake - Consider PEG tube if PO intake continues to be limited - Consider EGD if dysphagia continues - Continue on soft and pureed foods/liquids - Consult with social work to determine if a different care plan is necessary (2) Acute non-ST elevation myocardial infarction (NSTEMI) Impression: EKG on admission showed significant deep T wave inversions in leads V4-V6 and an elevated troponin at 304. [address] Hoffmann from [facility] was consulted and he recommended an echo + medical management. Catheterization not needed immediately. Repeat troponin on 03/01 at 101.2. Echo showed: Mild mitral and tricuspid regurgitation. Left ventricular systolic function is mildly impaired with an ejection fraction of 40-45%. There is moderately abnormal right sided pressure. RVSP at rest is [address] Hoffmann agreed that higher level of care is needed. However, there are no open beds in the surrounding area. She will still need a stress test and angiogram in the outpatient setting. - Will wait for open bed to transfer patient to higher level of care - Continue on Lovenox - Continue on daily dose of ASA for PVD - Continue on statin therapy - Continue on metoprolol (3) Acute respiratory failure with hypoxia Impression: Patient requires supplemental O2 at 2 L NC. Without supplementation, patient de- saturates to mid 80's on room air. We believe this is due to underlying COPD with COPD exacerbation in conjunction with her pneumonia. chest XR and chest CT did not show CHF. CTA negative for PE. Patient did have an acute ID and cardiology was consulted. We are waiting for an open bed at a higher level of care facility. - Continue on supplemental O2 with target saturation of 90% or above - Treat underlying causes (4) Pneumonia Impression: Chest XR showed bilateral infiltrates. This is consistent with patient's shortness of breath, dyspnea, and hypoxia on room air. - Continue on Augmentin BID (day 6/7) - remain on supplemental oxygen to maintain O2 sats above 90% Qualifiers: Pneumonia type: due to unspecified organism Laterality: bilateral Lung location: lower lobe of lung Qualified Code(s): J18.9 - Pneumonia, unspecified organism (5) COPD with exacerbation Impression: Patient has not had formal COPD work up and diagnosis but is being treated for presumed COPD given her long history of tobacco use. - continue on duoneb treatments as needed - continue on montelukast - continue on IV and inhaled steroids - Will discuss smoking cessation with patient - Will discuss outpatient pulmonology consult (6) Thoracic compression fracture Impression: Review of previous imaging show chronic multi-level wedge deformities, consistent with longstanding history of back pain. She will start on vitamin D + calcium supplementation for a week before getting Zometa infusion - Pain management with tylenol and dilaudid - Continue with PT/OT - Start on vitamin D + calcium supplementation (03/04) - In one week, Zometa for bone loss Qualifiers: Encounter type: initial encounter Thoracic vertebra fracture level: T7 Qualified Code(s): S22.060A - Wedge compression fracture of T7-T8 vertebra, initial encounter for closed fracture (7) PVD (peripheral vascular disease) Impression: Patient has a history of recurrent leg wounds and underwent stenting of the L leg in 09/2022 with significant healing and improvement. Denies any pain, swelling, numbness, or tingling. - Continue on daily ASA (8) Rheumatoid arthritis flare Impression: Patient has a history of rheumatoid arthritis. We believe she is currently having a RA flare. - Continue on home medication, Sulfasalazine - Patient is already scheduled for a follow up next month (9) Smoker Impression: Patient reports smoking 1/2 ppd but has not smoked for about 5 days prior to admission to the hospital. She declined a nicotine patch when asked but is interested in quitting. - Cessation counseling (10) Dehydration Impression: RESOLVED. Patient was receiving IV fluids but no longer requires them. <Shelly Francois - Last Filed: 03/04/23 19:59> Objective - Vital Signs/Intake & Output Vital Signs: Vital Signs x48h Temp Pulse Resp BP Pulse Ox O2 Flow Rate 03/04/23 16:08 36.6 C 100 18 121/80 95 2 Intake & Output: Intake & Output 03/01/23 03/02/23 03/03/23 03/04/23 23:59 23:59 23:59 23:59 Intake Total 385 540 820 600 Output Total 300 1250 1350 550 Balance 85 -710 -530 50 - Lab Results Fish Bones: 03/04/23 08:15 03/04/23 08:15 Other Labs: Lab Results x24hrs 03/04/23 03/04/23 Range/Units 08:15 08:15 WBC 2.1 L (4.8-10.8) x10^3/uL RBC 5.03 (4.20-5.40) 10^6/uL Hgb 15.1 (12.0-16.0) g/dL Hct 47.3 H (37.0-47.0) % MCV 94.0 (81.0-99.0) fL MCH 30.0 (27.0-31.0) pg MCHC 31.9 L (32.0-36.0) g/dL RDW 14.0 (12.0-15.0) % Plt Count 146 (130-450) 10^3/uL MPV 10.5 (7.9-10.8) fL Neut # (Auto) 1.2 L (1.5-6.6) 10^3/uL Lymph # (Auto) 0.7 L (1.5-3.5) 10^3/uL Snyder # (Auto) 0.2 (0.0-1.0) 10^3/uL Eos # (Auto) 0.0 (0.0-0.7) 10^3/uL Baso # (Auto) 0.0 (0.0-0.1) 10^3/uL Absolute Nucleated RBC 0.00 x10^3/uL Nucleated RBC % 0.0 /100WBC Manual Slide Review Indicated Platelet Estimate NORMAL (130-450,000) (NORMAL) Platelet Morphology NORMAL APPEARANCE (NORMAL) RBC Morph Micro Appear NORMAL APPEARANCE (NORMAL) Sodium 134 L (135-145) mmol/L Potassium 3.6 (3.5-4.5) mmol/L Chloride 97 L (101-111) mmol/L Carbon Dioxide 33 H (21-32) mmol/L Anion Gap 4.0 L (6-13) BUN 6 (6-20) mg/dL Creatinine 0.2 L (0.6-1.3) mg/dL Estimated GFR (MDRD) 351 (>89) Glucose 72 L (74-104) mg/dL Calcium 8.3 L (8.5-10.3) mg/dL Magnesium 1.7 (1.7-2.3) mg/dL
[2023-03-04 08:22] LABS: EOSINOPHILS % (AUTO) 0.5 %; HCT - HEMATOCRIT 47.3 % (37.0-47.0); HGB - HEMOGLOBIN 15.1 g/dL (12.0-16.0); LYMPHOCYTES # (AUTO) 0.7 10^3/uL (1.5-3.5); LYMPHOCYTES % (AUTO) 34.8 %; MEAN CORPUSCULAR HGB CONC 31.9 g/dL (32.0-36.0); MEAN PLATELET VOLUME 10.5 fL (7.9-10.8); MONOCYTES # (AUTO) 0.2 10^3/uL (0.0-1.0); MONOCYTES % (AUTO) 8.1 %; NEUTROPHILS # (AUTO) 1.2 10^3/uL (1.5-6.6); NEUTROPHILS % (AUTO) 55.1 %; PLT - PLATELET COUNT 146 10^3/uL (130-450); RED BLOOD COUNT 5.03 10^6/uL (4.20-5.40); WHITE BLOOD COUNT 2.1 x10^3/uL (4.8-10.8)
[2023-03-04 08:32] LABS: CALCIUM 8.3 mg/dL (8.5-10.3); CREATININE 0.2 mg/dL (0.6-1.3); MAGNESIUM 1.7 mg/dL (1.7-2.3); POTASSIUM 3.6 mmol/L (3.5-4.5)
[2023-03-04 08:38] LABS: SLIDE REVIEW? Indicated
[2023-03-04 08:39] LABS: PLATELET ESTIMATE, MANUAL NORMAL (130-450,000) (NORMAL); PLATELET MORPHOLOGY NORMAL APPEARANCE (NORMAL); RBC MORPHOLOGY (MULTIPLE) NORMAL APPEARANCE (NORMAL)
[2023-03-04] MEDS: amLODIPine 5 MG TABLET PO SCH (08:48)
[2023-03-04] MEDS: ASPIRIN EC 81 MG TABLET PO SCH (08:49)
[2023-03-04] MEDS: FAMOTIDINE 20 MG TABLET PO SCH ×2 (08:49→21:25)
[2023-03-04] MEDS: PRENATAL VITAMIN TABLET PO SCH (08:49)
[2023-03-04] MEDS: CYANOCOBALAMIN 500 MCG TABLET PO SCH (08:49)
[2023-03-04] MEDS: DICLOFENAC SODIUM DR 75 MG TABLET PO SCH ×2 (08:50→21:26)
[2023-03-04] MEDS: AMOX/CLAV 875 MG/125 MG TABLET PO SCH ×2 (08:50→21:24)
[2023-03-04] MEDS: METOPROLOL SUCCINATE 25 MG TABLET PO SCH ×2 (08:50→21:21)
[2023-03-04] MEDS: sulfaSALAzine 500 MG TABLET PO SCH ×2 (08:51→21:24)
[2023-03-04] MEDS: CHOLECALCIFEROL 400 UNIT TABLET PO SCH (08:51)
[2023-03-04] MEDS: ENOXAPARIN 40 MG/0.4 ML SYRINGE SUBQ SCH ×2 (08:52→21:26)
[2023-03-04] MEDS: polyethylene glycoL 3350 17 GM PACKET PO SCH (08:57)
[2023-03-04] MEDS: CALCIUM CARBONATE CHEW 500 MG TABLET PO SCH ×2 (14:30→21:28)
[2023-03-04] MEDS: ZINC OXIDE 20% OINT 30 GM TUBE TOP PRN (21:15)
[2023-03-04] MEDS: ATORVASTATIN 40 MG TABLET PO SCH (21:26)
[2023-03-05] MEDS: SODIUM CHLORIDE FLUSH 0.9% 10 ML SYRINGE IVP SCH ×3 (00:22→16:37)
[2023-03-05] MEDS: CALCIUM CARBONATE CHEW 500 MG TABLET PO SCH ×3 (05:28→21:39)
[2023-03-05] MEDS: HYDROmorphone 0.5 MG/0.5 ML SYRINGE IVP PRN ×4 (05:32→21:45)
--- NOTE | 2023-03-05 07:14 | PROVIDER PROGRESS NOTE ---
Subjective - Prog Note Date Prog Note Date: 03/05/23 Prog Note Time: 07:11 - Subjective Pt reports feeling: Improved Subjective: Jonathan is a 72 year old female who smokes daily, with a history of peripheral vascular disease and chronic back pain who was admitted 2 days ago for increasingly progressive back pain that forced her to be bed bound. As a result, patient has not eaten or drank anything for the past few days. She also complained of a wet cough with tachycardia (125 bpm) and a decreased oxygen saturation of 91%. In the ER, a chest XR was done that showed bilateral pleural effusions with concerns of infection, R > L. Patient was started on duoneb treatment and O2 supplementation at 2L NC. CT pulmonary angiogram showed no sign of PE. She was started on a combination of Ceftriaxone and azithromycin. Imaging of the lumbar spine was limited due to patient position. Multilevel degenerative changes seen contributing to osseous spinal canal and foraminal narrowing with exaggerated kyphosis at the level of wedge deformity T12. Multilevel wedge deformities were noted and believed to be chronic in nature. Resolution of vacuum disc phenomena at the thoracolumbar junction suggest that there may be some acute on chronic inflammatory changes when comparing results to previous imaging. EKG showed NSTEMI with an elevated troponin at [address] Hfofmann (cardiology) from [facility] was consulted. He recommended an echo and medical management. Patient was started on Lovenox and a statin in the meantime. 03/01/22: Echo showed the left and right ventricle are of normal size. There is mild mitral regurgitation. There is mild tricuspid regurgitation. The left ventricle wall thickness is normal. Apical segments are akinetic. Overall Left ventricular systolic function is mildly impaired with an ejection fraction of 40-45%. There is moderately abnormal right sided pressure. RVSP at rest is 51 mmHg. She also had a surgical consultation with Dr. Munguia for a possible EGD given her dysphagia but refused the procedure. 03/02/22: Dr. Cherry at [facility] agreed that patient should be transferred for higher level of care. However, there are no openings at any nearby hospital for her at this time. 03/03: Patient had increased fatigue and back pain due to poor sleep overnight. She is reluctant to undergo an EGD but has agreed if her swallowing does not improve. 03/04: Patient is newly motivated to eat and was able to finish all her breakfast. She is actively working towards avoiding an EGD or PEG tube placement. Today she is feeling well and hungry. She has been eating more and we are transitioning her to a regular diet. There is no change in her back pain. Denies any chest pain, lightheadedness, or dizziness. Objective - Vital Signs/Intake & Output Vital Signs: Vital Signs x48h Temp Pulse Resp BP Pulse Ox O2 Flow Rate 03/04/23 23:32 36.5 C 82 18 105/70 96 2 Intake & Output: Intake & Output 03/02/23 03/03/23 03/04/23 03/05/23 23:59 23:59 23:59 23:59 Intake Total 540 820 900 Output Total 1250 1350 730 150 Balance -710 -530 170 -150 - Objective General Appearance: positive: No acute distress, Alert, Other (cachectic) Eyes Bilateral: positive: Normal inspection, PERRL, EOMI ENT: positive: No signs of dehydration Neck: positive: Nml inspection Respiratory: positive: Chest non-tender, Other (on 2 L oxygen) Cardiovascular: positive: Regular rate & rhythm, No murmur, No gallop Abdomen: positive: Non-tender, Nml bowel sounds, No distention Skin: positive: Color nml, No rash, Warm, Dry Extremities: positive: Non-tender, Full ROM, Nml appearance Neurologic/Psychiatric: positive: Oriented x3 - Lab Results Fish Bones: 03/04/23 08:15 03/04/23 08:15 Other Labs: Lab Results x24hrs 03/04/23 03/04/23 Range/Units 08:15 08:15 WBC 2.1 L (4.8-10.8) x10^3/uL RBC 5.03 (4.20-5.40) 10^6/uL Hgb 15.1 (12.0-16.0) g/dL Hct 47.3 H (37.0-47.0) % MCV 94.0 (81.0-99.0) fL MCH 30.0 (27.0-31.0) pg MCHC 31.9 L (32.0-36.0) g/dL RDW 14.0 (12.0-15.0) % Plt Count 146 (130-450) 10^3/uL MPV 10.5 (7.9-10.8) fL Neut # (Auto) 1.2 L (1.5-6.6) 10^3/uL Lymph # (Auto) 0.7 L (1.5-3.5) 10^3/uL Monona # (Auto) 0.2 (0.0-1.0) 10^3/uL Eos # (Auto) 0.0 (0.0-0.7) 10^3/uL Baso # (Auto) 0.0 (0.0-0.1) 10^3/uL Absolute Nucleated RBC 0.00 x10^3/uL Nucleated RBC % 0.0 /100WBC Manual Slide Review Indicated Platelet Estimate NORMAL (130-450,000) (NORMAL) Platelet Morphology NORMAL APPEARANCE (NORMAL) RBC Morph Micro Appear NORMAL APPEARANCE (NORMAL) Sodium 134 L (135-145) mmol/L Potassium 3.6 (3.5-4.5) mmol/L Chloride 97 L (101-111) mmol/L Carbon Dioxide 33 H (21-32) mmol/L Anion Gap 4.0 L (6-13) BUN 6 (6-20) mg/dL Creatinine 0.2 L (0.6-1.3) mg/dL Estimated GFR (MDRD) 351 (>89) Glucose 72 L (74-104) mg/dL Calcium 8.3 L (8.5-10.3) mg/dL Magnesium 1.7 (1.7-2.3) mg/dL Assessment/Plan - Problem List (1) Malnourished Impression: Patient is severely malnourished with a BMI of 13. She has lost 20% of her weight in 2 months and her dentures no longer fit due to the weight loss. Her decreased appetite is multifactorial, likely due to a combination of depression, grief, pain, and adjustment disorder as her a few months ago. Patient lives alone and has a caregiver 1x a week to help prepare food. Surgery was consulted for an EGD and we are in the process of working with anaesthesia to see if patient can have the procedure here. As a result of severe malnutrition, patient has generalized weakness. She has a hard time sitting up for extended periods of time. PT/OT has been consulted. Patient is also working with nutrition services. If her intake continues to be limited, we may need to discuss a PEG tube. Today, she was able to eat more outside of her puree foods. We transitioned her to a normal diet. - Follow diet per interlacer - Encourage PO intake - Consider PEG tube if PO intake continues to be limited - Consider EGD if dysphagia continues - Transition to regular diet - Consult with social work to determine if a different care plan is necessary (2) Acute non-ST elevation myocardial infarction (NSTEMI) Impression: EKG on admission showed significant deep T wave inversions in leads V4-V6 and an elevated troponin at 304. Associate Doctor Dr. Hoffmann from [facility] was consulted and he recommended an echo + medical management. Catheterization not needed immediately. Repeat troponin on 03/01 at 101.2. Echo showed: Mild mitral and tricuspid regurgitation. Left ventricular systolic function is mildly impaired with an ejection fraction of 40-45%. There is moderately abnormal right sided pressure. RVSP at rest is [address] Hoffmann agreed that higher level of care is needed. However, there are no open beds in the surrounding area. She will still need a stress test and angiogram in the outpatient setting. We have taken her off the transport list. She will be discharged to a senior care and follow up with cardiology outpatient. - follow up with cardiology outpatient - Continue on Lovenox - Continue on daily dose of ASA for PVD - Continue on statin therapy - Continue on metoprolol (3) Acute respiratory failure with hypoxia Impression: Patient requires supplemental O2 at 2 L NC. Without supplementation, patient de- saturates to mid 80's on room air. We believe this is due to underlying COPD with COPD exacerbation in conjunction with her pneumonia. chest XR and chest CT did not show CHF. CTA negative for PE. Patient did have an acute [place] and cardiology was consulted. As of today, 03/05, we are no longer looking to transport her to a higher level of care facility. There is no open bed and given her stable condition, will not be a priority for transfer should there be a bed. She will continue with her current plan and consult with cardiology in the outpatient setting. - Continue on supplemental O2 with target saturation of 90% or above - Treat underlying causes (4) Pneumonia Impression: Chest XR showed bilateral infiltrates. This is consistent with patient's sh ortness of breath, dyspnea, and hypoxia on room air. today 03/05 is her last day of Augmentin. - Complete Augmentin (day 08/20) - remain on supplemental oxygen to maintain O2 sats above 90% Qualifiers: Pneumonia type: due to unspecified organism Laterality: bilateral Lung location: lower lobe of lung Qualified Code(s): J18.9 - Pneumonia, unspecified organism (5) COPD with exacerbation Impression: Patient has not had formal COPD work up and diagnosis but is being treated for presumed COPD given her long history of tobacco use. - continue on duoneb treatments as needed - continue on montelukast - continue on IV and inhaled steroids - Will discuss smoking cessation with patient - Will discuss outpatient pulmonology consult (6) Thoracic compression fracture Impression: Review of previous imaging show chronic multi-level wedge deformities, consistent with longstanding history of back pain. She will start on vitamin D + calcium supplementation for a week before getting Zometa infusion - Pain management with tylenol and dilaudid - Continue with PT/OT - Start on vitamin D + calcium supplementation (03/04) - In one week, Zometa for bone loss Qualifiers: Encounter type: initial encounter Thoracic vertebra fracture level: T7 Qualified Code(s): S22.060A - Wedge compression fracture of T7-T8 vertebra, initial encounter for closed fracture (7) PVD (peripheral vascular disease) Impression: Patient has a history of recurrent leg wounds and underwent stenting of the L leg in 09/2022 with significant healing and improvement. Denies any pain, swelling, numbness, or tingling. - Continue on daily ASA (8) Rheumatoid arthritis flare Impression: Patient has a history of rheumatoid arthritis. We believe she is currently having a RA flare. - Continue on home medication, Sulfasalazine - Patient is already scheduled for a follow up next month (9) Smoker Impression: Patient reports smoking 1/2 ppd but has not smoked for about 5 days prior to admission to the hospital. She declined a nicotine patch when asked but is interested in quitting. - Cessation counseling (10) Dehydration Impression: RESOLVED. Patient's electrolytes have normalized. IV fluids no longer needed.
[2023-03-05] MEDS: AMOX/CLAV 875 MG/125 MG TABLET PO SCH (08:55)
[2023-03-05] MEDS: CHOLECALCIFEROL 400 UNIT TABLET PO SCH (08:55)
[2023-03-05] MEDS: FAMOTIDINE 20 MG TABLET PO SCH ×2 (08:56→21:38)
[2023-03-05] MEDS: METOPROLOL SUCCINATE 25 MG TABLET PO SCH ×2 (08:56→21:32)
[2023-03-05] MEDS: ASPIRIN EC 81 MG TABLET PO SCH (08:56)
[2023-03-05] MEDS: SENNA 8.6 MG TABLET PO SCH (08:57)
[2023-03-05] MEDS: sulfaSALAzine 500 MG TABLET PO SCH ×2 (08:57→21:37)
[2023-03-05] MEDS: CYANOCOBALAMIN 500 MCG TABLET PO SCH (08:58)
[2023-03-05] MEDS: PRENATAL VITAMIN TABLET PO SCH (08:58)
[2023-03-05] MEDS: DICLOFENAC SODIUM DR 75 MG TABLET PO SCH ×2 (08:58→21:38)
[2023-03-05] MEDS: amLODIPine 5 MG TABLET PO SCH (08:59)
[2023-03-05] MEDS: DOCUSATE SODIUM 250 MG CAPSULE PO SCH (08:59)
[2023-03-05] MEDS: ENOXAPARIN 40 MG/0.4 ML SYRINGE SUBQ SCH ×2 (09:00→21:38)
[2023-03-05] MEDS: polyethylene glycoL 3350 17 GM PACKET PO SCH (09:00)
[2023-03-05] MEDS ORDERED: DIATRIZOATE MEGLU/DIATRIZO SOD 30 ML BOTTLE PO ONE ×2 (09:04→09:59)
[2023-03-05] MEDS ORDERED: iohexoL-300 100 ML VIAL ONE (09:04)
[2023-03-05] MEDS ORDERED: iohexoL-300 100 ML VIAL IVP ONE (10:00)
--- NOTE | 2023-03-05 17:39 | CT Report ---
PROCEDURE: CT chest with contrast INDICATIONS: dysphagia, cant do EGD TECHNIQUE: Helical axial CT of the chest was obtained after an intravenous contrast injection and ref ormatted in multiple planes. Radiation dose reduction was achieved using automated exposure control, adjustment of mA and/or kV according to patient size. . COMPARISON: 02/27/2023 FINDINGS: Lungs and pleura: Advanced pulmonary emphysema present. Moderate bilateral pleural effusions with lef t lower lobe segmental atelectasis. Mediastinum: Heart size is normal. No pericardial effusion. No large vessel abnormality. No mediastin al adenopathy by size criteria. No contrast in the thoracic esophagus Chest wall and lower neck: Thyroid is unremarkable. No axillary or supraclavicular adenopathy by size . Bones: Multiple thoracic compression fractures results in an exaggerated kyphosis Upper Abdomen: 1.6 x 0.9 cm hyperdensity noted in the distal esophagus may reflect recently administe red oral contrast. Aortic atherosclerotic vascular calcification IMPRESSION: Advanced pulmonary emphysema associated with moderate bilateral pleural effusions and segmental left lower lobe atelectasis. Pleural effusions have improved in prior left lower lobe atelectasis has incr eased from the prior. No contrast in the thoracic portion of esophagus. There is hyperdense material in the gastroesophagea l junction which may reflect enteric contrast. Reviewed by: Salazar Arthur MD on 03/05/2023 4:38 PM [place] Approved by: Salazar Arthur MD on 03/05/2023 4:38 PM [place] Station ID: [id number]
[2023-03-05] MEDS: ATORVASTATIN 40 MG TABLET PO SCH (21:38)
[2023-03-05] MEDS: SODIUM CHLORIDE FLUSH 0.9% 10 ML SYRINGE IVP PRN (21:45)
[2023-03-06] MEDS: SODIUM CHLORIDE FLUSH 0.9% 10 ML SYRINGE IVP SCH ×3 (01:36→16:11)
[2023-03-06] MEDS: CALCIUM CARBONATE CHEW 500 MG TABLET PO SCH ×3 (06:01→21:26)
--- NOTE | 2023-03-06 08:33 | PROVIDER PROGRESS NOTE ---
Subjective - Prog Note Date Prog Note Date: 03/06/23 Prog Note Time: 08:27 - Subjective Pt reports feeling: No change Subjective: Jonathan is a 72 year old female who smokes daily, with a history of peripheral vascular disease and chronic back pain who was admitted 2 days ago for increasingly progressive back pain that forced her to be bed bound. As a result, patient has not eaten or drank anything for the past few days. She also complained of a wet cough with tachycardia (125 bpm) and a decreased oxygen saturation of 91%. In the ER, a chest XR was done that showed bilateral pleural effusions with concerns of infection, R > L. Patient was started on duoneb treatment and O2 supplementation at 2L NC. CT pulmonary angiogram showed no sign of PE. She was started on a combination of Ceftriaxone and azithromycin. Imaging of the lumbar spine was limited due to patient position. Multilevel degenerative changes seen contributing to osseous spinal canal and foraminal narrowing with exaggerated kyphosis at the level of wedge deformity T12. Multilevel wedge deformities were noted and believed to be chronic in nature. Resolution of vacuum disc phenomena at the thoracolumbar junction suggest that there may be some acute on chronic inflammatory changes when comparing results to previous imaging. EKG showed NSTEMI with an elevated troponin at [address] Hoffmann (cardiology) from [facility] was consulted. He recommended an echo and medical management. Patient was started on Lovenox and a statin in the meantime. 03/01/22: Echo showed the left and right ventricle are of normal size. There is mild mitral regurgitation. There is mild tricuspid regurgitation. The left ventricle wall thickness is normal. Apical segments are akinetic. Overall Left ventricular systolic function is mildly impaired with an ejection fraction of 40-45%. There is moderately abnormal right sided pressure. RVSP at rest is 51 mmHg. She also had a surgical consultation with Dr. Munguia for a possible EGD given her dysphagia but refused the procedure. 03/02/22: Dr. Cherry at [facility] agreed that patient should be transferred for higher level of care. However, there are no openings at any nearby hospital for her at this time. 03/03: Patient had increased fatigue and back pain due to poor sleep overnight. She is reluctant to undergo an EGD but has agreed if her swallowing does not improve. 03/04: Patient is newly motivated to eat and was able to finish all her breakfast. She is actively working towards avoiding an EGD or PEG tube placement. 03/05: CT showed advanced pulmonary emphysema associated with moderate bilateral pleural effusions and segmental left lower lobe atelectasis. pleural effusions have improved from prior. lower left lobe atelectasis has increased from prior. no contrast in thoracic portion of esophagus. there is hyperdense material in the gastroesophageal junction, which may reflect enteric contrast Today she reports an improvement in her respirations. She is eating most of her meals without choking or difficulty swallowing. There is no change in her back pain. Denies any chest pain, lightheadedness, or dizziness. She is now stable for discharge. She completed her antibiotic therapy today and continues to work with PT/OT to increase strength and mobility. She is open to going to a half-way. Objective - Vital Signs/Intake & Output Vital Signs: Vital Signs x48h Temp Pulse Resp BP Pulse Ox O2 Flow Rate 03/06/23 01:58 36.4 C L 76 16 122/77 94 2 Intake & Output: Intake & Output 03/03/23 03/04/23 03/05/23 03/06/23 23:59 23:59 23:59 23:59 Intake Total 820 900 540 100 Output Total 1350 730 450 200 Balance -530 170 90 -100 - Objective General Appearance: positive: No acute distress, Alert, Other (cachectic) Eyes Bilateral: positive: Normal inspection, EOMI ENT: positive: No signs of dehydration Neck: positive: No JVD, Trachea midline Respiratory: positive: Chest non-tender, Wheezes ((occasional)) Cardiovascular: positive: Regular rate & rhythm, No murmur, No gallop Abdomen: positive: Non-tender, Nml bowel sounds, No distention Skin: positive: Color nml, No rash, Warm, Dry Extremities: positive: Non-tender, Full ROM Neurologic/Psychiatric: positive: Oriented x3 - Lab Results Fish Bones: 03/04/23 08:15 03/04/23 08:15 ABX Reporting Has patient been on IV antibiotics over the past 48 hours?: No Assessment/Plan - Problem List (1) Malnourished Impression: Patient is severely malnourished with a BMI of 13. She has lost 20% of her weight in 2 months and her dentures no longer fit due to the weight loss. Her decreased appetite is multifactorial, likely due to a combination of depression, grief, pain, and adjustment disorder as her a few months ago. Patient lives alone and has a caregiver 1x a week to help prepare food. Surgery was consulted for an EGD and we are in the process of working with anaesthesia to see if patient can have the procedure here. As a result of severe malnutrition, patient has generalized weakness. She has a hard time sitting up for extended periods of time. PT/OT has been consulted. Patient is also working with nutrition services. If her intake continues to be limited, we may need to discuss a PEG tube. She has been eating more on a normal diet. We will encourage her to eat/drink throughout the day. - Follow diet per investigator narcotics - Encourage PO intake - Consider PEG tube if PO intake continues to be limited - Consider EGD if dysphagia continues - Consult with social work to determine if a different care plan is necessary (2) Acute non-ST elevation myocardial infarction (NSTEMI) Impression: EKG on admission showed significant deep T wave inversions in leads V4-V6 and an elevated troponin at 304. Jewel Staker Dr. Hoffmann from [facility] was consulted and he recommended an echo + medical management. Catheterization not needed immediately. Repeat troponin on 03/01 at 101.2. Echo showed: Mild mitral and tricuspid regurgitation. Left ventricular systolic function is mildly impaired with an ejection fraction of 40-45%. There is moderately abnormal right sided pressure. RVSP at rest is [address] Hoffmann agreed that higher level of care is needed. However, there are no open beds in the surrounding area. She will still need a stress test and angiogram in the outpatient setting. We have taken her off the transport list. She will be discharged to a half-way and follow up with cardiology outpatient. - follow up with cardiology outpatient - Continue on Lovenox - Continue on daily dose of ASA for PVD - Continue on statin therapy - Continue on metoprolol (3) Acute respiratory failure with hypoxia Impression: Patient requires supplemental O2 at 2 L NC. Without supplementation, patient de- saturates to mid 80's on room air. We believe this is due to underlying COPD with COPD exacerbation in conjunction with her pneumonia. chest XR and chest CT did not show CHF. CTA negative for PE. Patient did have an acute [place] and cardiology was consulted. As of today, 03/05, we are no longer looking to transport her to a higher level of care facility. There is no open bed and given her stable condition, will not be a priority for transfer should there be a bed. She will continue with her current plan and consult with cardiology in the outpatient setting. - Continue on supplemental O2 with target saturation of 90% or above - Treat underlying causes (4) Pneumonia Impression: Chest XR showed bilateral infiltrates. This is consistent with patient's shortness of breath, dyspnea, and hypoxia on room air. She completed a 7 day course of Augmentin as well. - remain on supplemental oxygen to maintain O2 sats above 90% Qualifiers: Pneumonia type: due to unspecified organism Laterality: bilateral Lung location: lower lobe of lung Qualified Code(s): J18.9 - Pneumonia, unspecified organism (5) COPD with exacerbation Impression: Patient has not had formal COPD work up and diagnosis but is being treated for presumed COPD given her long history of tobacco use. - continue on duoneb treatments as needed - continue on montelukast - continue on IV and inhaled steroids - Will discuss smoking cessation with patient - Will discuss outpatient pulmonology consult (6) Thoracic compression fracture Impression: Review of previous imaging show chronic multi-level wedge deformities, consistent with longstanding history of back pain. She will start on vitamin D + calcium supplementation for a week before getting Zometa infusion - Pain management with tylenol and dilaudid - Continue with PT/OT - Start on vitamin D + calcium supplementation (03/04) - In one week, Zometa for bone loss Qualifiers: Encounter type: initial encounter Thoracic vertebra fracture level: T7 Qualified Code(s): S22.060A - Wedge compression fracture of T7-T8 vertebra, initial encounter for closed fracture (7) PVD (peripheral vascular disease) Impression: Patient has a history of recurrent leg wounds and underwent stenting of the L leg in 09/2022 with significant healing and improvement. Denies any pain, swelling, numbness, or tingling. - Continue on daily ASA (8) Rheumatoid arthritis flare Impression: Patient has a history of rheumatoid arthritis. We believe she is currently having a RA flare. - Continue on home medication, Sulfasalazine - Patient is already scheduled for a follow up next month . (9) Smoker Impression: Patient reports smoking 1/2 ppd but has not smoked for about 5 days prior to admission to the hospital. She declined a nicotine patch when asked but is interested in quitting. - Cessation counseling (10) Dehydration Impression: RESOLVED. Patient's electrolytes have normalized. IV fluids no longer needed
[2023-03-06] MEDS: DICLOFENAC SODIUM DR 75 MG TABLET PO SCH ×2 (08:53→21:24)
[2023-03-06] MEDS: CHOLECALCIFEROL 400 UNIT TABLET PO SCH (08:53)
[2023-03-06] MEDS: ASPIRIN EC 81 MG TABLET PO SCH (08:53)
[2023-03-06] MEDS: PRENATAL VITAMIN TABLET PO SCH (08:53)
[2023-03-06] MEDS: DOCUSATE SODIUM 250 MG CAPSULE PO SCH (08:54)
[2023-03-06] MEDS: METOPROLOL SUCCINATE 25 MG TABLET PO SCH ×2 (08:54→21:24)
[2023-03-06] MEDS: CYANOCOBALAMIN 500 MCG TABLET PO SCH (08:54)
[2023-03-06] MEDS: SENNA 8.6 MG TABLET PO SCH (08:54)
[2023-03-06] MEDS: amLODIPine 5 MG TABLET PO SCH (08:55)
[2023-03-06] MEDS: ENOXAPARIN 40 MG/0.4 ML SYRINGE SUBQ SCH ×2 (08:56→21:25)
[2023-03-06] MEDS: polyethylene glycoL 3350 17 GM PACKET PO SCH (08:57)
[2023-03-06] MEDS: sulfaSALAzine 500 MG TABLET PO SCH ×2 (09:03→21:23)
[2023-03-06] MEDS: PANTOPRAZOLE 40 MG TABLET PO SCH (09:06)
[2023-03-06] MEDS: SIMETHICONE CHEW 80 MG TABLET PO PRN (09:11)
[2023-03-06] MEDS: HYDROmorphone 0.5 MG/0.5 ML SYRINGE IVP PRN ×3 (09:12→16:52)
[2023-03-06 11:58] LABS: PT - PROTHROMBIN TIME 10.9 secs (9.9-12.6)
[2023-03-06] MEDS: ATORVASTATIN 40 MG TABLET PO SCH (21:24)
[2023-03-06] MEDS: HYDROcod/ACETAM 5/325 MG TABLET PO PRN (21:31)
[2023-03-07] MEDS: SODIUM CHLORIDE FLUSH 0.9% 10 ML SYRINGE IVP SCH ×3 (00:27→16:51)
[2023-03-07] MEDS: CALCIUM CARBONATE CHEW 500 MG TABLET PO SCH ×3 (05:33→21:32)
[2023-03-07] MEDS: HYDROmorphone 0.5 MG/0.5 ML SYRINGE IVP PRN (05:33)
[2023-03-07] MEDS: PANTOPRAZOLE 40 MG TABLET PO SCH (06:26)
[2023-03-07 07:03] LABS: CALCIUM 8.3 mg/dL (8.5-10.3); CREATININE 0.2 mg/dL (0.6-1.3); POTASSIUM 4.9 mmol/L (3.5-4.5)
[2023-03-07 07:24] LABS: BASOPHILS % (AUTO) 0.6 %; EOSINOPHILS % (AUTO) 0.9 %; HCT - HEMATOCRIT 40.5 % (37.0-47.0); LYMPHOCYTES # (AUTO) 0.7 10^3/uL (1.5-3.5); LYMPHOCYTES % (AUTO) 19.7 %; MEAN CORPUSCULAR HEMOGLOBIN 30.2 pg (27.0-31.0); MEAN CORPUSCULAR HGB CONC 32.1 g/dL (32.0-36.0); MONOCYTES # (AUTO) 0.3 10^3/uL (0.0-1.0); NEUTROPHILS # (AUTO) 2.5 10^3/uL (1.5-6.6); NEUTROPHILS % (AUTO) 70.5 %; PLT - PLATELET COUNT 131 10^3/uL (130-450); RED BLOOD COUNT 4.31 10^6/uL (4.20-5.40); RED CELL DISTRIBUTION WIDTH 14.1 % (12.0-15.0); WHITE BLOOD COUNT 3.5 x10^3/uL (4.8-10.8)
--- NOTE | 2023-03-07 08:07 | PROVIDER PROGRESS NOTE ---
Subjective - Prog Note Date Prog Note Date: 03/07/23 Prog Note Time: 08:06 - Subjective Pt reports feeling: No change Subjective: Jonathan is a 72 year old female who smokes daily, with a history of peripheral vascular disease and chronic back pain who was admitted 2 days ago for increasingly progressive back pain that forced her to be bed bound. As a result, patient has not eaten or drank anything for the past few days. She also complained of a wet cough with tachycardia (125 bpm) and a decreased oxygen saturation of 91%. In the ER, a chest XR was done that showed bilateral pleural effusions with concerns of infection, R > L. Patient was started on duoneb treatment and O2 supplementation at 2L NC. CT pulmonary angiogram showed no sign of PE. She was started on a combination of Ceftriaxone and azithromycin. Imaging of the lumbar spine was limited due to patient position. Multilevel degenerative changes seen contributing to osseous spinal canal and foraminal narrowing with exaggerated kyphosis at the level of wedge deformity T12. Multilevel wedge deformities were noted and believed to be chronic in nature. Resolution of vacuum disc phenomena at the thoracolumbar junction suggest that there may be some acute on chronic inflammatory changes when comparing results to previous imaging. EKG showed NSTEMI with an elevated troponin at [address] Hoffmann (cardiology) from [facility] was consulted. He recommended an echo and medical management. Patient was started on Lovenox and a statin in the meantime. 03/01/22: Echo showed the left and right ventricle are of normal size. There is mild mitral regurgitation. There is mild tricuspid regurgitation. The left ventricle wall thickness is normal. Apical segments are akinetic. Overall Left ventricular systolic function is mildly impaired with an ejection fraction of 40-45%. There is moderately abnormal right sided pressure. RVSP at rest is 51 mmHg. She also had a surgical consultation with Dr. Munguia for a possible EGD given her dysphagia but refused the procedure. 03/02/22: Dr. Cherry at [facility] agreed that patient should be transferred for higher level of care. However, there are no openings at any nearby hospital for her at this time. 03/03: Patient had increased fatigue and back pain due to poor sleep overnight. She is reluctant to undergo an EGD but has agreed if her swallowing does not improve. 03/04: Patient is newly motivated to eat and was able to finish all her breakfast. She is actively working towards avoiding an EGD or PEG tube placement. 03/05: CT showed advanced pulmonary emphysema associated with moderate bilateral pleural effusions and segmental left lower lobe atelectasis. pleural effusions have improved from prior. lower left lobe atelectasis has increased from prior. no contrast in thoracic portion of esophagus. there is hyperdense material in the gastroesophageal junction, which may reflect enteric contrast. 03/06: Stable for discharge. She continues to eat most of her meals without difficulty. We will add Tecumseh 5/325 1 tablet every 4 hours to help with her back pain in the outpatient setting. Completed antibiotic therapy for pneumonia. Today, she is feeling well and is ready to be discharged. Continues to eat without difficulty. Denies any chest pain, lightheadedness, or dizziness. She has been up in the chair for meals and reports feeling good while doing so. She has noticed a butt sore is forming and would like cream (nursing staff notified). Objective - Vital Signs/Intake & Output Vital Signs: Vital Signs x48h Temp Pulse Resp BP Pulse Ox 03/07/23 05:11 36.6 C 64 16 135/80 H 94 Intake & Output: Intake & Output 03/04/23 03/05/23 03/06/23 03/07/23 23:59 23:59 23:59 23:59 Intake Total 900 540 950 300 Output Total 730 450 525 200 Balance 170 90 425 100 - Objective General Appearance: positive: No acute distress, Alert, Other (cachectic) Eyes Bilateral: positive: Normal inspection, PERRL, EOMI Neck: positive: No JVD, Trachea midline Respiratory: positive: Chest non-tender, No respiratory distress, Wheezes (occasional), Other (on 2 L of O2) Cardiovascular: positive: Regular rate & rhythm, No murmur, No gallop Abdomen: positive: Nml bowel sounds, No distention Skin: positive: Color nml, No rash, Warm, Dry, Other (complains of a sore on her butt forming, not open) Extremities: positive: Non-tender, Nml appearance Neurologic/Psychiatric: positive: Oriented x3 - Lab Results Fish Bones: 03/07/23 06:18 03/07/23 06:18 Other Labs: Lab Results x24hrs 0103/07/23 03/06/23 Range/Units 06:18 06:18 11:46 WBC 3.5 L (4.8-10.8) x10^3/uL RBC 4.31 (4.20-5.40) 10^6/uL Hgb 13.0 (12.0-16.0) g/dL Hct 40.5 (37.0-47.0) % MCV 94.0 (81.0-99.0) fL MCH 30.2 (27.0-31.0) pg MCHC 32.1 (32.0-36.0) g/dL RDW 14.1 (12.0-15.0) % Plt Count 131 (130-450) 10^3/uL MPV 11.0 H (7.9-10.8) fL Neut # (Auto) 2.5 (1.5-6.6) 10^3/uL Lymph # (Auto) 0.7 L (1.5-3.5) 10^3/uL [place] # (Auto) 0.3 (0.0-1.0) 10^3/uL Eos # (Auto) 0.0 (0.0-0.7) 10^3/uL Baso # (Auto) 0.0 (0.0-0.1) 10^3/uL Absolute Nucleated RBC 0.00 x10^3/uL Nucleated RBC % 0.0 /100WBC PT 10.9 (9.9-12.6) secs INR 1.0 (0.8-1.2) Sodium 131 L (135-145) mmol/L Potassium 4.9 H (3.5-4.5) mmol/L Chloride 96 L (101-111) mmol/L Carbon Dioxide 32 (21-32) mmol/L Anion Gap 3.0 L (6-13) BUN 11 (6-20) mg/dL Creatinine 0.2 L (0.6-1.3) mg/dL Estimated GFR (MDRD) 351 (>89) Glucose 83 (74-104) mg/dL Calcium 8.3 L (8.5-10.3) mg/dL ABX Reporting Has patient been on IV antibiotics over the past 48 hours?: No Assessment/Plan - Problem List (1) Malnourished Impression: Patient is severely malnourished with a BMI of 13. She has lost 20% of her weight in 2 months and her dentures no longer fit due to the weight loss. Her decreased appetite is multifactorial, likely due to a combination of depression, grief, pain, and adjustment disorder as her a few months ago. Patient lives alone and has a caregiver 1x a week to help prepare food. Surgery was consulted for an EGD and we are in the process of working with anaesthesia to see if patient can have the procedure here. As a result of severe malnutrition, patient has generalized weakness. She has a hard time sitting up for extended periods of time. PT/OT has been consulted. Patient is also working with nutrition services. If her intake continues to be limited, we may need to discuss a PEG tube. She has been eating more on a normal diet. We will encourage her to eat/drink throughout the day. - Follow diet per technical training specialist - Encourage PO intake - Consider PEG tube if PO intake continues to be limited - Consider EGD if dysphagia continues - Consult with social work to determine if a different care plan is necessary (2) Acute non-ST elevation myocardial infarction (NSTEMI) Impression: EKG on admission showed significant deep T wave inversions in leads V4-V6 and an elevated troponin at 304. [employer] Tender Dr. Hoffmann from [facility] was consulted and he recommended an echo + medical management. Catheterization not needed immediately. Repeat troponin on 03/01 at 101.2. Echo showed: Mild mitral and tricuspid regurgitation. Left ventricular systolic function is mildly impaired with an ejection fraction of 40-45%. There is moderately abnormal right sided pressure. RVSP at rest is [address] Hoffmann agreed that higher level of care is needed. However, there are no open beds in the surrounding area. She will still need a stress test and angiogram in the outpatient setting. We have taken her off the transport list. She will be discharged to a detention and follow up with cardiology outpatient. - follow up with cardiology outpatient - Continue on Lovenox - Continue on daily dose of ASA for PVD - Continue on statin therapy - Continue on metoprolol (3) Acute respiratory failure with hypoxia Impression: Patient requires supplemental O2 at 2 L NC. Without supplementation, patient de- saturates to mid 80's on room air. We believe this is due to underlying COPD with COPD exacerbation in conjunction with her pneumonia. chest XR and chest CT did not show CHF. CTA negative for PE. Patient did have an acute HI and cardiology was consulted. As of today, 03/05, we are no longer looking to transport her to a higher level of care facility. There is no open bed and given her stable condition, will not be a priority for transfer should there be a bed. She will continue with her current plan and consult with cardiology in the outpatient setting. - Continue on supplemental O2 with target saturation of 90% or above - Treat underlying causes (4) Pneumonia Impression: Chest XR showed bilateral infiltrates. This is consistent with patient's shortness of breath, dyspnea, and hypoxia on room air. She completed a 7 day course of Augmentin as well. - remain on supplemental oxygen to maintain O2 sats above 90% (5) COPD with exacerbation Impression: Patient has not had formal COPD work up and diagnosis but is being treated for presumed COPD given her long history of tobacco use. - continue on duoneb treatments as needed - continue on montelukast - continue on IV and inhaled steroids - Will discuss smoking cessation with patient - Will discuss outpatient pulmonology consult (6) Thoracic compression fracture Impression: Review of previous imaging show chronic multi-level wedge deformities, consistent with longstanding history of back pain. She will start on vitamin D + calcium supplementation for a week before getting Zometa infusion. Will add Tecumseh 5/325 1 tablet every 4 hours to help with her back pain in the outpatient setting. - Pain management with tylenol and dilaudid - Continue with PT/OT - Start on vitamin D + calcium supplementation (03/04) - In one week, Zometa for bone loss (7) PVD (peripheral vascular disease) Impression: Patient has a history of recurrent leg wounds and underwent stenting of the L leg in 09/2022 with significant healing and improvement. Denies any pain, swelling, numbness, or tingling. - Continue on daily ASA (8) Rheumatoid arthritis flare Impression: Patient has a history of rheumatoid arthritis. We believe she is currently having a RA flare. - Continue on home medication, Sulfasalazine - Patient is already scheduled for a follow up next month . (9) Smoker Impression: Patient reports smoking 1/2 ppd but has not smoked for about 5 days prior to admission to the hospital. She declined a nicotine patch when asked but is interested in quitting. - Cessation counseling (10) Dehydration Impression: RESOLVED. Patient's electrolytes have normalized. IV fluids no longer needed (4) Pneumonia Qualifiers: Pneumonia type: due to unspecified organism Laterality: bilateral Lung location: lower lobe of lung Qualified Code(s): J18.9 - Pneumonia, unspecified organism (6) Thoracic compression fracture Qualifiers: Encounter type: initial encounter Thoracic vertebra fracture level: T7 Qualified Code(s): S22.060A - Wedge compression fracture of T7-T8 vertebra, initial encounter for closed fracture
[2023-03-07] MEDS: METOPROLOL SUCCINATE 25 MG TABLET PO SCH ×2 (08:14→21:31)
[2023-03-07] MEDS: DOCUSATE SODIUM 250 MG CAPSULE PO SCH (08:14)
[2023-03-07] MEDS: CHOLECALCIFEROL 400 UNIT TABLET PO SCH (08:15)
[2023-03-07] MEDS: DICLOFENAC SODIUM DR 75 MG TABLET PO SCH ×2 (08:15→21:31)
[2023-03-07] MEDS: CYANOCOBALAMIN 500 MCG TABLET PO SCH (08:15)
[2023-03-07] MEDS: SENNA 8.6 MG TABLET PO SCH (08:15)
[2023-03-07] MEDS: amLODIPine 5 MG TABLET PO SCH (08:15)
[2023-03-07] MEDS: PRENATAL VITAMIN TABLET PO SCH (08:15)
[2023-03-07] MEDS: ENOXAPARIN 40 MG/0.4 ML SYRINGE SUBQ SCH ×2 (08:15→21:36)
[2023-03-07] MEDS: ASPIRIN EC 81 MG TABLET PO SCH (08:15)
[2023-03-07] MEDS: polyethylene glycoL 3350 17 GM PACKET PO SCH (08:16)
[2023-03-07 08:30] LABS: PT - PROTHROMBIN TIME 10.7 secs (9.9-12.6)
[2023-03-07] MEDS: sulfaSALAzine 500 MG TABLET PO SCH ×2 (08:39→21:32)
[2023-03-07] MEDS: HYDROcod/ACETAM 5/325 MG TABLET PO PRN ×3 (10:00→22:46)
[2023-03-07] MEDS: ZINC OXIDE 20% OINT 30 GM TUBE TOP PRN ×2 (16:51→21:32)
[2023-03-07] MEDS: ATORVASTATIN 40 MG TABLET PO SCH (21:32)
[2023-03-08] MEDS: SIMETHICONE CHEW 80 MG TABLET PO PRN (00:28)
[2023-03-08] MEDS: SODIUM CHLORIDE FLUSH 0.9% 10 ML SYRINGE IVP SCH ×3 (00:54→16:33)
[2023-03-08] MEDS: CALCIUM CARBONATE CHEW 500 MG TABLET PO SCH ×3 (05:49→21:13)
[2023-03-08] MEDS: PANTOPRAZOLE 40 MG TABLET PO SCH (06:59)
[2023-03-08] MEDS: polyethylene glycoL 3350 17 GM PACKET PO SCH (07:38)
[2023-03-08] MEDS: CHOLECALCIFEROL 400 UNIT TABLET PO SCH (07:38)
[2023-03-08] MEDS: DICLOFENAC SODIUM DR 75 MG TABLET PO SCH ×2 (07:39→21:13)
[2023-03-08] MEDS: ASPIRIN EC 81 MG TABLET PO SCH (07:39)
[2023-03-08] MEDS: PRENATAL VITAMIN TABLET PO SCH (07:39)
[2023-03-08] MEDS: DOCUSATE SODIUM 250 MG CAPSULE PO SCH (07:39)
[2023-03-08] MEDS: CYANOCOBALAMIN 500 MCG TABLET PO SCH (07:40)
[2023-03-08] MEDS: METOPROLOL SUCCINATE 25 MG TABLET PO SCH ×2 (07:40→21:13)
[2023-03-08] MEDS: amLODIPine 5 MG TABLET PO SCH (07:41)
[2023-03-08] MEDS: SENNA 8.6 MG TABLET PO SCH (07:41)
[2023-03-08] MEDS: sulfaSALAzine 500 MG TABLET PO SCH ×2 (07:42→21:13)
[2023-03-08] MEDS: ENOXAPARIN 40 MG/0.4 ML SYRINGE SUBQ SCH (07:42)
[2023-03-08] MEDS: HYDROcod/ACETAM 5/325 MG TABLET PO PRN ×2 (07:46→18:12)
[2023-03-08] MEDS: ZINC OXIDE 20% OINT 30 GM TUBE TOP PRN (07:47)
[2023-03-08] MEDS ORDERED: ERGOCALCIFEROL 50,000 UNIT CAPSULE PO SCH (09:00)
--- NOTE | 2023-03-08 15:51 | PROVIDER PROGRESS NOTE ---
Assessment/Plan - Problem List (1) Generalized weakness Assessment/Plan: She was already week before admission, only had help in the home 1 day/week. Now she has been hospitalized for over a week and has become very deconditioned Plan: I will spread out frequency of her narcotics, since she is very sleepy PT and OT at a SNF after DC are planned. We have been waiting for authorization. She is to go to SNF tomorrow (2) Severe protein calorie malnutrition Impression: Patient is severely malnourished with a BMI of 13. She has lost 20% of her weight in 2 months and her dentures no longer fit due to the weight loss. Her decreased appetite is multifactorial, likely due to a combination of depression, grief, pain, and adjustment disorder as her a few months ago. Patient lives alone and has a caregiver 1x a week to help prepare food. Surgery was consulted for an EGD but she had CT instead which showed no esophageal narrowing or food. As a result of severe malnutrition, patient has generalized weakness. She has a hard time sitting up for extended periods of time. PT/OT has been consulted. She has been eating more on a normal diet. We will encourage her to eat/drink throughout the day. Plan: Follow diet per language pathologist Encourage PO intake Consider EGD if dysphagia continues (3) Acute respiratory failure with hypoxia Impression: Patient requires supplemental O2 at 2 L NC. Without supplementation, patient de- saturates to mid 80's on room air. We believe this is due to underlying COPD with COPD exacerbation in conjunction with her pneumonia and from her DE possibly causing mild CHF. CTA was negative for PE. Patient did have an acute DE and cardiology was consulted. As of today we are no longer looking to transport her to a higher level of care facility. Given her relatively stable condition, she will not be a priority for transfer should there be a bed. She will need consult with cardiology in the outpatient setting. Plan: Will obtain PFTs today to doccument severity of COPD Continue on supplemental O2 with target saturation of 90% or above Will get a walking oximetry test on the day of discharge to order going home with home O2, anticipate discharge tomorrow to SNF (4) Acute non-ST elevation myocardial infarction (NSTEMI) Impression: EKG on admission showed significant deep T wave inversions in leads V4-V6 and an elevated troponin at 304. Industrial Roofer Dr. Hoffmann from [facility] was consulted and he recommended getting an Echo + medical management. Cardiac catheterization not needed immediately. Her troponin was it's highest at adm : 304, then trended down, so we don't know the peak trop. Echo showed LV apical akinesis and LV ejection fraction of 40-45%. PAP at rest is 51 mmHg (moder pulm HTN) Dr. Hoffmann had agreed that higher level of care was needed. However, there were no open beds in the surrounding area. She will still need a stress test in the outpatient setting to determine if and when an angiogram is needed We have taken her off the transport list. She will be discharged to a care home and follow up with cardiology outpatient. Plan: She need follow up with Cardiology outpatient Continue on Lovenox just prophylactic dose now Continue on daily dose of ASA for PVD and CAD Continue on statin therapy Continue on new metoprolol (5) COPD with exacerbation Impression: Patient has not had formal COPD work up and diagnosis but is being treated for presumed COPD given her long history of tobacco use. Plan: Will obtain PFTs today Continue on duoneb treatments as needed and inhaled steroids Continue on montelukast I discussed smoking cessation with patient She may need outpatient pulmonology management (6) Thoracic compression fracture Impression: Review of previous imaging show chronic multi-level wedge deformities, consistent with longstanding history of back pain. She was started on vitamin D + calcium supplementation for a week before getting Zometa infusion. She gets Odem 5/325 prn to help with her back pain Plan: Pain management with tylenol and dilaudid Continue with PT/OT Cont vitamin D + calcium supplementation (03/04) In one week, Zometa for bone loss (7) PVD (peripheral vascular disease) Impression: Patient has a history of recurrent leg wounds and underwent stenting of the L leg in 09/2022 with significant healing and improvement. Denies any pain, swelling, numbness, or tingling. Plan: Continue on daily ASA + statin (8) Rheumatoid arthritis flare Impression: Patient has a history of rheumatoid arthritis. We believe she may currently be having an RA flare. Plan: Continue on home medication, Sulfasalazine Patient is already scheduled for a follow up next month. (9) Smoker Impression: Patient reports smoking 1/2 ppd but has not smoked for about 5 days prior to admission to the hospital. She declined a nicotine patch when asked but is interested in quitting. Plan: I discussed smoking cessation with patient (10) Dehydration Impression: RESOLVED. Patient's electrolytes have normalized. IV fluids no longer needed (11) Pneumonia Impression: IMPROVED Chest XR showed bilateral infiltrates. This is consistent with patient's shortness of breath, dyspnea, and hypoxia on room air. She completed a 7 day course of Augmentin as well. - Current Meds Current Meds: Current Medications Generic Name Dose Route Start Last Admin Trade Name Freq PRN Reason Stop Dose Admin Acetaminophen 650 mg 02/27/23 23:56 03/03/23 00:33 Acetaminophen 325 Mg Tablet PO 650 mg Q4HR PRN Administration Pain 1 to 4, or Fever Hydrocodone Bitart/Acetaminophen 1 tab 03/06/23 18:46 03/08/23 07:46 Hydrocod/Acetam 5/325 Mg Tablet PO 1 tab Q4HR PRN Administration Moderate Pain (Level 4-6) Amlodipine Besylate 2.5 mg 03/01/23 09:00 03/08/23 07:41 Amlodipine 5 Mg Tablet PO 2.5 mg DAILY LEV Administration Aspirin 81 mg 03/01/23 09:00 03/08/23 07:39 Aspirin Ec 81 Mg Tablet PO 81 mg DAILY LEV Administration Atorvastatin Calcium 80 mg 02/28/23 21:00 03/07/23 21:32 Atorvastatin 40 Mg Tablet PO 80 mg QPM LEV Administration Calcium Carbonate/Glycine 500 mg 03/04/23 14:00 03/08/23 13:04 Calcium Carbonate Chew 500 Mg Tablet PO 500 mg TID LEV Administration Cholecalciferol 800 unit 03/04/23 09:00 03/08/23 07:38 Cholecalciferol 400 Unit Tablet PO 800 unit DAILY LEV Administration Cyanocobalamin 500 mcg 03/01/23 09:00 03/08/23 07:40 Cyanocobalamin 500 Mcg Tablet PO 500 mcg DAILY LEV Administration Diclofenac Sodium 75 mg 02/28/23 21:00 03/08/23 07:[address] 75 Mg Tablet PO 75 mg BID LEV Administration Docusate Sodium 250 - 500 mg 03/05/23 09:00 03/08/23 07:39 Docusate Sodium 250 Mg Capsule PO 500 mg DAILY LEV Administration Enoxaparin Sodium 40 mg 02/28/23 21:00 03/08/23 07:42 Enoxaparin 40 Mg/0.4 Ml Syringe SUBQ 40 mg BID LEV Administration Hydromorphone HCl 0.2 mg 02/27/23 23:56 03/07/23 05:33 Hydromorphone 0.5 Mg/0.5 Ml Syringe IVP 0.2 mg Q2H PRN Administration Pain 8 to 10 Metoprolol Succinate 12.5 mg 02/28/23 21:00 03/08/23 07:40 Metoprolol Succinate 25 Mg Tablet PO 12.5 mg BID LEV Administration Multi-Ingredient Ointment 1 applic 03/04/23 13:48 03/08/23 07:47 Zinc Oxide 20% Oint 30 Gm Tube TOP 1 applic PRN PRN Administration Skin Care Ondansetron HCl 4 mg 02/27/23 23:56 03/07/23 11:52 Ondansetron 4 Mg/2 Ml Vial IVP 4 mg Q6HR PRN Administration Nausea / Vomiting Pantoprazole Sodium 40 mg 03/06/23 09:00 03/08/23 06:59 Pantoprazole 40 Mg Tablet PO 40 mg QDAC LEV Administration Polyethylene Glycol 17 gm 03/04/23 09:00 03/08/23 07:38 Polyethylene Glycol 3350 17 Gm Packet PO 17 gm DAILY LEV Administration Multivit/Folic Acid/Iron 1 tab 02/28/23 17:00 03/08/23 07:39 Vitamin Tablet PO 1 tab DAILYWM LEV Administration Senna 8.6 - 17.2 mg 03/05/23 09:00 03/08/23 07:41 Senna 8.6 Mg Tablet PO 17.2 mg DAILY LEV Administration Simethicone 80 mg 03/06/23 08:30 03/08/23 00:28 Simethicone Chew 80 Mg Tablet PO 80 mg Q6HR PRN Administration Gas Sodium Chloride 10 ml 02/27/23 23:56 03/05/23 21:45 Sodium Chloride Flush 0.9% 10 Ml Syringe IVP 10 ml PRN PRN Administration NEEDED PER PROVIDER ORDERS Sodium Chloride 10 ml 02/28/23 01:00 03/08/23 07:42 Sodium Chloride Flush 0.9% 10 Ml Syringe IVP 10 ml 0100,0900,1700 LEV Administration Sulfasalazine 1,000 mg 02/28/23 21:00 03/08/23 07:42 Sulfasalazine 500 Mg Tablet PO 1,000 mg BID LEV Administration - Lab Result Fish Bone Diagrams: 03/07/23 06:18 03/07/23 06:18 Subjective - Subjective Patient Reports: Resting Comfortably, Other (Feels weak and tired) Objective Vital Signs: Vital Signs - 24 hr 03/07/23 03/08/23 03/08/23 21:29 00:13 08:20 Temperature 36.6 C 36.5 C 36.6 C Heart Rate [ 80 74 85 Brachial] Respiratory 16 20 18 Rate Blood Pressure 143/80 H 116/67 144/89 H [Right Brachial artery] O2 Saturation 92 94 93 Oxygen O2 Source Room air I&O (Last 24 Hrs): Intake and Output Totals x24h 03/06/23 03/07/23 03/08/23 23:59 23:59 23:59 Intake Total 950 700 600 Output Total 525 450 650 Balance 425 250 -50 General: Alert, Oriented x3, Other (Cachectic and appears tired) HEENT: Mucous membr. moist/pink, Other (Muscle wasting and sunken cheeks) Neck: Supple, Other (Muscle wasting) Neuro: Alert, Non Focal, Other (generalized weakness) Cardiovascular: Regular rate Respiratory: No respiratory distress (on suppl O2), Other (poor air mvm but no wheezing or rales) Abdomen: Soft, No tenderness Extremities: No clubbing, No edema, No tenderness/swelling - Results Results: Laboratory Results WBC 3.5 x10^3/uL (4.8-10.8) L 03/07/23 06:18 RBC 4.31 10^6/uL (4.20-5.40) 03/07/23 06:18 Hgb 13.0 g/dL (12.0-16.0) 03/07/23 06:18 Hct 40.5 % (37.0-47.0) 03/07/23 06:18 MCV 94.0 fL (81.0-99.0) 03/07/23 06:18 MCH 30.2 pg (27.0-31.0) 03/07/23 06:18 MCHC 32.1 g/dL (32.0-36.0) 03/07/23 06:18 RDW 14.1 % (12.0-15.0) 03/07/23 06:18 Plt Count 131 10^3/uL (130-450) 03/07/23 06:18 MPV 11.0 fL (7.9-10.8) H 03/07/23 06:18 Neut # (Auto) 2.5 10^3/uL (1.5-6.6) 03/07/23 06:18 Lymph # (Auto) 0.7 10^3/uL (1.5-3.5) L 03/07/23 06:18 Dawes # (Auto) 0.3 10^3/uL (0.0-1.0) 03/07/23 06:18 Eos # (Auto) 0.0 10^3/uL (0.0-0.7) 03/07/23 06:18 Baso # (Auto) 0.0 10^3/uL (0.0-0.1) 03/07/23 06:18 Absolute Nucleated RBC 0.00 x10^3/uL 03/07/23 06:18 Nucleated RBC % 0.0 /100WBC 03/07/23 06:18 Manual Slide Review Indicated 03/04/23 08:15 Platelet Estimate NORMAL (130-450,000) (NORMAL) 03/04/23 08:15 Platelet Morphology NORMAL APPEARANCE (NORMAL) 03/04/23 08:15 RBC Morph Micro Appear NORMAL APPEARANCE (NORMAL) 03/04/23 08:15 PT 10.7 secs (9.9-12.6) 03/07/23 06:18 INR 1.0 (0.8-1.2) 03/07/23 06:18 Sodium 131 mmol/L (135-145) L 03/07/23 06:18 Potassium 4.9 mmol/L (3.5-4.5) H 03/07/23 06:18 Chloride 96 mmol/L (101-111) L 03/07/23 06:18 Carbon Dioxide 32 mmol/L (21-32) 03/07/23 06:18 Anion Gap 3.0 (6-13) L 03/07/23 06:18 BUN 11 mg/dL (6-20) 03/07/23 06:18 Creatinine 0.2 mg/dL (0.6-1.3) L 03/07/23 06:18 Estimated GFR (MDRD) 351 (>89) 03/07/23 06:18 Glucose 83 mg/dL (74-104) 03/07/23 06:18 Lactic Acid 1.3 mmol/L (0.5-2.2) 02/27/23 10:59 Calcium 8.3 mg/dL (8.5-10.3) L 03/07/23 06:18 Phosphorus 2.8 mg/dL (2.5-5.0) 03/01/23 05:15 Magnesium 1.7 mg/dL (1.7-2.3) 03/04/23 08:15 Total Bilirubin 1.1 mg/dL (0.2-1.0) H 02/27/23 10:59 AST 25 IU/L (10-42) 02/27/23 10:59 ALT 20 IU/L (10-60) 02/27/23 10:59 Alkaline Phosphatase 104 IU/L (42-121) 02/27/23 10:59 Troponin I High Sens 101.2 ng/L (2.3-14.8) H* 03/01/23 14:41 B-Natriuretic Peptide 1222 pg/mL (5-100) H 02/27/23 15:36 Total Protein 7.6 g/dL (6.4-8.9) 02/27/23 10:59 Albumin 3.2 g/dL (3.2-5.5) 02/27/23 10:59 Globulin 4.4 g/dL (2.1-4.2) H 02/27/23 10:59 Albumin/Globulin Ratio 0.7 (1.0-2.2) L 02/27/23 10:59 Triglycerides 95 mg/dL (48-352) 03/01/23 05:15 Cholesterol 114 mg/dL (-200) 03/01/23 05:15 LDL Cholesterol, Calc 50 mg/dL (-129) 03/01/23 05:15 VLDL Cholesterol 19 mg/dL 03/01/23 05:15 HDL Cholesterol 45 mg/dL (60-) L 03/01/23 05:15 LDL/HDL Ratio 1.1 (<4.4) 03/01/23 05:15 Cholesterol/HDL Ratio 2.5 (<4.4) 03/01/23 05:15 Lipase 10 U/L (11-82) L 02/27/23 10:59 Vitamin B12 266 pg/mL (180-914) 02/28/23 09:25 Vitamin D 25-Hydroxy 5.0 ng/mL (30.0-100.0) L 02/27/23 10:59 Folate 7.6 ng/mL (5.90 - >24.8) 02/28/23 09:25 Urine Color YELLOW 02/27/23 13:42 Urine Clarity CLEAR (CLEAR) 02/27/23 13:42 Urine pH 6.0 PH (5.0-7.5) 02/27/23 13:42 Ur Specific [place] 1.025 (1.002-1.030) 02/27/23 13:42 Urine Protein TRACE mg/dL (NEGATIVE) 02/27/23 13:42 Urine Glucose (UA) NEGATIVE mg/dL (NEGATIVE) 02/27/23 13:42 Urine Ketones 40 mg/dL (NEGATIVE) H 02/27/23 13:42 Urine Occult Blood NEGATIVE (NEGATIVE) 02/27/23 13:42 Urine Nitrite NEGATIVE (NEGATIVE) 02/27/23 13:42 Urine Bilirubin NEGATIVE (NEGATIVE) 02/27/23 13:42 Urine Urobilinogen 0.2 (NORMAL) E.U./dL (NORMAL) 02/27/23 13:42 Ur Leukocyte Esterase NEGATIVE (NEGATIVE) 02/27/23 13:42 Ur Microscopic Review NOT INDICATED 02/27/23 13:42 Urine Culture Comments NOT INDICATED 02/27/23 13:42 Nasal Adenovirus (PCR) NOT DETECTED 02/27/23 11:06 Nasal B. parapertussis DNA (PCR) NOT DETECTED 02/27/23 11:06 Nasal Coronavir 229E PCR NOT DETECTED 02/27/23 11:06 Nasal Coronavir HKU1 PCR NOT DETECTED 02/27/23 11:06 Nasal Coronavir NL63 PCR NOT DETECTED 02/27/23 11:06 Nasal Coronavir OC43 PCR NOT DETECTED 02/27/23 11:06 Nasal Enterovir/Rhinovir PCR NOT DETECTED 02/27/23 11:06 Nasal Influenza B PCR NOT DETECTED 02/27/23 11:06 Nasal Influenza A PCR NOT DETECTED 02/27/23 11:06 Nasal Parainfluen 1 PCR NOT DETECTED 02/27/23 11:06 Nasal Parainfluen 2 PCR NOT DETECTED 02/27/23 11:06 Nasal Parainfluen 3 PCR NOT DETECTED 02/27/23 11:06 Nasal Parainfluen 4 PCR NOT DETECTED 02/27/23 11:06 Nasal RSV (PCR) NOT DETECTED 02/27/23 11:06 Nasal B.pertussis DNA PCR NOT DETECTED 02/27/23 11:06 Nasal C.pneumoniae (PCR) NOT DETECTED 02/27/23 11:06 Rambo Human Metapneumo PCR NOT DETECTED 02/27/23 11:06 Nasal M.pneumoniae (PCR) NOT DETECTED 02/27/23 11:06 Nasal SARS-CoV-2 (PCR) NOT DETECTED 02/27/23 11:06
[2023-03-08] MEDS ORDERED: HYDROmorphone 0.5 MG/0.5 ML SYRINGE IVP PRN (18:14)
[2023-03-08] MEDS ORDERED: HYDROcod/ACETAM 5/325 MG TABLET PO PRN (18:14)
[2023-03-08] MEDS: ATORVASTATIN 40 MG TABLET PO SCH (21:13)
[2023-03-09] MEDS: SODIUM CHLORIDE FLUSH 0.9% 10 ML SYRINGE IVP SCH ×2 (01:15→10:09)
[2023-03-09] MEDS: CALCIUM CARBONATE CHEW 500 MG TABLET PO SCH ×2 (06:12→13:08)
[2023-03-09] MEDS: PANTOPRAZOLE 40 MG TABLET PO SCH (06:12)
--- NOTE | 2023-03-09 07:36 | Discharge Plan ---
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 She required supplemental O2, she completed a course of antibiotics, was put on medicines for her COPD and for her acute LA. At admission, Cardiology from [facility] advised that an emergency catheterization was not planned because of the infection. Her Echo shows LV apical akinesis with an EF of 40%. She is being discharged for PT and OT rehab at [facility]. She will need outpatient Cardiology management. She is being discharged on new supplemental oxygen. Plan of Treatment: Continue with her medications. Daily PT and OT. Care Goals: Improvement in symptoms and stabilization are the goals. Assessment: The patient understands and is agreeable with the plan. - SNF / MARK Transition Orders Admit to (Facility): [facility] Under the care of (Name): Dr Anguiano ([facility]) Discharge Diagnosis: (1) Acute respiratory failure with hypoxia She required supplemental O2 with target saturation of 90% or above, given the acute LA (2) Acute non-ST elevation myocardial infarction (NSTEMI) EKG showed deep T wave inversions in V4-V6 and an elevated troponin of 304, which then trended down. 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 Hoffmann from [facility] recommended no immediate transfer due to her infection. Echo done here showed LV apical akinesis and LV ejection fraction of 40-45%. She was started on new B- shira and other meds. She will still need a stress test in the outpatient setting to determine if and when an angiogram is needed. (3) COPD with exacerbation She improved on Duonebs, inhaled and iv steroids and Montelukast. (4) Pneumonia She completed a 7 day course of antibiotics (5) Severe protein calorie malnutrition Chronic (6) Generalized weakness She was weak before admission and became very deconditioned while hospitalized. We spread out the frequency of her narcotics, since she gets very sleepy. She needs PT and OT at SNF. (7) Dehydration Resolved with IV fluids (8) PVD (peripheral vascular disease) Patient has a history of recurrent leg wounds and underwent stenting of the L leg in 09/2022 with significant wound healing and improvement. We continued her on daily ASA + statin (9) Thoracic compression fracture She has chronic multi-level wedge deformities, consistent with longstanding history of back pain. She was started on vitamin D + calcium suppl before Zometa infusion, which is recommended for her to get in a week. She gets Tylenol and [place] 5/325 prn to control her back pain. (10) Rheumatoid arthritis flare Patient has a history of rheumatoid arthritis. We continued her home medication, Sulfasalazine (11) Smoker Patient reports smoking 1/2 ppd but is interested in quitting. Medicare Certification Statement: I certify that [facility] longterm care is medically necessary on a continuing basis for any of the conditions for which she/he is receiving care during hospitalization. Notify PCP of admission and forward orders to primary provider for signature. Weight on admission and: Weekly Call PCP immediately if weight increases by: 5 kg Other Notification Orders: Call PCP immediately if patient develops dyspnea, chest pain/tightness or edema. House Bowel Program: Yes Additional Bowel Program Orders: If no BM after 2 days, nurse may give M.O.M. 30ml PO PRN and/or ducolax Supp 1 [place] and/or CODY 250mg P.O., and/or senna 1-2 tabs PO. On day 3 nurse may give repeat above order until residents constipation is resolved. Annual Influenza Vaccine (between Oct 15 and May 14): Yes Two-step PPD per [facility] [phone] or approved exception documents: Yes Treatments & Other Orders: Daily PT and OT Oxygen Orders: Yes, 3 L/min O2 via nasal cannula during any activity and also prn if desats <90% Medication Orders: PLEASE REFER TO THE DISCHARGE MEDICATION LIST. Insulin Orders?: No - Medications New Prescriptions: Ipratropium/Albuterol [Duoneb] 3 ml INH Q4HR PRN #30 ea PRN Reason: Wheezing Simethicone [Mylicon] 80 mg PO Q6HR PRN #20 tab PRN Reason: Gas HYDROcod/ACETAM 5/325 [[place] 5/325] 1 tab PO Q6HR PRN #20 tab PRN Reason: Severe Pain (Level 7-10) Atorvastatin [Lipitor] 80 mg PO QPM #60 tab Nitroglycerin [Nitrostat] 0.4 mg SL [id number] #25 tablet Amlodipine Besylate [Norvasc] 2.5 mg PO DAILY #30 tablet Metoprolol Succinate [Toprol Xl] 12.5 mg PO BID #30 tab Calcium Carbonate [Tums (Calcium Carbonate 500mg)] 500 mg PO TID #90 tab Cyanocobalamin [Vitamin B-12] 500 mcg PO DAILY #30 tab Cholecalciferol [Vitamin D3] 800 unit PO DAILY #60 tab - Diet Type: Geriatric Texture: Regular Liquids: Thin Supplements: 4 oz high protein suppl in evening May have monthly special meal: Yes - Therapies | Activity Therapy: Evaluation | Treat if indicated: PT, OT Rehabilitation Potential: Maximize functional status Activity: Stop PT if she c/o angina Weight Bearing: Full Weight Assistance Devices: Walker Follow Up: Appointment to new PCP Dr Anguiaon, on April 20, 2023 at 1300."
--- NOTE | 2023-03-09 07:41 | DISCHARGE SUMMARY ---
Discharge Summary Admit Date: 02/27/23 Discharge Date: 03/09/23 Discharging Provider: Dr Candice Greer Primary Care Provider: Dr Maribel Anguiano ([place] ) Condition at Discharge: Fair Discharge Disposition: 03 SNF DC/Xfer - HPI History of Present Illness: Jonathan Brennan is a 72 yo F with hx HTN, PVD, rheumatoid arthritis. She lives alone and has a caregiver once a week. She presents to ER with c/o back pain, onset months ago, but worse for the past 6-7 days, not able to get out of bed. Pt had a fall in November 3 mos ago), tripped while using her walker. No recent falls or trauma. Currently pain improved at 4-5/10, feels more comfortable. She also has a cough, pt reports it's tough to cough because of the back pain. Denies fevers/chills. Denies sick contacts. Denies N/V, chest pain. Has not smoked for the past 5 days, prior smokes ~1/2 PPD. Pt reports she has lost approx 70 lbs over the past year. Denies LE swelling. She was de-saturating to low 80s on RA in ER, and was put on supplemental O2. Her exam had marked wheezing. CXR showed bilat infiltrates. CT chest showed se veral vertebral compression fractures, a mucous plug or aspiration into a bronchus, and no description of CHF, but her troponin was elevated at 308. Her adm EKG had signif deep T wave inversions anteriorly in V4-V6. She did eventually admit she had been having anterior chest pain at home as well. CTA chest was neg for PE. ER provider then reviewed case with Dr. Cherry of Cardiology at [facility], who stated that this is not someone he would catheterize urgently. He recommended treating her infection and getting an Echocardiogram and starting medical management for the OR. Her CODE BLUE status is DNR. - HOSPITAL COURSE Hospital Course: (1) Acute respiratory failure with hypoxia She required supplemental O2 with target saturation of 90% or above, given the acute OR. We treated all the underlying causes and she was weaned down to room air at rest. On the day of discharge, she underwent a walking oximetry test. At rest on room air, O2 saturation was 95%. With exertion on room air, her O2 saturation was 85%. On 3 L/min oxygen via nasal cannula, with exertion, her O2 sat improved to 93%. If she was going home, she needs home O2, set at 3 L/min, to use during any exertion to treat her COPD and prevent readmissions. (2) Acute non-ST elevation myocardial infarction (NSTEMI) EKG on admission showed significant deep T wave inversions in leads V4-V6 and an elevated troponin at 304. [employer] Dr. Cherry from [facility] was consulted and he recommended getting an Echo and medical management. Cardiac catheterization was not needed immediately. Her troponin was at t's highest at admission: 304, then trended down, so we don't know the peak troponin. Echo showed LV apical akinesis and LV ejection fraction of 40-45%. PAP at rest is 51 mmHg (moder pulm HTN). She will need a stress test in the outpatient setting to determine if and when an angiogram is needed. We took her off the transfer list, and she was discharged to a SNF for rehab. If she develops angina during rehab, activity should stop. She needs follow up with Cardiology as an outpatient. She is on new SL NTG prn and scheduled Metoprolol, and her aspirin and statin continue. (3) COPD with exacerbation Patient had not had formal COPD work up but was clinically in COPD exacerbation. She was treated with nebs, steroids and Montelukast, and she slowly improved. Just before discharge she underwent PFT testing here, which showed she has severe COPD. I discussed smoking cessation with patient. She may need outpatient Pulmonology management (4) Pneumonia Chest XR showed bilateral infiltrates. She completed a 7 day course of antibiotics. (5) Severe protein calorie malnutrition Patient is severely malnourished with a BMI of 13. She lost 20% of her weight in 2 months and her dentures no longer fit now. Her decreased appetite is multifa ctorial, likely due to a combination of depression, grief, pain, and adjustment disorder as her a few months ago. She reported odynophagia, as well. Surgery was consulted for an EGD, but she had CT instead which showed no esophageal narrowing or food. As a result of severe malnutrition, patient has generalized weakness. (6) Generalized weakness She was already week before admission, only had help in the home 1 day/week. Now she has been hospitalized and has become very deconditioned. We spread out the frequency of her narcotics, since she gets very sleepy. She was discharged to SNF for rehab. (7) PVD (peripheral vascular disease) Patient has a history of recurrent leg wounds and underwent stenting of the L leg in 09/2022 with significant healing and improvement. We continued her daily ASA and statin (8) Thoracic compression fracture She has chronic multi-level wedge deformities, consistent with longstanding history of back pain. She was started on vitamin D + calcium suppl before Zometa infusion, which is recommended for her to get in a week. She gets Tylenol and Mcdowell 5/325 prn to control her back pain. (9) Rheumatoid arthritis flare Patient has a history of rheumatoid arthritis. We thought she was having an RA flare. We continued her home medication, Sulfasalazine (10) Dehydration Resolved after IV fluids given (11) Smoker Patient reports smoking 1/2 ppd but had not smoked for about 5 days prior to a dmission to the hospital. She declined a nicotine patch when asked but is interested in quitting permanently. - ALLERGIES Allergies/Adverse Reactions: Allergies Allergy/AdvReac Type Severity Reaction Status Date / Time hydrochlorothiazide Allergy Anaphylaxis Verified 02/27/23 11:03 hydroxychloroquine Allergy Anaphylaxis Verified 02/27/23 11:03 ibuprofen AdvReac Nausea Verified 02/27/23 11:03 Optifoam Allergy Rash Uncoded 02/27/23 11:03 coban AdvReac Hives Uncoded 02/27/23 11:03 - MEDICATIONS Home Medications: Ambulatory Orders Medication Instructions Recorded Confirmed Diclofenac Sodium Dr [Voltaren] 75 mg PO BID 12/27/22 02/28/23 sulfaSALAzine [Sulfasalazine] 1,000 mg PO BID 12/27/22 02/28/23 Aspirin [Aspirin EC] 81 mg PO DAILY 02/27/23 02/28/23 Acetaminophen [Pain Relief Extra 500 mg PO Q6H PRN 02/28/23 02/28/23 Strength] Multivitamin 1 tab PO DAILY 02/28/23 02/28/23 Amlodipine Besylate [Norvasc] 2.5 mg PO DAILY #30 tablet 03/09/23 Atorvastatin [Lipitor] 80 mg PO QPM #60 tab 03/09/23 Calcium Carbonate [Tums (Calcium 500 mg PO TID #90 tab 03/09/23 Carbonate 500mg)] Cholecalciferol [Vitamin D3] 800 unit PO DAILY #60 tab 03/09/23 Cyanocobalamin [Vitamin B-12] 500 mcg PO DAILY #30 tab 03/09/23 HYDROcod/ACETAM 5/325 [Mcdowell 5/325] 1 tab PO Q6HR PRN #20 tab 03/09/23 Ipratropium/Albuterol [Duoneb] 3 ml INH Q4HR PRN #30 ea 03/09/23 Metoprolol Succinate [Toprol Xl] 12.5 mg PO BID #30 tab 03/09/23 Nitroglycerin [Nitrostat] 0.4 mg SL [id number] #25 tablet 03/09/23 Simethicone [Mylicon] 80 mg PO Q6HR PRN #20 tab 03/09/23 Zinc Oxide 20% Oint [Zinc Oxide] 1 applic TOP PRN PRN each 03/09/23 - PHYSICAL EXAM AT DISCHARGE General Appearance: positive: No acute distress, Alert, Other (Cachectic, sunken eyes and cheeks) ENT: positive: No signs of dehydration Neck: positive: Nml inspection, No JVD Respiratory: positive: No respiratory distress, Breath sounds nml Cardiovascular: positive: Regular rate & rhythm, No murmur Abdomen: positive: Non-tender, Nml bowel sounds, No distention Skin: positive: Warm, Dry Extremities: positive: Non-tender, No pedal edema, Other (Joints of hands have RA defornities) Neurologic/Psychiatric: positive: Oriented x3, CN's nml (2-12), Motor nml - LABS Result Diagrams: 03/07/23 06:18 03/07/23 06:18 - DIAGNOSTIC IMAGING Diagnostic Imaging Results: Final report reviewed - FOLLOW UP Follow Up: She needs a PCP visit and Cardiology appointment, after discharge from SNF. - TIME SPENT Time Spent in Discharge (Minutes): 45
[2023-03-09 08:17] VITALS: BP 135/86; O2SAT 92
[2023-03-09] MEDS ORDERED: ENOXAPARIN 40 MG/0.4 ML SYRINGE SUBQ SCH (09:00)
[2023-03-09] MEDS: CHOLECALCIFEROL 400 UNIT TABLET PO SCH (10:05)
[2023-03-09] MEDS: ASPIRIN EC 81 MG TABLET PO SCH (10:05)
[2023-03-09] MEDS: DICLOFENAC SODIUM DR 75 MG TABLET PO SCH (10:05)
[2023-03-09] MEDS: PRENATAL VITAMIN TABLET PO SCH (10:06)
[2023-03-09] MEDS: METOPROLOL SUCCINATE 25 MG TABLET PO SCH (10:06)
[2023-03-09] MEDS: CYANOCOBALAMIN 500 MCG TABLET PO SCH (10:07)
[2023-03-09] MEDS: amLODIPine 5 MG TABLET PO SCH (10:07)
[2023-03-09] MEDS: DOCUSATE SODIUM 250 MG CAPSULE PO SCH (10:07)
[2023-03-09] MEDS: sulfaSALAzine 500 MG TABLET PO SCH (10:08)
[2023-03-09] MEDS: SENNA 8.6 MG TABLET PO SCH (10:08)
[2023-03-09] MEDS: polyethylene glycoL 3350 17 GM PACKET PO SCH (10:09)
== END 2023-03-09 15:21 | DRG 280 ==
LOC: EDUNIT# → ED 10:21 → SUPCPDRO 10:21 → MS2 23:56
PROVIDERS: ADMIT Student in an Organized Health Care Education/Training Program; ATTEND Internal Medicine
DX: I21.4 Non-ST elevation (NSTEMI) myocardial infarction (principal); E43 Unspecified severe protein-calorie malnutrition; J18.9 Pneumonia, unspecified organism; J96.21 Acute and chronic respiratory failure with hypoxia; S22.060A Wedge compression fracture of T7-T8 vertebra, initial encounter for closed fracture; J44.0 Chronic obstructive pulmonary disease with (acute) lower respiratory infection; J44.1 Chronic obstructive pulmonary disease with (acute) exacerbation; F17.200 Nicotine dependence, unspecified, uncomplicated; R09.02 Hypoxemia; M81.0 Age-related osteoporosis without current pathological fracture; S22.22XA Fracture of body of sternum, initial encounter for closed fracture; R32 Unspecified urinary incontinence; Z68.1 Body mass index [BMI] 19.9 or less, adult; J90 Pleural effusion, not elsewhere classified; F17.210 Nicotine dependence, cigarettes, uncomplicated; E03.9 Hypothyroidism, unspecified; E78.00 Pure hypercholesterolemia, unspecified; X58.XXXA Exposure to other specified factors, initial encounter; I10 Essential (primary) hypertension; R53.1 Weakness; I73.9 Peripheral vascular disease, unspecified; M06.9 Rheumatoid arthritis, unspecified; E86.0 Dehydration; R13.10 Dysphagia, unspecified; W01.0XXA Fall on same level from slipping, tripping and stumbling without subsequent striking against object, initial encounter; Z66 Do not resuscitate; G89.29 Other chronic pain; R00.0 Tachycardia, unspecified; Z79.82 Long term (current) use of aspirin; M47.816 Spondylosis without myelopathy or radiculopathy, lumbar region; M40.204 Unspecified kyphosis, thoracic region; Z74.01 Bed confinement status; J43.9 Emphysema, unspecified; L98.9 Disorder of the skin and subcutaneous tissue, unspecified; F32.A Depression, unspecified; F43.20 Adjustment disorder, unspecified
CPT/HCPCS: 36415; 71045; 71260; 71275; 72128; 72131; 80048; 80053; 80061; 81003; 82306; 82607; 82746; 83605; 83690; 83735; 83880; 84100; 84484; 85025; 85610; 87633; 93005; 93307; 94640; 94761; 96361; 96365; 96366; 96368; 96372; 96375; 96376; 97162; 97166; 99285; A9270; J1170; J1650; J7512; Q9963; Q9967; 81001; 83721; 87086

== ENCOUNTER 2023-03-09 15:35 | Outpatient (CLI) | payer MEDICARE, OTHER | END 2023-03-09 23:59 | LOC: EMS 15:35 | PROVIDERS: ATTEND Internal Medicine | DX: M48.50XA Collapsed vertebra, not elsewhere classified, site unspecified, initial encounter for fracture (principal); M06.9 Rheumatoid arthritis, unspecified; J44.9 Chronic obstructive pulmonary disease, unspecified; Z74.01 Bed confinement status; J18.9 Pneumonia, unspecified organism; Z99.81 Dependence on supplemental oxygen | CPT/HCPCS: A0425; A0429 ==

== ENCOUNTER 2023-04-04 11:31 | Outpatient (CLI) | payer MEDICARE, OTHER | END 2023-04-04 23:59 | disposition critical access hospital (66) | LOC: EMS 11:31 | DX: R10.84 Generalized abdominal pain (principal); R10.817 Generalized abdominal tenderness; R14.0 Abdominal distension (gaseous); R00.0 Tachycardia, unspecified; R19.5 Other fecal abnormalities; R62.7 Adult failure to thrive | CPT/HCPCS: A0425; A0429 ==

== ENCOUNTER 2023-04-04 11:39 | Observation (INO) | payer MEDICARE, OTHER ==
--- NOTE | 2023-04-04 12:15 | ED Physician Documentation ---
History of Present Illness - Stated complaint Stated Complaint: ABD PX - Chief complaint Chief Complaint: Abd Pain - History obtained from History obtained from: Patient - Additonal information Additional information: Patient is a 72-year-old female who presents to the emergency department complaint of abdominal pain for the past 2 days. She is unable to describe any certain place. She states she has had normal bowel movements. She is currently staying at [facility]. She was admitted last month for pneumonia, likely undiagnosed COPD with exacerbation and oxygen requirements. She also had an NSTEMI. She denies any chest pain or shortness of breath today. She is on 3 L nasal cannula which is her baseline. Denies any vomiting or diarrhea. She is unable to describe the pain. She states she does not notice if anything makes it better or worse. When she was recently in the hospital she was having difficulty swallowing anything but pured foods, EGD was recommended but per the surgical consult note she refused this. Review of Systems Constitutional: denies: Fever, Chills Respiratory: denies: Cough GI: reports: Abdominal Swelling. 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 PIPE MAKER: Hysterectomy - Present Medications Home Medications: Ambulatory Orders Medication Instructions Recorded Confirmed Diclofenac Sodium Dr [Voltaren] 75 mg PO BID 12/27/22 02/28/23 sulfaSALAzine [Sulfasalazine] 1,000 mg PO BID 12/27/22 02/28/23 Aspirin [Aspirin EC] 81 mg PO DAILY 02/27/23 02/28/23 Acetaminophen [Pain Relief Extra 500 mg PO Q6H PRN 02/28/23 02/28/23 Strength] Multivitamin 1 tab PO DAILY 02/28/23 02/28/23 Amlodipine Besylate [Norvasc] 2.5 mg PO DAILY #30 tablet 03/09/23 Atorvastatin [Lipitor] 80 mg PO QPM #60 tab 01/24/24 Calcium Carbonate [Tums (Calcium 500 mg PO TID #90 tab 03/09/23 Carbonate 500mg)] Cholecalciferol [Vitamin D3] 800 unit PO DAILY #60 tab 03/09/23 Cyanocobalamin [Vitamin B-12] 500 mcg PO DAILY #30 tab 03/09/23 HYDROcod/ACETAM 5/325 [Colona 5/325] 1 tab PO Q6HR PRN #20 tab 03/09/23 Ipratropium/Albuterol [Duoneb] 3 ml INH Q4HR PRN #30 ea 03/09/23 Metoprolol Succinate [Toprol Xl] 12.5 mg PO BID #30 tab 03/09/23 Nitroglycerin [Nitrostat] 0.4 mg SL [id number] #25 tablet 03/09/23 Simethicone [Mylicon] 80 mg PO Q6HR PRN #20 tab 03/09/23 Zinc Oxide 20% Oint [Zinc Oxide] 1 applic TOP PRN PRN each 03/09/23 - Allergies Allergies/Adverse Reactions: Allergies Allergy/AdvReac Type Severity Reaction Status Date / Time hydrochlorothiazide Allergy Anaphylaxis Verified 04/04/23 11:48 hydroxychloroquine Allergy Anaphylaxis Verified 04/04/23 11:48 ibuprofen AdvReac Nausea Verified 04/04/23 11:48 Optifoam Allergy Rash Uncoded 04/04/23 11:48 coban AdvReac Hives Uncoded 04/04/23 11:48 - Social History Does the pt smoke?: Yes Smoking Status: Current every day smoker Does the pt drink ETOH?: Yes Does the pt have substance abuse?: No - Immunizations Immunizations are current?: Yes - POLST Patient has POLST: Yes PD ED PE NORMAL - Vitals Vital signs reviewed: Yes - General General: Alert and oriented X 3, No acute distress, Other (Thin, cachectic female) - HEENT HEENT: PERRL, EOMI, Other (Dry lips and tongue) - Neck Neck: Supple, no meningeal sign - Cardiac Cardiac: Other (Tachycardic) - Respiratory Respiratory: No respiratory distress, Other (Diminished breath sounds and mild wheezing bilaterally) - Abdomen Abdomen: Soft, Other (Diffuse tenderness to palpation with moderate distention) - Back Back: No CVA TTP - Derm Derm: Warm and dry - Extremities Extremities: No edema - Neuro Neuro: Alert and oriented X 3 Results - Vitals Vitals: Vital Signs - 24 hr 04/04/23 04/04/23 04/04/23 11:48 11:54 13:54 Temperature 36.4 C L 36.4 C L Heart Rate 90 120 H 120 H Respiratory 22 22 22 Rate Blood Pressure 126/80 126/80 143/90 H O2 Saturation 96 96 92 If not protocol 4 4 : Oxygen Flow, liters/minute 04/04/23 04/04/23 04/04/23 15:00 15:15 15:25 Temperature Heart Rate 147 H 118 H 146 H Respiratory 30 H 26 H 24 Rate Blood Pressure 131/73 H 109/91 H 110/75 O2 Saturation 100 100 100 If not protocol 15 10 15 : Oxygen Flow, liters/minute 04/04/23 04/04/23 15:46 16:40 Temperature Heart Rate 137 H 119 H Respiratory 22 25 H Rate Blood Pressure 116/76 111/82 H O2 Saturation 97 95 If not protocol 6 : Oxygen Flow, liters/minute Oxygen O2 Source Simple Mask - Labs Labs: Laboratory Tests 04/04/23 04/04/23 04/04/23 12:14 12:14 12:14 WBC 6.0 RBC 4.82 Hgb 14.0 Hct 45.6 MCV 94.6 MCH 29.0 MCHC 30.7 L RDW 14.6 Plt Count 391 MPV 9.9 Neut # (Auto) Not Reportable Lymph # (Auto) Not Reportable Wilcox # (Auto) Not Reportable Eos # (Auto) Not Reportable Baso # (Auto) Not Reportable Absolute Nucleated RBC Not Reportable Total Counted 100 Band Neuts % (Manual) 32 H Abnorm Lymph % (Manual) 0 Metamyelocytes % 2 H Myelocytes % 2 H Nucleated RBC % Not Reportable Neutrophils # (Manual) 5.0 Lymphocytes # (Manual) 0.5 L Monocytes # (Manual) 0.2 Eosinophils # (Manual) 0.0 Basophils # (Manual) 0.0 Differential Comment MANUAL DIFFERENTIAL Platelet Morphology NORMAL APPEARANCE RBC Morph Micro Appear 2+ ANISOCYTOSIS Sodium 139 Potassium 3.5 Chloride 96 L Carbon Dioxide 34 H Anion Gap 9.0 BUN 34 H Creatinine 0.3 L Estimated GFR (MDRD) 220 Glucose 57 L* Calcium 10.1 Phosphorus 4.5 Magnesium 2.0 Total Bilirubin 0.8 AST 25 ALT 15 Alkaline Phosphatase 178 H Troponin I High Sens Total Protein 6.4 Albumin 2.5 L Globulin 3.9 Albumin/Globulin Ratio 0.6 L Lipase < 10 L 04/04/23 12:15 WBC RBC Hgb Hct MCV MCH MCHC RDW Plt Count MPV Neut # (Auto) Lymph # (Auto) Wilcox # (Auto) Eos # (Auto) Baso # (Auto) Absolute Nucleated RBC Total Counted Band Neuts % (Manual) Abnorm Lymph % (Manual) Metamyelocytes % Myelocytes % Nucleated RBC % Neutrophils # (Manual) Lymphocytes # (Manual) Monocytes # (Manual) Eosinophils # (Manual) Basophils # (Manual) Differential Comment Platelet Morphology RBC Morph Micro Appear Sodium Potassium Chloride Carbon Dioxide Anion Gap BUN Creatinine Estimated GFR (MDRD) Glucose Calcium Phosphorus Magnesium Total Bilirubin AST ALT Alkaline Phosphatase Troponin I High Sens 16.0 H* Total Protein Albumin Globulin Albumin/Globulin Ratio Lipase - Rads (name of study) CT abdomen pelvis Relevant Findings:: Final report received, See rad report PD Medical Decision Making - ED course Complexity details: reviewed results, re-evaluated patient, considered differential, d/w patient, d/w family, d/w wardrobe image consultant ED course: 72-year-old female presents to the emergency department with abdominal pain. She has a perforated abdominal viscus. Unclear where this arose. The patient had a recent NSTEMI as well. Recent pneumonia. She is oxygen dependent COPD/emphysema. Discussed the case with Dr. Alberto, general surgery who came and evaluated the patient. Also discussed with Dr. Francois, hospitalist to evaluate the patient as well. After discussion with the patient and her family, the patient states that she does not want to have any surgical interventions performed she just wants to be kept comfortable. She does understand that this perforation and infection will likely result in her . She states that she had wanted to be on hospice prior to this. We will admit the patient to the hospital for pain control, IV fluids and comfort care. This document was made in part using voice recognition software. While efforts are made to proofread this document, sound alike and grammatical errors may occur. PROCEDURE: Abdomen/Pelvis W INDICATIONS: diffuse abd pain CONTRAST: Omni 300 100ml TECHNIQUE: After the administration of intravenous contrast, a CT scan of the abdomen and pelvis was performed. Images were recorded and evaluated at appropriate window settings. Reformats: coronal and sagittal. 72-year-old female presents to the emergency department with abdominal pain. She has a perforated abdominal viscus. Unclear where this arose. I wentFor radiation dose reduction, the following was used: automated exposure control, adjustment of mA and/or kV according to patient size. COMPARISON: CT 02/27/2023. FINDINGS: Image quality: Diagnostic. Lower chest: Please see same day chest CT. Liver: No solid mass. Gallbladder and biliary tree: No radiopaque stones or wall thickening. No biliary dilation. Spleen: No splenomegaly. Pancreas: No pancreatic ductal dilation. Adrenals: No adrenal nodule. Kidneys and ureters: No hydronephrosis. No renal cystic lesion which requires follow up. No solid mass. Stomach, bowel and peritoneum: Bowel perforation, of unclear etiology. Blue fecal debris within the abdomen, with moderate volume pneumoperitoneum. There is abnormal distention of bowel in the left mid abdomen, with severe bowel wall edema. No discernible transition point. Peritoneal thickening, concerning for peritonitis. Lymph nodes: No central or retroperitoneal adenopathy. Vessels: No infrarenal aortic aneurysm. PELVIS Reproductive organs: Unremarkable. Bladder: No abnormal wall thickening, accounting for underdistention. Pelvic lymph nodes: No pelvic adenopathy by size criteria. Bones: Multilevel compression deformities, stable from prior. Other: No significant ventral or inguinal hernia. IMPRESSION: Bowel perforation, unclear etiology. Blue fecal debris within the abdomen, with moderate volume pneumoperitoneum and severe bowel edema. Findings are concerning for early bowel necrosis. Additionally, there are signs of peritonitis. Correlate with lactate. Please see same day dedicated chest CT. Above discussed with Demetrio Green MD at 4:12 PM on 04/04/2023. Departure - Departure Disposition: [facility] DC/Xfer Clinical Impression: Perforated abdominal viscus, Tachycardia Condition: Poor Discharge Date/Time: 04/04/23 17:30
[2023-04-04 12:21] LABS: BASOPHILS % (AUTO) 2.7 %; HCT - HEMATOCRIT 45.6 % (37.0-47.0); LYMPHOCYTES % (AUTO) 6.4 %; MEAN CORPUSCULAR HGB CONC 30.7 g/dL (32.0-36.0); MEAN CORPUSCULAR VOLUME 94.6 fL (81.0-99.0); MEAN PLATELET VOLUME 9.9 fL (7.9-10.8); MONOCYTES % (AUTO) 4.8 %; NEUTROPHILS % (AUTO) 83.9 %; PLT - PLATELET COUNT 391 10^3/uL (130-450); RED BLOOD COUNT 4.82 10^6/uL (4.20-5.40); RED CELL DISTRIBUTION WIDTH 14.6 % (12.0-15.0)
[2023-04-04 12:23] LABS: ABNORMAL LYMPHS % (MANUAL) 0 %
[2023-04-04] MEDS: SODIUM CHLORIDE 0.9% 1,000 ML IV STA ×3 (12:28→13:45)
[2023-04-04 12:35] LABS: ALBUMIN 2.5 g/dL (3.2-5.5); ALBUMIN/GLOBULIN RATIO 0.6 (1.0-2.2); ALKALINE PHOSPHATASE 178 IU/L (42-121); ALT ALANINE AMINOTRANSFERASE 15 IU/L (10-60); AST ASPARTATE AMINOTRANSFERASE 25 IU/L (10-42); BILIRUBIN,TOTAL 0.8 mg/dL (0.2-1.0); BUN - BLOOD UREA NITROGEN 34 mg/dL (6-20); CALCIUM 10.1 mg/dL (8.5-10.3); CARBON DIOXIDE - CO2 34 mmol/L (21-32); CHLORIDE 96 mmol/L (101-111); CREATININE 0.3 mg/dL (0.6-1.3); GFR - MDRD 220 (>89); GLUCOSE 57 mg/dL (74-104); LIPASE < 10 U/L (11-82); POTASSIUM 3.5 mmol/L (3.5-4.5); SODIUM 139 mmol/L (135-145); TOTAL PROTEIN 6.4 g/dL (6.4-8.9)
[2023-04-04] MEDS ORDERED: iohexoL-300 100 ML VIAL ONE (12:43)
[2023-04-04] MEDS ORDERED: DIATRIZOATE MEGLU/DIATRIZO SOD 30 ML BOTTLE PO ONE (12:44)
[2023-04-04 12:47] LABS: BAND NEUTROPHILS % (MANUAL) 32 %; LYMPHOCYTES # (MANUAL) 0.5 10^3/uL (1.5-3.5); LYMPHOCYTES % (MANUAL) 8 %; METAMYELOCYTES % (MANUAL) 2 %; MONOCYTES # (MANUAL) 0.2 10^3/uL (0.0-1.0); MYELOCYTES % (MANUAL) 2 %
[2023-04-04 12:48] LABS: DIFFERENTIAL COMMENT MANUAL DIFFERENTIAL; PLATELET MORPHOLOGY NORMAL APPEARANCE (NORMAL); RBC MORPHOLOGY (MULTIPLE) 2+ ANISOCYTOSIS (NORMAL)
[2023-04-04] MEDS: diltiaZEM INJ 5 MG/ML VIAL IVP STA (13:40)
[2023-04-04] MEDS: MORPHINE 2 MG/ML CARPUJECT IVP STA ×2 (14:19→16:28)
[2023-04-04 14:27] LABS: PHOSPHORUS 4.5 mg/dL (2.5-5.0)
[2023-04-04] MEDS: diltiaZEM INJ 125 MG in DEXTROSE 5% 100 ML IV STA (14:44)
--- NOTE | 2023-04-04 16:18 | CT Report ---
PROCEDURE: Abdomen/Pelvis W INDICATIONS: diffuse abd pain CONTRAST: Omni 300 100ml TECHNIQUE: After the administration of intravenous contrast, a CT scan of the abdomen and pelvis was performed. Images were recorded and evaluated at appropriate window settings. Reformats: coronal and sagittal. F or radiation dose reduction, the following was used: automated exposure control, adjustment of mA and /or kV according to patient size. COMPARISON: CT 02/27/2023. FINDINGS: Image quality: Diagnostic. Lower chest: Please see same day chest CT. Liver: No solid mass. Gallbladder and biliary tree: No radiopaque stones or wall thickening. No biliary dilation. Spleen: No splenomegaly. Pancreas: No pancreatic ductal dilation. Adrenals: No adrenal nodule. Kidneys and ureters: No hydronephrosis. No renal cystic lesion which requires follow up. No solid mas s. Stomach, bowel and peritoneum: Bowel perforation, of unclear etiology. Blue fecal debris within the abdomen, with moderate volume pneumoperitoneum. There is abnormal distention of bowel in the left mid abdomen, with severe bowel wall edema. No discernible transition point. Peritoneal thickening, joe rning for peritonitis. Lymph nodes: No central or retroperitoneal adenopathy. Vessels: No infrarenal aortic aneurysm. PELVIS Reproductive organs: Unremarkable. Bladder: No abnormal wall thickening, accounting for underdistention. Pelvic lymph nodes: No pelvic adenopathy by size criteria. Bones: Multilevel compression deformities, stable from prior. Other: No significant ventral or inguinal hernia. IMPRESSION: Bowel perforation, unclear etiology. Blue fecal debris within the abdomen, with moderate volume pneu moperitoneum and severe bowel edema. Findings are concerning for early bowel necrosis. Additionally, there are signs of peritonitis. Correlate with lactate. Please see same day dedicated chest CT. Above discussed with Demetrio Green MD at 4:12 PM on 04/04/2023. Reviewed by: Lux Dunham MD on 04/04/2023 4:17 PM PST Approved by: Lux Dunham MD on 04/04/2023 4:17 PM PST Station ID: [id number]
[2023-04-04] MEDS: PIPERACILLIN/TAZOBACTAM 3.375 GM in SODIUM CHLORIDE 0.9% MINIBAG 100 ML IV STA (16:29)
[2023-04-04] MEDS: iohexoL-300 100 ML VIAL IVP ONE (16:38)
--- NOTE | 2023-04-04 16:44 | HISTORY & PHYSICAL EXAMINATION ---
Chief Complaint - Chief Complaint Chief Complaint: Abdominal pain History of Present Illness - Admitted From Admitted From:: Emergency Room - History Obtained From Records Reviewed: Previous hospitalizations History obtained from: Patient - History of Present Illness HPI Comment/Other: Jonathan is a 72 year old female who smokes daily, with a history of peripheral vascular disease, NSTEMI, and failure to thrive who presents to the ED with abdominal pain, diarrhea, and decreased appetite for the past few days. She feels bloated and overall week. A CT was done that showed bowel perforation with unclear etiology. Blue fecal debris within the abdomen, with moderate volume pneuromperitoneum and severe bowel eema. Findings are concerning for early bowel necrosis. Additinally, there are signs of peritonitis. General surgery was consulted, and spoke to the patient at length about her prognosis. Patient was given options for her care and confirmed she did not want to continue with surgery. We will admit her for comfort care. History - Past Medical History Cardiovascular: reports: Hypertension, High cholesterol, Peripheral Vascular Disease, Other Respiratory: reports: COPD, Emphysema Neuro: reports: None Endocrine/Autoimmune: reports: HyPOthyroidism GI: reports: None EXTENDED INSURANCE CLERK: reports: None : reports: None HEENT: reports: None Psych: reports: None Musculoskeletal: reports: Rheumatoid arthritis, Other Derm: reports: None MRSA Hx?: No - Past Surgical History /EXTENDED INSURANCE CLERK: reports: Hysterectomy - Family & Social History Living Situation: With spouse/s.o. - Substance History Use: Uses substance without health or social issues: Tobacco - POLST Patient has POLST: Yes POLST Status: DNR Meds/Allgy - Home Medications Home Medications: Ambulatory Orders Medication Instructions Recorded Confirmed Diclofenac Sodium Dr [Voltaren] 75 mg PO BID 12/27/22 02/28/23 sulfaSALAzine [Sulfasalazine] 1,000 mg PO BID 12/27/22 02/28/23 Aspirin [Aspirin EC] 81 mg PO DAILY 02/27/23 02/28/23 Acetaminophen [Pain Relief Extra 500 mg PO Q6H PRN 02/28/23 02/28/23 Strength] Multivitamin 1 tab PO DAILY 02/28/23 02/28/23 Amlodipine Besylate [Norvasc] 2.5 mg PO DAILY #30 tablet 03/09/23 Atorvastatin [Lipitor] 80 mg PO QPM #60 tab 03/09/23 Calcium Carbonate [Tums (Calcium 500 mg PO TID #90 tab 03/09/23 Carbonate 500mg)] Cholecalciferol [Vitamin D3] 800 unit PO DAILY #60 tab 03/09/23 Cyanocobalamin [Vitamin B-12] 500 mcg PO DAILY #30 tab 03/09/23 HYDROcod/ACETAM 5/325 [[place] 5/325] 1 tab PO Q6HR PRN #20 tab 03/09/23 Ipratropium/Albuterol [Duoneb] 3 ml INH Q4HR PRN #30 ea 03/09/23 Metoprolol Succinate [Toprol Xl] 12.5 mg PO BID #30 tab 03/09/23 Nitroglycerin [Nitrostat] 0.4 mg SL [id number] #25 tablet 03/09/23 Simethicone [Mylicon] 80 mg PO Q6HR PRN #20 tab 03/09/23 Zinc Oxide 20% Oint [Zinc Oxide] 1 applic TOP PRN PRN each 03/09/23 - Allergies Allergies/Adverse Reactions: Allergies Allergy/AdvReac Type Severity Reaction Status Date / Time hydrochlorothiazide Allergy Anaphylaxis Verified 04/04/23 11:48 hydroxychloroquine Allergy Anaphylaxis Verified 04/04/23 11:48 ibuprofen AdvReac Nausea Verified 04/04/23 11:48 Optifoam Allergy Rash Uncoded 04/04/23 11:48 coban AdvReac Hives Uncoded 04/04/23 11:48 Review of Systems - Constitutional Constitutional: reports: Fatigue, Weakness, Poor appetite, Weight loss - Eyes Eyes: denies: Blurred vision, Spots in vision, Field loss, Vision loss - Ears, Nose & Throat Ears, Nose & Throat: reports: Nasal discharge. denies: Ear pain, Nasal congestion, Postnasal drainage, Sore throat - Cardiovascular Cariovascular: reports: Exertional dyspnea. denies: Palpitations, Chest pain, Edema, Lightheadedness, Syncope - Respiratory Respiratory: reports: SOB at rest, SOB with exertion. denies: Cough, Sputum production, Wheezing, Snoring - Gastrointestinal Gastrointestinal: reports: Abdominal pain. denies: Constipation, Diarrhea, Change in bowel habits, Rectal bleeding, Nausea, Vomiting - Genitourinary Genitourinary: denies: Frequency, Incontinence, Flank pain - Musculoskeletal Musculoskeletal: denies: Muscle pain, Back pain, Muscle aches, Stiffness - Integumentary Integumentary: denies: Rash, Pruritis, Pigment changes, Nail changes - Neurological Neurological: reports: General weakness. denies: Headache, Numbness, Memory problems - Psychiatric Psychiatric: denies: Depression, Anxiety, Suicidal - Endocrine Endocrine: denies: Polyuria, Polydypsia, Polyphagia - Hematologic/Lymphatic Hematologic/Lymphatic: denies: Anemia, Bruising Exam - Vital Signs Reviewed Vital Signs: Yes Vital Signs: Vital Signs x48h Temp Pulse Resp BP Pulse Ox O2 Flow Rate 04/04/23 16:40 119 H 25 H 111/82 H 95 6 04/04/23 15:46 137 H 22 116/76 97 04/04/23 15:25 146 H 24 110/75 100 15 04/04/23 15:15 118 H 26 H 109/91 H 100 10 04/04/23 15:00 147 H 30 H 131/73 H 100 15 04/04/23 13:54 120 H 22 143/90 H 92 4 04/04/23 11:54 36.4 C L 120 H 22 126/80 96 4 04/04/23 11:48 36.4 C L 90 22 126/80 96 - Physical Exam General Appearance: positive: Moderate distress, Other (cachectic) Eyes Bilateral: positive: Normal inspection ENT: positive: Dry mucous membranes Neck: positive: No JVD, Trachea midline Respiratory: positive: Other (SOB) Cardiovascular: positive: Tachycardia Abdomen: positive: No organomegaly, No distention Skin: positive: Dry, Pallor Extremities: positive: Non-tender Neurologic/Psychiatric: positive: Oriented x3 Conclusion/Plan - Problem List (1) Perforated abdominal viscus Conclusion/Plan: CT of the abdomen showed peritonitis, free fluid, a pneumoperitoneum with early signs of bowel necrosis. Given this catastrophic CT, general surgery was consulted and explained to the patient that given her high risk stratification, she may not survive a surgery. Patient had a recent NSTEMI and is at risk for a repeat [place]. If she were to have the surgery, it is likely that she would need to be on a ventilator and have a prolonged recovery given her malnutrition. She is aware of her options and has chosen to proceed with comfort care. Patient has a friend at the bedside who is helping her contact family members. She will be NPO other than small sips of water and ice chips. - Comfort care (2) Acute respiratory failure with hypoxia Conclusion/Plan: Patient is on home oxygen of 3L. Given her status of comfort care, we will stop all supplemental oxygen. - Lab Results Fish Bones: 04/04/23 12:14 04/04/23 12:14
[2023-04-04] MEDS ORDERED: ONDANSETRON 4 MG/2 ML VIAL IVP PRN (16:46)
[2023-04-04] MEDS ORDERED: ONDANSETRON ODT 4 MG TABLET TL PRN (16:46)
[2023-04-04] MEDS ORDERED: ACETAMINOPHEN 160 MG/5 ML SUSP UDC PO PRN (16:46)
[2023-04-04] MEDS ORDERED: GLYCOPYRROLATE 1 MG/5 ML VIAL SUBQ PRN (16:46)
--- NOTE | 2023-04-04 17:15 | CONSULTATION NOTE ---
Referring Provider Name of Referring Provider:: ED (Peter) Consult Date: 04/04/23 (pneumoperitoneum) Chief Complaint - Chief Complaint Chief Complaint: I don't feel good History of Present Illness - Admitted From Admitted From:: ED, recently discharged to [facility] - History Obtained From Records Reviewed: yes History obtained from: patient, Karla (friend), ED provider, medicine team (recently cared for pt) Exam Limitations: patient is in respiratory distress - History of Present Illness HPI Comment/Other: This is a 80-year-old female who states that she has not been feeling good for "about a week", and has felt acutely worse for the last 2 days. She feels like initially she had a sharp pain in her lower abdomen and now has pain throughout her abdomen. She also endorses feeling bloated. She denies any nausea or vomiting and states she is very thirsty. She denies any constipation, diarrhea, or blood in her stool. She does not think she has had any fevers or chills, but states "I just feel bad". Notably, the patient was admitted last month with pneumonia, and discharged on 3 L of oxygen continuously to [facility]. She also had an NSTEMI during that hospital stay and was recommended for outpatient risk stratification. History - Past Medical History Cardiovascular: reports: Hypertension, High cholesterol, Peripheral Vascular Disease, Other Respiratory: reports: COPD, Emphysema, Pneumonia, Shortness of breath, Other (3 L oxygen, home O2) Neuro: reports: None Endocrine/Autoimmune: reports: HyPOthyroidism GI: reports: None APPLIANCE FIXER: reports: None : reports: None HEENT: reports: None Psych: reports: None Musculoskeletal: reports: Rheumatoid arthritis, Other Derm: reports: None MRSA Hx?: No - Past Surgical History Ortho: reports: Other (Left elbow surgery as a child) /APPLIANCE FIXER: reports: Hysterectomy - Family & Social History Living arrangement: Assisted living Social History Notes: Patient presents with her best friend Vannessa who helps her make medical decisions. - Substance History Use: Uses substance without health or social issues: Tobacco - POLST Patient has POLST: Yes Meds/Allgy - Home Medications Home Medications: Ambulatory Orders Medication Instructions Recorded Confirmed Diclofenac Sodium Dr [Voltaren] 75 mg PO BID 12/27/22 02/28/23 sulfaSALAzine [Sulfasalazine] 1,000 mg PO BID 12/27/22 02/28/23 Aspirin [Aspirin EC] 81 mg PO DAILY 02/27/23 02/28/23 Acetaminophen [Pain Relief Extra 500 mg PO Q6H PRN 02/28/23 02/28/23 Strength] Multivitamin 1 tab PO DAILY 02/28/23 02/28/23 Amlodipine Besylate [Norvasc] 2.5 mg PO DAILY #30 tablet 03/09/23 Atorvastatin [Lipitor] 80 mg PO QPM #60 tab 03/09/23 Calcium Carbonate [Tums (Calcium 500 mg PO TID #90 tab 03/09/23 Carbonate 500mg)] Cholecalciferol [Vitamin D3] 800 unit PO DAILY #60 tab 03/09/23 Cyanocobalamin [Vitamin B-12] 500 mcg PO DAILY #30 tab 03/09/23 HYDROcod/ACETAM 5/325 [[place] 5/325] 1 tab PO Q6HR PRN #20 tab 03/09/23 Ipratropium/Albuterol [Duoneb] 3 ml INH Q4HR PRN #30 ea 03/09/23 Metoprolol Succinate [Toprol Xl] 12.5 mg PO BID #30 tab 03/09/23 Nitroglycerin [Nitrostat] 0.4 mg SL [id number] #25 tablet 03/09/23 Simethicone [Mylicon] 80 mg PO Q6HR PRN #20 tab 03/09/23 Zinc Oxide 20% Oint [Zinc Oxide] 1 applic TOP PRN PRN each 03/09/23 - Allergies Allergies/Adverse Reactions: Allergies Allergy/AdvReac Type Severity Reaction Status Date / Time hydrochlorothiazide Allergy Anaphylaxis Verified 04/04/23 11:48 hydroxychloroquine Allergy Anaphylaxis Verified 04/04/23 11:48 ibuprofen AdvReac Nausea Verified 04/04/23 11:48 Optifoam Allergy Rash Uncoded 04/04/23 11:48 coban AdvReac Hives Uncoded 04/04/23 11:48 Review of Systems - Constitutional Constitutional: reports: Other (Review of systems is difficult to obtain as the patient is a poor historian and is in moderate respiratory distress.) Exam - Vital Signs Reviewed Vital Signs: Yes Vital Signs: Vital Signs x48h Temp Pulse Resp BP Pulse Ox O2 Flow Rate 04/04/23 16:40 119 H 25 H 111/82 H 95 6 04/04/23 15:46 137 H 22 116/76 97 04/04/23 15:25 146 H 24 110/75 100 15 04/04/23 15:15 118 H 26 H 109/91 H 100 10 04/04/23 15:00 147 H 30 H 131/73 H 100 15 04/04/23 13:54 120 H 22 143/90 H 92 4 04/04/23 11:54 36.4 C L 120 H 22 126/80 96 4 04/04/23 11:48 36.4 C L 90 22 126/80 96 - Physical Exam General Appearance: positive: Moderate distress, Other (Cachectic body habitus) Eyes Bilateral: positive: PERRL, EOMI ENT: positive: Dry mucous membranes, Other (Oxygen mask in place) Neck: positive: Trachea midline Respiratory: positive: Chest non-tender, Other (tachypneic). negative: No respiratory distress Cardiovascular: positive: Tachycardia, Other (Patient appears to be in atrial fibrillation on the monitor) Peripheral Pulses: positive: 1+ Abdomen: positive: Tenderness (Diffuse moderate tenderness to palpation), Other (Abdomen is rigid, tympanic, and her abdominal wall appears thin and erythematous. There is no induration or edema of the abdominal wall to indicate a cellulitis.). negative: No distention (Marked distention) Skin: positive: Pallor Extremities: positive: Full ROM Neurologic/Psychiatric: positive: Oriented x3 Conclusion and Plan - Lab Results Laboratory Results 04/04/23 12:15: Troponin I High Sens 16.0 H* 04/04/23 12:14: Phosphorus 4.5, Magnesium 2.0 04/04/23 12:14: Sodium 139, Potassium 3.5, Chloride 96 L, Carbon Dioxide 34 H, Anion Gap 9.0, BUN 34 H, Creatinine 0.3 L, Estimated GFR (MDRD) 220, Glucose 57 L*, Calcium 10.1, Total Bilirubin 0.8, AST 25, ALT 15, Alkaline Phosphatase 178 H, Total Protein 6.4, Albumin 2.5 L, Globulin 3.9, Albumin/Globulin Ratio 0.6 L, Lipase < 10 L 04/04/23 12:14: WBC 6.0, RBC 4.82, Hgb 14.0, Hct 45.6, MCV 94.6, MCH 29.0, MCHC 30.7 L, RDW 14.6, Plt Count 391, MPV 9.9, Neut # (Auto) Not Reportable, Lymph # (Auto) Not Reportable, [place] # (Auto) Not Reportable, Eos # (Auto) Not R eportable, Baso # (Auto) Not Reportable, Absolute Nucleated RBC Not Reportable, Total Counted 100, Band Neuts % (Manual) 32 H, Abnorm Lymph % (Manual) 0, Metamyelocytes % 2 H, Myelocytes % 2 H, Nucleated RBC % Not Reportable, Neutrophils # (Manual) 5.0, Lymphocytes # (Manual) 0.5 L, Monocytes # (Manual) 0.2, Eosinophils # (Manual) 0.0, Basophils # (Manual) 0.0, Differential Comment MANUAL DIFFERENTIAL, Platelet Morphology NORMAL APPEARANCE, RBC Morph Micro Appear 2+ ANISOCYTOSIS - Diagnostic Imaging Results Diagnostic Imaging Results: positive: Prelim report reviewed, Read independently Diagnostic Imaging Results Comments: CT scan of the chest abdomen and pelvis demonstrates bilateral pleural effusions, moderate pneumoperitoneum, moderate free fluid within the abdomen and pelvis consistent with feculent peritonitis, though the source of the free fluid and air is unclear to me. There is also decreased enhancement of the small bowel indicating possible ischemia. - Consultation Note Consultation Note: This is a 72-year-old female with: 1. Peritonitis, pneumoperitoneum, free fluid, bowel ischemia versus necrosis The patient's CT scan is consistent with an abdominal catastrophe. The underlying etiology of her perforation is not clear based on the CT scan. I discussed options with the patient and her friend at bedside. The patient will without surgery from her intra-abdominal process. However, with surgery, she is at very high risk of in the OR or in the short-term after surgery. Intraoperative findings may necessitate a colostomy or open abdomen for period of time. I also explained that if we are to proceed with surgery, time is of the essence, and we should do so emergently. I offered to allow the patient and her friend some time to speak amongst themselves or to bring in under their members of the team to assist with this difficult decision. 2. Acute on chronic respiratory failure The patient is on 3 L of home oxygen and is now on a mask If she were to have surgery, she likely would require prolonged intubation 3. RA, dysphagia -Longstanding medical problems When I explained the situation to the patient and her friend, the patient stated that she did not want "a bag" or "tubes" and did not want to surgery. She reiterated to me several times that she does not want surgery and instead would like to be made comfortable. She understands that she has essentially no chance of survival without surgery, though her prognosis is grim regardless. I confirmed with both the patient and her friend that this wish is consistent with those that she has expressed previously. I did discuss the patient's decision with the primary emergency department provider, Dr. Howard, as well as the physician running the medicine service, Dr. Francois. Surgery will sign off at this time, but is available if there are additional questions or concerns. Thank you for consulting me in the care of this patient.
[2023-04-04] MEDS: HYDROmorphone 1 MG/ML CARPUJECT IVP STA (17:26)
[2023-04-04] MEDS: MORPHINE 2 MG/ML CARPUJECT IVP PRN (21:24)
[2023-04-04] MEDS: SODIUM CHLORIDE FLUSH 0.9% 10 ML SYRINGE IVP SCH (21:28)
[2023-04-05] MEDS: LORazepam 2 MG/ML VIAL IVP PRN (06:16)
[2023-04-05] MEDS ORDERED: PROCHLORPERAZINE 10 MG/2 ML VIAL IVP PRN (08:25)
--- NOTE | 2023-04-05 18:43 | PROVIDER PROGRESS NOTE ---
Assessment/Plan - Problem List (1) Perforated abdominal viscus Assessment/Plan: CT of the abdomen showed peritonitis, free fluid, a pneumoperitoneum with early signs of bowel necrosis. Given this catastrophic CT, general surgery was consulted and explained to the patient that given her high risk stratification, she may not survive a surgery. Patient had a recent NSTEMI and is at risk for a repeat [place]. If she were to have the surgery, it is likely that she would need to be on a ventilator and have a prolonged recovery given her malnutrition. She was aware of her options and chose to not undergo surgery and to proceed with comfort care. Today she is mostly asleep, minimally agitated and then gets meds for that. Plan: Cont Comfort care (2) Comfort measures only status Conclusion/Plan: She is tachycardic at 130-150 and BP is starting to drop. Her is imminent I brought the 3 family members in the room up to date - Current Meds Current Meds: Current Medications Generic Name Dose Route Start Last Admin Trade Name Freq PRN Reason Stop Dose Admin Lorazepam 1 mg 04/04/23 16:46 04/05/23 14:56 Lorazepam 2 Mg/Ml Vial IVP 1 mg Q6H PRN Administration Anxiety/Agitation Morphine Sulfate 2 mg 04/04/23 16:46 04/05/23 18:31 Morphine 2 Mg/Ml Carpuject IVP 2 mg Q2HR PRN Administration Severe Pain (Level 7-10)/ SOA Sodium Chloride 10 ml 04/04/23 17:00 04/05/23 18:32 Sodium Chloride Flush 0.9% 10 Ml Syringe IVP 10 ml 0100,0900,1700 LEV Administration - Lab Result Fish Bone Diagrams: 04/04/23 12:14 04/04/23 12:14 - Additional Planning My Orders: My Active Orders 04/05/23 08:25 Prochlorperazine Inj [Compazine Inj] 10 mg IVP Q6HR PRN 04/05/23 10:16 Vital Signs [RC] DAILY Subjective - Subjective Patient Reports: Other (She is obtunded after narcotics, no respinse to touch) Objective Vital Signs: Vital Signs - 24 hr 04/04/23 04/04/23 04/05/23 19:00 19:32 07:18 If not protocol 6 6 6 : Oxygen Flow, liters/minute Oxygen O2 Source Simple Mask I&O (Last 24 Hrs): Intake and Output Totals x24h 04/03/23 04/04/23 04/05/23 23:59 23:59 23:59 Intake Total 2102.583 1122.417 Output Total 600 Balance 2102.583 522.417 General: Other (Lethargic, no response to touch) HEENT: Other (Cachectic, sunken eyes and cheeks, dry mucosa, is mouth breathing) Neck: No JVD, Other (Prominent carotid pulse, tachycardic) Neuro: Other (Obtunded, does move all extremities spontaneously) Cardiovascular: Other (Distant heart sounds, tachycardic) Respiratory: No respiratory distress, Other (Poor air movement but clear lung) Abdomen: Soft Extremities: No edema, Other (Muscle wasting) - Results Results: Laboratory Results WBC 6.0 x10^3/uL (4.8-10.8) 04/04/23 12:14 RBC 4.82 10^6/uL (4.20-5.40) 04/04/23 12:14 Hgb 14.0 g/dL (12.0-16.0) 04/04/23 12:14 Hct 45.6 % (37.0-47.0) 04/04/23 12:14 MCV 94.6 fL (81.0-99.0) 04/04/23 12:14 MCH 29.0 pg (27.0-31.0) 04/04/23 12:14 MCHC 30.7 g/dL (32.0-36.0) L 04/04/23 12:14 RDW 14.6 % (12.0-15.0) 04/04/23 12:14 Plt Count 391 10^3/uL (130-450) 04/04/23 12:14 MPV 9.9 fL (7.9-10.8) 04/04/23 12:14 Neut # (Auto) Not Reportable 04/04/23 12:14 Lymph # (Auto) Not Reportable 04/04/23 12:14 [place] # (Auto) Not Reportable 04/04/23 12:14 Eos # (Auto) Not Reportable 04/04/23 12:14 Baso # (Auto) Not Reportable 04/04/23 12:14 Absolute Nucleated RBC Not Reportable 04/04/23 12:14 Total Counted 100 04/04/23 12:14 Band Neuts % (Manual) 32 % (0-10) H 04/04/23 12:14 Abnorm Lymph % (Manual) 0 % 04/04/23 12:14 Metamyelocytes % 2 % (-0) H 04/04/23 12:14 Myelocytes % 2 % (-0) H 04/04/23 12:14 Nucleated RBC % Not Reportable 04/04/23 12:14 Neutrophils # (Manual) 5.0 10^3/uL (1.5-6.6) 04/04/23 12:14 Lymphocytes # (Manual) 0.5 10^3/uL (1.5-3.5) L 04/04/23 12:14 Monocytes # (Manual) 0.2 10^3/uL (0.0-1.0) 04/04/23 12:14 Eosinophils # (Manual) 0.0 10^3/uL (0-0.7) 04/04/23 12:14 Basophils # (Manual) 0.0 10^3/uL (0-0.1) 04/04/23 12:14 Differential Comment MANUAL DIFFERENTIAL 04/04/23 12:14 Platelet Morphology NORMAL APPEARANCE (NORMAL) 04/04/23 12:14 RBC Morph Micro Appear 2+ ANISOCYTOSIS (NORMAL) 04/04/23 12:14 Sodium 139 mmol/L (135-145) 04/04/23 12:14 Potassium 3.5 mmol/L (3.5-4.5) 04/04/23 12:14 Chloride 96 mmol/L (101-111) L 04/04/23 12:14 Carbon Dioxide 34 mmol/L (21-32) H 04/04/23 12:14 Anion Gap 9.0 (6-13) 04/04/23 12:14 BUN 34 mg/dL (6-20) H 04/04/23 12:14 Creatinine 0.3 mg/dL (0.6-1.3) L 04/04/23 12:14 Estimated GFR (MDRD) 220 (>89) 04/04/23 12:14 Glucose 57 mg/dL (74-104) L* 04/04/23 12:14 Calcium 10.1 mg/dL (8.5-10.3) 04/04/23 12:14 Phosphorus 4.5 mg/dL (2.5-5.0) 04/04/23 12:14 Magnesium 2.0 mg/dL (1.7-2.3) 04/04/23 12:14 Total Bilirubin 0.8 mg/dL (0.2-1.0) 04/04/23 12:14 AST 25 IU/L (10-42) 04/04/23 12:14 ALT 15 IU/L (10-60) 04/04/23 12:14 Alkaline Phosphatase 178 IU/L (42-121) H 04/04/23 12:14 Troponin I High Sens 16.0 ng/L (2.3-14.8) H* 04/04/23 12:15 Total Protein 6.4 g/dL (6.4-8.9) 04/04/23 12:14 Albumin 2.5 g/dL (3.2-5.5) L 04/04/23 12:14 Globulin 3.9 g/dL (2.1-4.2) 04/04/23 12:14 Albumin/Globulin Ratio 0.6 (1.0-2.2) L 04/04/23 12:14 Lipase < 10 U/L (11-82) L 04/04/23 12:14
[2023-04-05] MEDS: SODIUM CHLORIDE FLUSH 0.9% 10 ML SYRINGE IVP PRN (21:11)
[2023-04-06 09:04] VITALS: BP 112/75; O2SAT 71
--- NOTE | 2023-04-06 12:21 | PHARMACY PROGRESS NOTE ---
- Best Possible Medication History Admit Date and Time: 04/05/23 0814 Processed by: Pharmacy Medications reviewed in ED?: No Medication History completed: In progress Patient Interview: Pt unable to participate Secondary Source(s): Previous admit records Patient under comfort care measures. Med list updated based on discharge medication list from a month ago. As the person ultimately responsible for medication therapy, providers are able to order a medication from an existing home medication list in [facility] via the "Reconcile Routine" prior to Confirmation of that medication by family support coordinator. Such practice is discouraged except when the physician, in their clinical judgment, deems that a medical need exists for a medication without regard to previous use.
[2023-04-06] MEDS: COD LIVER OIL/ZINC OXIDE 113 GM TUBE TOP PRN (16:53)
--- NOTE | 2023-04-06 19:55 | PROVIDER PROGRESS NOTE ---
Assessment/Plan - Problem List (1) Perforated abdominal viscus Assessment/Plan: CT of the abdomen showed peritonitis, free fluid, a pneumoperitoneum with early signs of bowel necrosis. Given this catastrophic CT, general surgery was consulted and explained to the patient that given her high risk stratification, she may not survive a surgery. Patient had a recent NSTEMI and is at risk for a repeat ME. If she were to have the surgery, it is likely that she would need to be on a ventilator and have a prolonged recovery given her malnutrition. She was aware of her options and chose to not undergo surgery and to proceed with comfort care. She is now mostly asleep, when she get (minimally) agitated and appears uncomfortable, she then gets meds for that. Plan: Cont Comfort care (2) Comfort measures only status Conclusion/Plan: She is tachycardic at 130-150 and BP is starting to drop. Her is imminent I brought the many family members in the room up to date - Current Meds Current Meds: Current Medications Generic Name Dose Route Start Last Admin Trade Name Scott PRN Reason Stop Dose Admin Lorazepam 1 mg 04/04/23 16:46 04/06/23 09:22 Lorazepam 2 Mg/Ml Vial IVP 1 mg Q6H PRN Administration Anxiety/Agitation Morphine Sulfate 2 mg 04/04/23 16:46 04/06/23 16:35 Morphine 2 Mg/Ml Carpuject IVP 2 mg Q2HR PRN Administration Severe Pain (Level 7-10)/ SOA Sodium Chloride 10 ml 04/04/23 16:44 04/06/23 07:39 Sodium Chloride Flush 0.9% 10 Ml Syringe IVP 10 ml PRN PRN Administration NEEDED PER PROVIDER ORDERS Sodium Chloride 10 ml 04/04/23 17:00 04/06/23 16:46 Sodium Chloride Flush 0.9% 10 Ml Syringe IVP 10 ml 0100,0900,1700 LEV Administration Zinc Oxide 113 gm 04/04/23 20:12 04/06/23 16:53 Cod Liver Oil/Zinc Oxide 113 Gm Tube TOP 1 applic PRN PRN Administration Skin Care - Lab Result Fish Bone Diagrams: 04/04/23 12:14 04/04/23 12:14 Subjective - Subjective Patient Reports: Resting Comfortably Objective Vital Signs: Vital Signs - 24 hr 04/06/23 04/06/23 00:13 08:55 Temperature 36.2 C L Heart Rate [ 132 H Brachial] Respiratory 21 24 Rate Blood Pressure 112/75 [Right Brachial artery] O2 Saturation 71 L Oxygen O2 Source Room air I&O (Last 24 Hrs): Intake and Output Totals x24h 04/04/23 04/05/23 04/06/23 23:59 23:59 23:59 Intake Total 2102.583 1122.417 Output Total 600 Balance 2102.583 522.417 General: Other (Asleep) HEENT: Other (Dry mucosa, mouth breathing. Cachectic. Sunken eyes, sunken cheeks) Neck: Other (Prominent trachea, thin neck) Neuro: Other (Obtunded, is sedated after Ativan and narcotics) Cardiovascular: Regular rate, Other (Systolic murmur) Respiratory: No respiratory distress Abdomen: Soft Extremities: No edema, Other (Severe muscle wasting) - Results Results: Laboratory Results WBC 6.0 x10^3/uL (4.8-10.8) 04/04/23 12:14 RBC 4.82 10^6/uL (4.20-5.40) 04/04/23 12:14 Hgb 14.0 g/dL (12.0-16.0) 04/04/23 12:14 Hct 45.6 % (37.0-47.0) 04/04/23 12:14 MCV 94.6 fL (81.0-99.0) 04/04/23 12:14 MCH 29.0 pg (27.0-31.0) 04/04/23 12:14 MCHC 30.7 g/dL (32.0-36.0) L 04/04/23 12:14 RDW 14.6 % (12.0-15.0) 04/04/23 12:14 Plt Count 391 10^3/uL (130-450) 04/04/23 12:14 MPV 9.9 fL (7.9-10.8) 04/04/23 12:14 Neut # (Auto) Not Reportable 04/04/23 12:14 Lymph # (Auto) Not Reportable 04/04/23 12:14 [place] # (Auto) Not Reportable 04/04/23 12:14 Eos # (Auto) Not Reportable 04/04/23 12:14 Baso # (Auto) Not Reportable 04/04/23 12:14 Absolute Nucleated RBC Not Reportable 04/04/23 12:14 Total Counted 100 04/04/23 12:14 Band Neuts % (Manual) 32 % (0-10) H 04/04/23 12:14 Abnorm Lymph % (Manual) 0 % 04/04/23 12:14 Metamyelocytes % 2 % (-0) H 04/04/23 12:14 Myelocytes % 2 % (-0) H 04/04/23 12:14 Nucleated RBC % Not Reportable 04/04/23 12:14 Neutrophils # (Manual) 5.0 10^3/uL (1.5-6.6) 04/04/23 12:14 Lymphocytes # (Manual) 0.5 10^3/uL (1.5-3.5) L 04/04/23 12:14 Monocytes # (Manual) 0.2 10^3/uL (0.0-1.0) 04/04/23 12:14 Eosinophils # (Manual) 0.0 10^3/uL (0-0.7) 04/04/23 12:14 Basophils # (Manual) 0.0 10^3/uL (0-0.1) 04/04/23 12:14 Differential Comment MANUAL DIFFERENTIAL 04/04/23 12:14 Platelet Morphology NORMAL APPEARANCE (NORMAL) 04/04/23 12:14 RBC Morph Micro Appear 2+ ANISOCYTOSIS (NORMAL) 04/04/23 12:14 Sodium 139 mmol/L (135-145) 04/04/23 12:14 Potassium 3.5 mmol/L (3.5-4.5) 04/04/23 12:14 Chloride 96 mmol/L (101-111) L 04/04/23 12:14 Carbon Dioxide 34 mmol/L (21-32) H 04/04/23 12:14 Anion Gap 9.0 (6-13) 04/04/23 12:14 BUN 34 mg/dL (6-20) H 04/04/23 12:14 Creatinine 0.3 mg/dL (0.6-1.3) L 04/04/23 12:14 Estimated GFR (MDRD) 220 (>89) 04/04/23 12:14 Glucose 57 mg/dL (74-104) L* 04/04/23 12:14 Calcium 10.1 mg/dL (8.5-10.3) 04/04/23 12:14 Phosphorus 4.5 mg/dL (2.5-5.0) 04/04/23 12:14 Magnesium 2.0 mg/dL (1.7-2.3) 04/04/23 12:14 Total Bilirubin 0.8 mg/dL (0.2-1.0) 04/04/23 12:14 AST 25 IU/L (10-42) 04/04/23 12:14 ALT 15 IU/L (10-60) 04/04/23 12:14 Alkaline Phosphatase 178 IU/L (42-121) H 04/04/23 12:14 Troponin I High Sens 16.0 ng/L (2.3-14.8) H* 04/04/23 12:15 Total Protein 6.4 g/dL (6.4-8.9) 04/04/23 12:14 Albumin 2.5 g/dL (3.2-5.5) L 04/04/23 12:14 Globulin 3.9 g/dL (2.1-4.2) 04/04/23 12:14 Albumin/Globulin Ratio 0.6 (1.0-2.2) L 04/04/23 12:14 Lipase < 10 U/L (11-82) L 04/04/23 12:14
--- NOTE | 2023-04-07 14:35 | Discharge Plan ---
Discharge Plan Problem Reviewed?: Yes Disposition: 20 No Smoking: If you smoke, Please STOP! Call for help.
--- NOTE | 2023-04-07 14:36 | DISCHARGE SUMMARY ---
"Discharge Summary Admit Date: 04/04/23 Discharge Date: 04/07/23 Discharging Provider: Dr Candice Greer Primary Care Provider: Dr Anguiano ([facility]) Discharge Disposition: 20 - HPI History of Present Illness: Jonathan is a 72 year old female who smokes daily, with a history of peripheral vascular disease, NSTEMI, and failure to thrive who presents to the ED with abdominal pain, diarrhea, and decreased appetite for the past few days. She feels bloated and overall week. A CT was done that showed bowel perforation with unclear etiology. Blue fecal debris within the abdomen, with moderate volume pneuromperitoneum and severe bowel eema. Findings are concerning for early bowel necrosis. Additionally, there are signs of peritonitis. General surgery was consulted, and spoke to the patient at length about her prognosis. Patient was given options for her care and confirmed she did not want to continue with surgery. She is a jorge lady. Is decisional. Is very fatigued and miserable. We will admit her for comfort care. The patient will get morphine for pain relief, Ativan for air hunger and anxiety, Tylenol for fever, Robinul for secretions. I am not ordering any blood work. No maintenance IV fluids. She will not receive antibiotics. There will be no oxygen unless she needs it for comfort. - CONSULTS | PROCEDURES Consultations: Gen Ena. Surgery - HOSPITAL COURSE Hospital Course: (1) Perforated abdominal viscus CT of the abdomen showed peritonitis, free fluid, a pneumoperitoneum with early signs of bowel necrosis. Given this catastrophic finding on CT, general surgery was consulted and explained to the patient that given her high risk stratification, she may not survive a surgery. Patient has COPD and had a recent NSTEMI. She is at risk for a repeat IA, or needing prolonged ventilator management or having a prolonged recovery given her malnutrition. She was aware of her options and chose to not undergo surgery and to proceed with comfort care. (2) Comfort measures only status She received medications for comfort. She on 04/07/2023 at 1410 (3) Hx of myocardial infarction She had an IA a month previously. (4) COPD As per Hx (5) PVD (peripheral vascular disease) Patient had a history of stenting (6) Rheumatoid arthritis As per Hx (7) Severe protein calorie malnutrition Her BMI was 16.8. - ALLERGIES Allergies/Adverse Reactions: Allergies Allergy/AdvReac Type Severity Reaction Status Date / Time hydrochlorothiazide Allergy Anaphylaxis Verified 04/04/23 11:48 hydroxychloroquine Allergy Anaphylaxis Verified 04/04/23 11:48 ibuprofen AdvReac Nausea Verified 04/04/23 11:48 Optifoam Allergy Rash Uncoded 04/04/23 11:48 coban AdvReac Hives Uncoded 04/04/23 11:48 - MEDICATIONS Home Medications: Ambulatory Orders Medication Instructions Recorded Confirmed Diclofenac Sodium Dr [Voltaren] 75 mg PO BID 12/27/22 04/06/23 sulfaSALAzine [Sulfasalazine] 1,000 mg PO BID 12/27/22 04/06/23 Aspirin [Aspirin EC] 81 mg PO DAILY 02/27/23 04/06/23 Acetaminophen [Pain Relief Extra 500 mg PO Q6H PRN 02/28/23 04/06/23 Strength] Multivitamin 1 tab PO DAILY 02/28/23 04/06/23 Amlodipine Besylate [Norvasc] 2.5 mg PO DAILY #30 tablet 03/09/23 04/06/23 Atorvastatin [Lipitor] 80 mg PO QPM #60 tab 03/09/23 04/06/23 Calcium Carbonate [Tums (Calcium 500 mg PO TID #90 tab 03/09/23 04/06/23 Carbonate 500mg)] Cholecalciferol [Vitamin D3] 800 unit PO DAILY #60 tab 03/09/23 04/06/23 Cyanocobalamin [Vitamin B-12] 500 mcg PO DAILY #30 tab 03/09/23 04/06/23 HYDROcod/ACETAM 5/325 [[place] 5/325] 1 tab PO Q6HR PRN #20 tab 03/09/23 04/06/23 Ipratropium/Albuterol [Duoneb] 3 ml INH Q4HR PRN #30 ea 03/09/23 04/06/23 Metoprolol Succinate [Toprol Xl] 12.5 mg PO BID #30 tab 03/09/23 04/06/23 Nitroglycerin [Nitrostat] 0.4 mg SL [id number] #25 tablet 03/09/23 04/06/23 Simethicone [Mylicon] 80 mg PO Q6HR PRN #20 tab 03/09/23 04/06/23 Zinc Oxide 20% Oint [Zinc Oxide] 1 applic TOP PRN PRN each 03/09/23 04/06/23 - LABS Result Diagrams: 04/04/23 12:14 04/04/23 12:14"
== END 2023-04-07 14:10 | disposition expired ==
LOC: EDUNIT# → ED 11:39 → UNDOADMOB 16:44 → MS2 16:44 → INTOOBSV 16:44 → MS2 04-05 08:14
PROVIDERS: ADMIT Specialist; ATTEND Internal Medicine
DX: K63.1 Perforation of intestine (nontraumatic) (principal); K65.9 Peritonitis, unspecified; J43.9 Emphysema, unspecified; Z51.5 Encounter for palliative care; J96.21 Acute and chronic respiratory failure with hypoxia; E43 Unspecified severe protein-calorie malnutrition; R62.7 Adult failure to thrive; Z68.1 Body mass index [BMI] 19.9 or less, adult; M06.9 Rheumatoid arthritis, unspecified; R13.10 Dysphagia, unspecified; Z66 Do not resuscitate; I10 Essential (primary) hypertension; F17.200 Nicotine dependence, unspecified, uncomplicated; I73.9 Peripheral vascular disease, unspecified; R00.0 Tachycardia, unspecified; I25.2 Old myocardial infarction; E78.00 Pure hypercholesterolemia, unspecified; Z99.81 Dependence on supplemental oxygen; Z79.82 Long term (current) use of aspirin; Z87.01 Personal history of pneumonia (recurrent); Z88.6 Allergy status to analgesic agent; Z88.8 Allergy status to other drugs, medicaments and biological substances
CPT/HCPCS: 36415; 74177; 80053; 83690; 83735; 84100; 84484; 85025; 96361; 96365; 96366; 96368; 96375; 96376; 99284; 99285; A9270; G0378; J2060; Q9963; Q9967